=== PATIENT | female | born 1945 | race Caucasian/White ===

== ENCOUNTER 2016-12-05 12:57 | Emergency (ER) | payer OTHER ==
[~2016-12-05] VITALS: Ht 152.4 cm; Wt 71.0 kg
[2016-12-05 13:01] VITALS: Ht 152.4 cm; Wt 71.0 kg
[2016-12-05] MEDS ORDERED: SOD CHLORIDE 0.9% 500 ML IV STA (15:11)
[2016-12-05 15:30] LABS: ADD SCAN DIFF NO
[2016-12-05 15:31] LABS: BASOPHILS % 0.5 % (0.0-2.0); EOSINOPHILS # 0.1 10^3/ul (0.0-0.5); EOSINOPHILS % 0.6 % (0.0-7.0); HEMATOCRIT 32.7 % (37.0-47.0); HEMOGLOBIN 10.4 g/dl (12.0-16.0); LYMPHOCYTES # 1.5 10^3/ul (0.8-2.9); MEAN CORPUSCULAR HEMOGLOBIN 26.9 pg (29.0-33.0); MEAN CORPUSCULAR HGB CONC 31.8 g/dl (32.0-37.0); MEAN CORPUSCULAR VOLUME 84.5 fl (82.0-101.0); MEAN PLATELET VOLUME 9.5 fl (7.4-10.4); MONOCYTE # 0.6 10^3/ul (0.3-0.9); MONOCYTES % 7.7 % (0.0-11.0); NEUTROPHILS % 72.8 % (39.0-77.0); PLATELET COUNT 462 10^3/UL (140-415); RED BLOOD COUNT 3.87 10^6/ul (4.20-5.40); WHITE BLOOD COUNT 8.3 10^3/ul (4.8-10.8)
[2016-12-05 15:38] LABS: ADD UMIC YES; URINE BILIRUBIN (Dip) NEGATIVE (NEGATIVE); URINE BLOOD (Dip) TRACE (NEGATIVE); URINE COLOR LT. YELLOW (YELLOW); URINE GLUCOSE (Dip) NEGATIVE (NEGATIVE); URINE KETONES (Dip) NEGATIVE (NEGATIVE); URINE LEUKOCYTE ESTERASE (Dip) 1+ (NEGATIVE); URINE NITRITE (Dip) NEGATIVE (NEGATIVE); URINE TOTAL PROTEIN (Dip) NEGATIVE (NEGATIVE); URINE UROBILINOGEN (Dip) 1.0 E.U./dL (0.1-1.0)
--- NOTE | 2016-12-05 15:38 | ERD ---
ER Documentation Chief Complaint Date/Time DATE: 12/05/16 TIME: 15:36 Chief Complaint Complains of weakness x 1 month HPI This is a very pleasant 71-year-old female here with her daughter. The patient describes approximate 1 month of generalized weakness that seems to be getting slightly worse. She describes bilateral ear pain and mild lightheadedness which is her only symptom. She denies any vertigo. No chest pain or shortness of breath, no dyspnea on exertion. No fevers or chills, no chest pain abdominal pain nausea vomiting diarrhea. No weight loss. No other complaints. The patient has not seen her primary care doctor during this timeframe. ROS All systems reviewed and are negative except as per history of present illness. Medications Home Meds Active Scripts Cephalexin* (Keflex*) 500 Mg Capsule, 500 MG PO BID for 7 Days, CAP Prov:SIRI WOODWARD MD 12/05/16 Allergies Allergies: Coded Allergies: No Known Allergy (Unverified , 12/05/16) PMhx/Soc Hx Cardiac Disorders: Yes (HTN) Hx Miscellaneous Medical Probl: Yes (DM) FmHx Family History: No diabetes Physical Exam Vitals Vital Signs Date Time Temp Pulse Resp B/P Pulse Ox O2 Delivery O2 Flow Rate FiO2 12/05/16 15:31 Nasal Cannula 2 12/05/16 13:01 98.7 77 20 131/59 99 Physical Exam General: Well developed, well nourished, no acute distress Head: Normocephalic, atraumatic. Eyes: Pupils equally reactive, EOM intact ENT: Moist mucous membranes, posterior pharynx without swelling or exudates, tympanic membranes are nonbulging bilaterally Neck: Supple, no lymphadenopathy Respiratory: Lungs clear bilaterally, no distress Cardiovascular: RRR, no murmurs, rubs, or gallops Abdominal: Soft, non-tender, non-distended, no peritoneal signs : Deferred MSK: No edema, no unilateral swelling, 5/5 strength Neurologic: Alert and oriented, moving all extremities, normal speech, no focal weakness, no cerebellar signs, no pronator drift, steady gait Skin: No rash Psych: Normal mood Result Diagram: 12/05/16 1520 12/05/16 1520 Results 24 hrs Laboratory Tests Test 12/05/16 15:20 12/05/16 15:33 White Blood Count 8.310^3/ul Red Blood Count 3.8710^6/ul Hemoglobin 10.4g/dl Hematocrit 32.7% Mean Corpuscular Volume 84.5fl Mean Corpuscular Hemoglobin 26.9pg Mean Corpuscular Hemoglobin Concent 31.8g/dl Red Cell Distribution Width 14.0% Platelet Count 28830^3/UL Mean Platelet Volume 9.5fl Neutrophils % 72.8% Lymphocytes % 18.0% Monocytes % 7.7% Eosinophils % 0.6% Basophils % 0.5% Nucleated Red Blood Cells % 0.0/100WBC Neutrophils # 6.010^3/ul Lymphocytes # 1.510^3/ul Monocytes # 0.610^3/ul Eosinophils # 0.110^3/ul Basophils # 0.010^3/ul Nucleated Red Blood Cells # 0.010^3/ul Prothrombin Time 14.4Sec Prothrombin Time Ratio 1.1 INR International Normalized Ratio 1.12 Activated Partial Thromboplast Time 33.0Sec Urine Color LT. YELLOW Urine Clarity SLIGHTLY CLOUDY Urine pH 5.5 Urine Specific [place] 1.010 Urine Ketones NEGATIVE Urine Nitrite NEGATIVE Urine Bilirubin NEGATIVE Urine Urobilinogen 1.0 E.U./dL Urine Leukocyte Esterase 1+ Urine Microscopic RBC 0-2/HPF Urine Microscopic WBC 25-50/HPF Urine Squamous Epithelial Cells MODERATE Urine Bacteria FEW Urine Hemoglobin TRACE Urine Glucose NEGATIVE% Urine Total Protein NEGATIVE Sodium Level 135mmol/L Potassium Level 4.9mmol/L Chloride Level 99mmol/L Carbon Dioxide Level 29mmol/L Anion Gap 12 Blood Urea Nitrogen 12mg/dl Creatinine 0.77mg/dl Glucose Level 113mg/dl Calcium Level 9.2mg/dl Total Bilirubin 0.2mg/dl Direct Bilirubin 0.00mg/dl Indirect Bilirubin 0.2mg/dl Aspartate Amino Transf (AST/SGOT) 44IU/L Alanine Aminotransferase (ALT/SGPT) 27IU/L Alkaline Phosphatase 90IU/L Troponin I < 0.012ng/ml Total Protein 7.3g/dl Albumin 3.6g/dl Globulin 3.70g/dl Albumin/Globulin Ratio 0.97 Free Thyroxine Index 3.72ug/ml Thyroxine (T4) 10.0ug/dl Triiodothyronine (T3) Uptake 37.2% Bedside Glucose 102mg/dL Current Medications Medications (Trade) Dose Ordered Sig/Ventura Route PRN Reason Start Time Stop Time Status Last Admin Dose Admin Sodium Chloride 500 ml @ 500 mls/hr Q1H STAT IV 12/05/16 15:11 12/05/16 16:10 DC 12/05/16 15:23 Ceftriaxone Sodium (Rocephin) 50 ml @ 100 mls/hr ONCE ONCE IVPB 12/05/16 17:30 12/05/16 17:59 DC Procedures/MDM EKG, MONITORS, & DIAGNOSTIC IMAGING: EKG: I reviewed and interpreted a 12-lead EKG. Rhythm: Normal sinus rhythm Ectopy: None Intervals: No abnormalities ST segments: No elevations or depressions T waves: No contiguous inversions Chest x-ray: I reviewed and interpreted a 1 view of the chest Mediastinum: No enlargement Cardiac silhouette: No cardiomegaly Airspace: Clear lung light bilaterally without evidence of pneumothorax Bones: No evidence of fracture CT brain: IMPRESSION: 1. No evidence of acute intracranial pathology. 2. The brain is normal in appearance. LAB INTERPRETATION: Urinary tract infection MEDICAL DECISION MAKING: The patient presents with generalized weakness for approximately 1 month. Extremely broad differential given this patient's age including urinary tract infection, subacute cardiac ischemia, subacute stroke, electrolyte disturbance, dehydration, hypothyroidism among others. However, the patient is extremely well-appearing and seems to have a subacute process over the past month. Therefore I have a low clinical concern for acute process at this time that would necessitate hospitalization. Regardless, I believe the patient would benefit from a broad workup including laboratory testing, CT imaging of the head , chest x-ray, EKG. Thyroid testing. If the patient has a negative workup outpatient referral with primary care physician would be reasonable. The patient is well kept, well-hydrated and has good social support. ER COURSE: The patient has UTI. She was provided with ceftriaxone and will be discharged on Keflex. No evidence of sepsis. She continues to be well-appearing and afebrile. Outpatient therapy would be reasonable. Close primary care follow- up recommended. I kept the patient and/or family informed of laboratory and diagnostic imaging results throughout the emergency room course. DISPOSITION PLAN: We discussed follow up with the patient's primary care doctor within 24 to 48 hours as needed. We also discussed return to the emergency room for worsening symptoms or worsening condition. Outpatient referral: None required Discharge Medications: Keflex Departure Diagnosis: Primary Impression: UTI (urinary tract infection) Urinary tract infection type: acute cystitis Hematuria presence: without hematuria Qualified Code: N30.00 - Acute cystitis without hematuria Additional Impression: Generalized weakness Condition: Good SIRI WOODWARD MD Dec 05, 2016 15:38
[2016-12-05 15:41] LABS: INR 1.12; PROTIME 14.4 Sec (12.2-14.2); PT RATIO 1.1
[2016-12-05 15:46] LABS: CHLORIDE 99 mmol/L (97-110)
[2016-12-05 15:47] LABS: ALBUMIN 3.6 g/dl (3.3-4.9); POTASSIUM 4.9 mmol/L (3.5-5.1); SODIUM 135 mmol/L (135-144)
[2016-12-05 15:49] LABS: CREATININE 0.77 mg/dl (0.44-1.00)
[2016-12-05 15:50] LABS: ALANINE AMINOTRANSFERASE 27 IU/L (13-69); ALBUMIN/GLOBULIN RATIO 0.97; ALKALINE PHOSPHATASE 90 IU/L (42-121); ANION GAP 12 (8-16); ASPARTATE AMINO TRANSFERASE 44 IU/L (15-46); BILIRUBIN,INDIRECT 0.2 mg/dl (0-1.1); BILIRUBIN,TOTAL 0.2 mg/dl (0.2-1.3); BLOOD UREA NITROGEN 12 mg/dl (7-20); CALCIUM 9.2 mg/dl (8.4-10.2); CARBON DIOXIDE 29 mmol/L (21-31); GLUCOSE 113 mg/dl (70-220); TOTAL PROTEIN 7.3 g/dl (6.1-8.1)
[2016-12-05 15:53] LABS: BACTERIA,URINE FEW; SQUAMOUS EPITHELIAL CELL,UR MODERATE; URINE RBCS 0-2 /HPF ([, 0])
[2016-12-05 16:06] LABS: TROPONIN-I < 0.012 ng/ml (0.00-0.12)
[2016-12-05 16:07] LABS: T3 UPTAKE 37.2 % (23.5-40.5)
--- NOTE | 2016-12-05 17:08 | RADRPT ---
PROCEDURE: XR Chest. CLINICAL INDICATION: Altered mental status. TECHNIQUE: Portable AP upright view of the chest was obtained. COMPARISON: None. FINDINGS: The cardiomediastinal silhouette is mildly enlarged. The lungs are clear. There is no evidence for pleural effusion, pneumothorax or pulmonary vascular congestion. The osseous structures are intact with no evidence for acute abnormality. RPTAT:HJJR IMPRESSION: Mild cardiac silhouette enlargement without evidence for acute intrathoracic pathology. Physician Stiven Date Time Electronically viewed and signed by Physician Stiven on 12/05/2016 17:08 JR/
[2016-12-05] MEDS ORDERED: CEFTRIAXONE 1 GM/50 ML (PMX) 50 ML IVPB ONE (17:30)
[2016-12-05] MEDS ORDERED: CEPH-443 PO (17:35)
--- NOTE | 2016-12-05 18:09 | RADRPT ---
PROCEDURE: CT Brain without contrast. CLINICAL INDICATION: Altered Mental Status TECHNIQUE: A CT of the brain was performed on a [employer] 64-slice CT scanner utilizing axial imaging from the skull base through the vertex without IV contrast. Multiplanar reformatted images were made. Images were reviewed on a PACS workstation. The CTDIvol is 44 mGy and the DLP is 720 mG ycm. COMPARISON: None FINDINGS: There is no intracranial hemorrhage, mass effect, or midline shift. No extra-axial fluid collection is seen. The ventricles and sulci are normal in size and configuration. The density of the brain is normal, and the mathis white matter differentiation appears well-preserved. The visualized paranasal sinuses and osseous structures are grossly unremarkable. IMPRESSION: 1. No evidence of acute intracranial pathology. 2. The brain is normal in appearance. Physician Daphne Date Time Electronically viewed and signed by Physician Daphne on 12/05/2016 18:09 ML/
[2016-12-05 19:31] VITALS: BP 137/64; PULSE 69; RESP 17; TEMP 98.4
== END 2016-12-05 19:33 | disposition home or self-care (01) ==
LOC: FTE 12:57
DX: N30.00 Acute cystitis without hematuria (principal); I10 Essential (primary) hypertension; E11.9 Type 2 diabetes mellitus without complications; R41.82 Altered mental status, unspecified; R07.9 Chest pain, unspecified
CPT/HCPCS: 70450; 71010; 80053; 81001; 82962; 84436; 84479; 84484; 85025; 85610; 85730; 93005; J0696; J7040; 36415; 81003; 96374

== ENCOUNTER 2016-12-18 10:59 | Emergency (ER) | payer MEDICARE, OTHER ==
[~2016-12-18] VITALS: Ht 162.6 cm; Wt 79.5 kg
[~2016-12-18 10:59] MED LIST: CEPH-443 PO
[2016-12-18 11:25] VITALS: Ht 162.6 cm; Wt 79.5 kg
[2016-12-18] MEDS ORDERED: SOD CHLORIDE 0.9% 1,000 ML IV STA (11:44)
[2016-12-18] MEDS ORDERED: ATEN-51 PO (11:50)
[2016-12-18] MEDS ORDERED: METF-382 PO (11:50)
[2016-12-18] MEDS ORDERED: METF1000 PO (11:52)
--- NOTE | 2016-12-18 12:20 | RADRPT ---
PROCEDURE: XR Chest. CLINICAL INDICATION: Shortness of breath. TECHNIQUE: Single frontal view. COMPARISON: 12/05/2016. FINDINGS: The lungs are clear. The heart is mildly enlarged. There is calcification in the aorta consistent with atherosclerosis. There is no pleural effusion. There is no pneumothorax. IMPRESSION: 1. Cardiomegaly. 2. Atherosclerosis. 3. Clear lungs. RPTAT: QQ .Jerardo Gregory MD, MD Date Time Electronically viewed and signed by .Jerardo Gregory MD, on 12/18/2016 12:19 .R/
[2016-12-18 12:41] LABS: ADD SCAN DIFF NO
[2016-12-18 12:46] LABS: BASOPHILS % 0.4 % (0.0-2.0); EOSINOPHILS # 0.1 10^3/ul (0.0-0.5); EOSINOPHILS % 0.6 % (0.0-7.0); HEMATOCRIT 31.4 % (37.0-47.0); HEMOGLOBIN 9.6 g/dl (12.0-16.0); LYMPHOCYTES # 1.6 10^3/ul (0.8-2.9); LYMPHOCYTES % 14.9 % (15.0-51.0); MEAN CORPUSCULAR HEMOGLOBIN 25.9 pg (29.0-33.0); MEAN CORPUSCULAR HGB CONC 30.6 g/dl (32.0-37.0); MEAN CORPUSCULAR VOLUME 84.9 fl (82.0-101.0); MEAN PLATELET VOLUME 9.8 fl (7.4-10.4); MONOCYTE # 0.8 10^3/ul (0.3-0.9); MONOCYTES % 7.6 % (0.0-11.0); NEUTROPHILS % 75.9 % (39.0-77.0); PLATELET COUNT 495 10^3/UL (140-415); RED CELL DISTRIBUTION WIDTH 14.5 % (11.5-14.5); WHITE BLOOD COUNT 10.5 10^3/ul (4.8-10.8)
[2016-12-18 13:00] LABS: ALBUMIN 3.3 g/dl (3.3-4.9); CHLORIDE 98 mmol/L (97-110)
[2016-12-18 13:01] LABS: POTASSIUM 4.2 mmol/L (3.5-5.1); SODIUM 136 mmol/L (135-144)
[2016-12-18 13:03] LABS: ALBUMIN/GLOBULIN RATIO 0.78; ALKALINE PHOSPHATASE 88 IU/L (42-121); ANION GAP 18 (8-16); ASPARTATE AMINO TRANSFERASE 36 IU/L (15-46); BILIRUBIN,INDIRECT 0.5 mg/dl (0-1.1); BILIRUBIN,TOTAL 0.5 mg/dl (0.2-1.3); BLOOD UREA NITROGEN 12 mg/dl (7-20); CARBON DIOXIDE 24 mmol/L (21-31); TOTAL PROTEIN 7.5 g/dl (6.1-8.1)
[2016-12-18 13:04] LABS: ALANINE AMINOTRANSFERASE 24 IU/L (13-69); GLUCOSE 114 mg/dl (70-220)
[2016-12-18 13:15] LABS: TROPONIN-I < 0.012 ng/ml (0.00-0.12)
--- NOTE | 2016-12-18 13:15 | RADRPT ---
PROCEDURE: CT Abdomen and Pelvis without contrast. CLINICAL INDICATION: Abdominal and pelvic pain. Abdominal distension. Shortness of breath. TECHNIQUE: CT scan of the abdomen and pelvis without contrast was performed. Coronal and sagittal reformatted images were obtained from the axial source images. Images were reviewed on a high-resolu [employer] PACS workstation. Total exam DLP is 1072.14 mGy-cm. CTDIvol is 17.94 mGy. One or more of the following dose reduction techniques were used: Automated exposure control, adjustment of the mA and/ or kV according to patient size, use of iterative reconstruction technique. COMPARISON: None. FINDINGS: The lung bases are normal. There is no pleural effusion or pericardial effusion. The heart size is normal. There is coronary artery calcification. The liver is normal in size and attenuation. There is no focal hepatic lesion. Gallstones are present in the gallbladder. There is no evidence of cholecystitis. The spleen is mildly enlarged. There is no focal splenic lesion. Both adrenals are normal with no enlargement or mass. The pancreas is unremarkable with no mass or evidence of pancreatitis. There is no renal mass or hydronephrosis. There is no renal calculus or ureteral calculus. The abdominal aorta is not dilated. There is calcification in the aorta consistent with atherosclero sis. There is no retroperitoneal lymphadenopathy or mass. The uterus is normal in size. There are small calcifications in the left side of the uterus which m ay be due to fibroids. There is a large heterogeneous mass in the midline to left side of pelvis me asuring 13.8 x 14.5 x 17.2 cm in AP, transverse, and cranial caudal dimensions. The bladder and distal ureters are normal. The periappendiceal region is unremarkable with no evidence of appendicitis. The bowel and mesentery are normal. There is a large amount of ascites. There is no free air. There are degenerative changes of the spine. There is no fracture or lytic lesion. IMPRESSION: 1. Coronary artery calcification. 2. Gallstones in the gallbladder. No evidence of cholecystitis. 3. Mild splenomegaly. 4. Atherosclerosis. 5. Possible small fibroid in the left side of uterus. 6. Large heterogeneous mass in the midline the left side of pelvis measuring 13.8 x 14.5 x 17.2 cm. This may be arising from the uterus or may be due to an ovarian neoplasm. Gynecologic consultatio n is advised. 7. Large amount of ascites. 8. Degenerative changes of the spine. RPTAT: QQ .Jerardo Gregory MD, Date Time Electronically viewed and signed by .Jerardo Gregory MD, on 12/18/2016 13:15 .R/
[2016-12-18 14:38] LABS: ADD UMIC YES; URINE BILIRUBIN (Dip) NEGATIVE (NEGATIVE); URINE BLOOD (Dip) TRACE (NEGATIVE); URINE COLOR LT. YELLOW (YELLOW); URINE GLUCOSE (Dip) NEGATIVE (NEGATIVE); URINE KETONES (Dip) NEGATIVE (NEGATIVE); URINE LEUKOCYTE ESTERASE (Dip) NEGATIVE (NEGATIVE); URINE NITRITE (Dip) NEGATIVE (NEGATIVE); URINE TOTAL PROTEIN (Dip) NEGATIVE (NEGATIVE); URINE UROBILINOGEN (Dip) 1.0 E.U./dL (0.1-1.0)
[2016-12-18 14:47] LABS: BACTERIA,URINE FEW; URINE RBCS 0-2 /HPF (0)
--- NOTE | 2016-12-18 15:06 | ERD ---
ER Documentation Chief Complaint Date/Time DATE: 12/18/16 TIME: 15:02 Chief Complaint sob on exertion, abd distention x 2 weeks HPI 71-year-old woman presents with recent mild dyspnea on exertion the main complaint is abdominal distention 2 weeks and complains of constipation. She also states she's lost about 10 pounds in the last couple of months. She denies blood per rectum or melena, no fevers or chills, no vomiting or diarrhea, no chest pain or recent travel. Patient denies calf or leg swelling. ROS All systems reviewed and are negative except as per history of present illness. Medications Home Meds Active Scripts Docusate Sodium* (Colace*) 100 Mg Capsule, 100 MG PO TID for CONSTIPATION, #30 CAP Prov:MIN NEWTON MD 12/18/16 Ibuprofen* (Motrin*) 600 Mg Tab, 600 MG PO Q8 for PAIN AND/OR INFLAMMATION, #30 TAB Prov:MIN NEWTON MD 12/18/16 Furosemide* (Lasix*) 20 Mg Tablet, 20 MG PO DAILY, #10 TAB Prov:MIN NEWTON MD 12/18/16 Reported Medications Metformin Hcl* (Metformin Hcl*) 1,000 Mg Tablet, 1000 MG PO WITH BREAKFAST, #30 TAB 12/18/16 Atenolol* (Atenolol*) 25 Mg Tablet, 25 MG PO DAILY, #30 TAB 12/18/16 Discontinued Reported Medications Metformin Hcl* (Metformin Hcl*) 500 Mg Tablet, 500 MG PO WITH BREAKFAST, #30 TAB 12/18/16 Discontinued Scripts Cephalexin* (Keflex*) 500 Mg Capsule, 500 MG PO BID for 7 Days, CAP Prov:SIRI WOODWARD MD 12/05/16 Allergies Allergies: Coded Allergies: No Known Allergy (Unverified , 12/18/16) PMhx/Soc Diabetes, hypertension, obesity Medical and Surgical Hx: pt denies Surgical Hx Hx Cardiac Disorders: Yes (HTN) Hx Miscellaneous Medical Probl: Yes (DM) Hx Alcohol Use: No Hx Substance Use: No Smoking Status: Never smoker FmHx Family History: No diabetes Physical Exam Vitals Vital Signs Date Time Temp Pulse Resp B/P Pulse Ox O2 Delivery O2 Flow Rate FiO2 12/18/16 17:03 98.3 87 18 140/73 99 Room Air 12/18/16 11:25 98.3 86 22 143/76 99 Physical Exam GENERAL: Well-developed, well-nourished, well-hydrated, in no apparent distress , looks nontoxic in appearance HEENT: Moist mucous membranes, pink conjunctiva, no cervical spine tenderness or step-off deformities, no goiter, no jaundice or icterus, extraocular movements intact without pain. No submandibular induration, and no pharyngeal erythema NEURO: Alert and oriented 3, cranial nerves II through XII intact bilaterally, pupils equal round reactive to light, no focal deficits or facial asymmetry, sensation intact distally Strength 5/5 in upper and lower extremities bilaterally CARDIAC: Regular rate and rhythm, no murmurs rubs or gallops LUNGS: Clear bilaterally no wheezing crackles or stridor ABDOMEN: Distended, protuberant abdomen without tenderness or rigidity, bowel sounds normoactive. SKIN: Warm and dry to touch, no abrasions, contusions, or hematomas, no lacerations, no ecchymosis, no target lesions, and without ulcers EXTREMITIES: No clubbing cyanosis, 1+ pitting edema in the lower extremities bilaterally, calves are bilaterally symmetrical, no Homans sign, no popliteal cord sign. Distal pulses equal and bilateral PSYCH: Normal affect without agitation or irritability Result Diagram: 12/18/16 1220 12/18/16 1220 Results 24 hrs Laboratory Tests Test 12/18/16 12:20 12/18/16 14:10 White Blood Count 10.510^3/ul Red Blood Count 3.7010^6/ul Hemoglobin 9.6g/dl Hematocrit 31.4% Mean Corpuscular Volume 84.9fl Mean Corpuscular Hemoglobin 25.9pg Mean Corpuscular Hemoglobin Concent 30.6g/dl Red Cell Distribution Width 14.5% Platelet Count 03911^3/UL Mean Platelet Volume 9.8fl Neutrophils % 75.9% Lymphocytes % 14.9% Monocytes % 7.6% Eosinophils % 0.6% Basophils % 0.4% Nucleated Red Blood Cells % 0.0/100WBC Neutrophils # 8.010^3/ul Lymphocytes # 1.610^3/ul Monocytes # 0.810^3/ul Eosinophils # 0.110^3/ul Basophils # 0.010^3/ul Nucleated Red Blood Cells # 0.010^3/ul Sodium Level 136mmol/L Potassium Level 4.2mmol/L Chloride Level 98mmol/L Carbon Dioxide Level 24mmol/L Anion Gap 18 Blood Urea Nitrogen 12mg/dl Creatinine 0.80mg/dl Glucose Level 114mg/dl Calcium Level 9.0mg/dl Total Bilirubin 0.5mg/dl Direct Bilirubin 0.00mg/dl Indirect Bilirubin 0.5mg/dl Aspartate Amino Transf (AST/SGOT) 36IU/L Alanine Aminotransferase (ALT/SGPT) 24IU/L Alkaline Phosphatase 88IU/L Troponin I < 0.012ng/ml B-Type Natriuretic Peptide 710PG/ML Total Protein 7.5g/dl Albumin 3.3g/dl Globulin 4.20g/dl Albumin/Globulin Ratio 0.78 Lipase 50U/L Carcinoembryonic Antigen 1.4ng/ml CA 125 Antigen 719.0U/ml Urine Color LT. YELLOW Urine Clarity CLEAR Urine pH 5.5 Urine Specific [place] 1.010 Urine Ketones NEGATIVE Urine Nitrite NEGATIVE Urine Bilirubin NEGATIVE Urine Urobilinogen 1.0 E.U./dL Urine Leukocyte Esterase NEGATIVE Urine Microscopic RBC 0-2/HPF Urine Microscopic WBC 0-2/HPF Urine Bacteria FEW Urine Hemoglobin TRACE Urine Glucose NEGATIVE% Urine Total Protein NEGATIVE Current Medications Medications (Trade) Dose Ordered Sig/Ventura Route PRN Reason Start Time Stop Time Status Last Admin Dose Admin Sodium Chloride (NS) 1,000 ml @ 1,000 mls/hr Q1H STAT IV 12/18/16 11:44 12/18/16 12:43 DC 12/18/16 12:12 Furosemide (Lasix) 40 mg ONCE ONCE IV 12/18/16 16:00 12/18/16 16:01 DC 12/18/16 16:08 Procedures/[facility] IV line was established patient was placed on cardiac rehab nurse rhythm strip revealed a sinus rhythm at about 80 bpm with upright P and T waves. Patient was afebrile. EKG performed, read by me: 85 bpm, normal sinus rhythm, normal axis, no acute ST segment changes, narrow QRS complex, with good R-wave progression in precordial leads. Chest X-ray 1V Interpreted by me: Soft Tissue: No acute abnormalities Bones: No acute abnormalities Mediastinum/Cardiac Silhouette/Lungs: No acute abnormalities CT scan of abdomen pelvis was performed revealing a large right pelvic mass most likely emanating from the ovary. Please refer to radiologist dictation for full report. CBC and electrolytes were normal, liver function tests normal, troponin was negative, urinalysis was negative for infection. I administered furosemide 40 mg IV for diuresis with improvement in patient's symptoms. BNP was borderline at about 700 the patient has clear lungs, is without complaints of shortness of breath at this time, and was able to breathe without difficulty while laying in a supine position. Furthermore she got up to use the restroom multiple times and showed no evidence of dyspnea on exertion. Pulmonary exam was repeated by me and lung sounds remained clear and respiratory rate was 18 breaths per minute and normal. Emergent gynecology consultation was ordered by me and Dr. Candelaria did see and evaluate the patient at the bedside and had a long discussion with her and her family members who were also at the bedside. She provided them with verbal recommendations for outpatient management and spoke to them about the possibility of pelvic neoplasm. She also requested I order HE4, CEA, and CA-125 tests which I did. CA-125 elevated concerning for pelvic neoplasm. See antigen was low. I provided the patient's son who is at the bedside with a copy of the lab values and CAT scan results, the patient does have follow-up with her medical clinic and a pension examiner at that facility. I also gave her the address and phone numbers to multiple [facility] associated gynecologists that she can see. Differential diagnoses considered, included but not limited to acute coronary syndrome, pulmonary embolism, aortic dissection, abdominal aortic aneurysm, sepsis, stroke, meningitis, encephalitis, pneumonia, appendicitis, cholecystitis , bowel obstruction, pyelonephritis, nephrolithiasis, cystitis, as well as metabolic, hematologic, and electrolyte abnormalities. As well as abscess, cellulitis, fractures, and dislocations. Patient feels much better at this time, and vital signs are normal, symptoms have improved. I did give strict instructions to return to the ED if symptoms continue or worsen, patient will otherwise follow-up with primary care physician. Patient understood instructions and agreed to plan. Departure Diagnosis: Primary Impression: Constipation Constipation type: unspecified constipation type Qualified Code: K59.00 - Constipation, unspecified constipation type Additional Impressions: Abdominal distention Pelvic neoplasm Condition: Good MIN NEWTON MD Dec 18, 2016 15:06
[2016-12-18] MEDS ORDERED: FUROSEMIDE 40 MG INJ IV ONE (16:00)
[2016-12-18] MEDS ORDERED: DOCU-144 PO (16:43)
[2016-12-18] MEDS ORDERED: FURO-110 PO (16:43)
[2016-12-18] MEDS ORDERED: IBUP-1542 PO (16:43)
[2016-12-18 17:03] VITALS: BP 140/73; PULSE 87; RESP 18; TEMP 98.3
[2016-12-18 17:28] LABS: CARCINOEMBRYONIC ANTIGEN 1.4 ng/ml (0.0-5.0)
--- NOTE | 2016-12-18 19:44 | QN ---
Documentation Comment Laborist Called to ER to consult on this 71 y.o. female who came in with SOB and abdominal distention and found to have a [id number] mass on CT scan with some abdominal ascites. The pt reports the abdominal distention as being present for only a few days. No associated pain. Pt's appetite has been diminished as she fills quickly. Pt has an appt at a clinic on 12/23 with an unspecified doctor. She reports she had her last physical exam and Pap there a few months ago. PMHx: Diabetes, on oral meds. HTN but not currently on meds. Hypercholesterolemia. PSHx: none. NKDA. On CT scan it is not readily apparent as to whether or not the mass is a fibroid or an ovarian tumor but is more likely to be ovarian in origin. O2 sat 99% EKG normal and pt w/o a h/o CHF. All cardiac labs normal except b natriuretic peptide which was 710, posssibly c/ w a mild cardiac congestion. Per the ER doctor the cutoff for immediate concern is 1000. 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 P: discussed with both the pt and her family that she does need surgery but it is not an emergent condition but should be handled sooner rather than later. We will give her a copy of the CT scan to take to her doctor and will draw a CA-125 , HE4, and CEA and those values can be checked at her visit on 12/23. Explained to the pt as she has Medicare and [employer] as a secondary that she does not need a referral to see an appropriate doctor and that the lab values will determine whether a Faculty Research Assistant or a AIR LIFT OPERATOR-Oncologist will do the surgery. Will give pt a referral list in case she is not referred quickly to another doctor by the doctor she is seeing on . Also the ER doctor explained to the pt about the cardiac labs and the importance of following up on those values and that we feel comfortable sending her home now as she is very stable. The patient and her family asked appropriate questions and they seemed to have a good understanding of the findings and were comfortable with her going home. LEE SMALL MD Dec 18, 2016 19:44
== END 2016-12-18 17:04 | disposition home or self-care (01) ==
LOC: E/R 10:59
DX: K59.00 Constipation, unspecified (principal); C76.3 Malignant neoplasm of pelvis; I10 Essential (primary) hypertension; E11.9 Type 2 diabetes mellitus without complications; E66.9 Obesity, unspecified; R10.9 Unspecified abdominal pain; Z79.84 Long term (current) use of oral hypoglycemic drugs; Z68.30 Body mass index [BMI] 30.0-30.9, adult
CPT/HCPCS: 36415; 71010; 74176; 80053; 81001; 81003; 82378; 83690; 83880; 84484; 85025; 86304; 86305; 87086; 93005; 96374; 99285; J1940; J7030

== ENCOUNTER 2019-01-19 17:47 | Inpatient (IN) | payer MEDICARE, OTHER ==
[~2019-01-19] VITALS: Ht 152.4 cm; Wt 75.8 kg
[~2019-01-19 17:47] MED LIST changes: +ATEN-51 PO; -CEPH-443 PO; +DOCU-144 PO; +FURO-110 PO; +IBUP-1542 PO; +METF100010 PO
[2019-01-19 17:48] VITALS: Ht 152.4 cm; Wt 75.8 kg
[2019-01-19] MEDS ORDERED: ASPIRIN 81 MG TAB PO STA (19:03)
[2019-01-19] MEDS ORDERED: ONDANSETRON 4 MG INJ IV STA (19:03)
[2019-01-19] MEDS ORDERED: morphine 2 MG INJ IV STA (19:03)
--- NOTE | 2019-01-19 19:54 | ERD ---
ER Documentation Chief Complaint Chief Complaint epigastric pain since 11 am HPI 73-year-old female who presents to the emergency room with chest pain and back pain. The patient states that she has a pain for 2 to 3 days. Her family is interpreting. The pain noted in the central portion of her chest and upper back, left-sided. She denies any middle of the back pain, ripping or tearing sensation or sudden onset of pain. No shortness of breath or pleuritic pain. Mild episode of nausea with one episode of nonbloody nonbilious emesis. No epigastric abdominal pain despite what was noted in triage. No fevers chills cough or hemoptysis. ROS All systems reviewed and are negative except as per history of present illness. Medications Home Meds Active Scripts Docusate Sodium* (Colace*) 100 Mg Capsule, 100 MG PO TID for CONSTIPATION, #30 CAP Prov:MIN NEWTON MD 12/18/16 Ibuprofen* (Motrin*) 600 Mg Tab, 600 MG PO Q8 for PAIN AND/OR INFLAMMATION, #30 TAB Prov:MIN NEWTON MD 12/18/16 Furosemide* (Lasix*) 20 Mg Tablet, 20 MG PO DAILY, #10 TAB Prov:MIN NEWTON MD 12/18/16 Reported Medications Metformin Hcl* (Metformin Hcl*) 1,000 Mg Tablet, 1000 MG PO WITH BREAKFAST, #30 TAB 12/18/16 Atenolol* (Atenolol*) 25 Mg Tablet, 25 MG PO DAILY, #30 TAB 12/18/16 Allergies Allergies: Coded Allergies: No Known Allergy (Unverified , 12/18/16) PMhx/Soc History of Surgery: Yes (ovarian CA removed, cardiac valve replacement) Anesthesia Reaction: No Hx Cardiac Disorders: Yes (HTN, valve replacement, hyperlipidemia) Hx Miscellaneous Medical Probl: Yes (DM, previous ovarian CA) Hx Alcohol Use: No Hx Substance Use: No Hx Tobacco Use: No Smoking Status: Unknown if ever smoked FmHx Family History: No diabetes Physical Exam Vitals Vital Signs Date Temp Pulse Resp B/P (MAP) Pulse Ox O2 O2 Flow FiO2 Time Delivery Rate 01/19/19 67 14 132/48 97 Room Air 20:52 (76) 01/19/19 98.2 83 19 141/65 97 17:48 (90) Physical Exam General: Well developed, well nourished, no acute distress Head: Normocephalic, atraumatic. Eyes: Pupils equally reactive, EOM intact ENT: Moist mucous membranes Neck: Supple, no lymphadenopathy Respiratory: Lungs clear bilaterally, no distress Cardiovascular: RRR, no murmurs, rubs, or gallops Abdominal: Soft, non-tender, non-distended, no peritoneal signs : Deferred MSK: No edema, no unilateral swelling, 5/5 strength Neurologic: Alert and oriented, moving all extremities, normal speech, no focal weakness, no cerebellar signs Skin: No rash Psych: Normal mood Result Diagram: 01/19/19192401/19/191924 Results 24 hrs Laboratory Tests Test 01/19/19 19:25 White Blood Count 6.0 10^3/ul Red Blood Count 4.89 10^6/ul Hemoglobin 14.5 g/dl Hematocrit 42.5 % Mean Corpuscular Volume 86.9 fl Mean Corpuscular Hemoglobin 29.7 pg Mean Corpuscular Hemoglobin Concent 34.1 g/dl Red Cell Distribution Width 12.6 % Platelet Count 178 10^3/UL Mean Platelet Volume 11.0 fl Immature Granulocytes % 0.500 % Neutrophils % 85.1 % Lymphocytes % 7.3 % Monocytes % 6.5 % Eosinophils % 0.3 % Basophils % 0.3 % Nucleated Red Blood Cells % 0.0 /100WBC Immature Granulocytes # 0.030 10^3/ul Neutrophils # 5.1 10^3/ul Lymphocytes # 0.4 10^3/ul Monocytes # 0.4 10^3/ul Eosinophils # 0.0 10^3/ul Basophils # 0.0 10^3/ul Nucleated Red Blood Cells # 0.0 10^3/ul Prothrombin Time 13.0 Sec Prothrombin Time Ratio 1.0 INR International Normalized Ratio 0.97 Activated Partial Thromboplast Time 27.5 Sec Sodium Level 139 mmol/L Potassium Level 3.2 mmol/L Chloride Level 93 mmol/L Carbon Dioxide Level 34 mmol/L Anion Gap 12 Blood Urea Nitrogen 26 mg/dl Creatinine 0.85 mg/dl Est Glomerular Filtrat Rate mL/min mL/min Glucose Level 217 mg/dl Calcium Level 10.3 mg/dl Troponin I < 0.012 ng/ml Current Medications Medications Dose Sig/[place] Start Time Status Last (Trade) Ordered Route PRN Stop Time Admin Dose Reason Admin Aspirin 162 mg ONCE STAT 01/19/19 DC 01/19/19 (Aspirin) PO 19:03 19:38 01/19/19 19:04 Morphine 2 mg ONCE STAT 01/19/19 DC 01/19/19 Sulfate IV 19:03 19:38 (morphine) 01/19/19 19:04 Ondansetron 4 mg ONCE STAT 01/19/19 DC 01/19/19 HCl (Zofran IV 19:03 19:38 Inj) 01/19/19 19:04 Ondansetron 4 mg ER BRIDGE 01/19/19 HCl (Zofran PRN IV 21:00 Inj) NAUSEA/VOMITI 01/20/19 20:59 NG 650 mg ER BRIDGE 01/19/19 Acetaminophen PRN PO 21:00 (Tylenol .MILD PAIN 01/20/19 20:59 Tab) 1-3 OR TEMP Procedures/MDM EKG, MONITORS, & DIAGNOSTIC IMAGING: EKG: I reviewed and interpreted a 12-lead EKG. Rhythm: Normal sinus rhythm ST Changes: No contiguous ST segment elevations T waves: No contiguous T wave inversions Impression: [No evidence of acute cardiac ischemia] Repeat EKG: EKG: I reviewed and interpreted a 12-lead EKG. Rhythm: Normal sinus rhythm ST Changes: No contiguous ST segment elevations T waves: No contiguous T wave inversions Impression: [No evidence of acute cardiac ischemia] Chest x-ray: I reviewed and interpreted a 1 view of the chest Mediastinum: No enlargement Cardiac silhouette: No cardiomegaly Airspace: Clear lung light bilaterally without evidence of pneumothorax Bones: No evidence of fracture PROCEDURES: [None] LAB INTERPRETATION: * Negative troponin MEDICAL DECISION MAKING: The patient's history, physical exam and clinical presentation is concerning for possible cardiogenic etiology and acute coronary syndrome. Based on the patient's clinical exam and history and risk factors, I have a much lower clinical concern for pulmonary embolism, acute aortic dissection, pneumothorax, pneumonia, cardiac tamponade HEART Score: >3 MACE Rate: up to 16.6% Shared Decision Making: We had a conversation regarding risk stratification, MACE rate, and the risks, benefits, alternatives of disposition planning options. Disposition planning: admit for r/o ER COURSE: * ASA and pain meds given * Pain-free. Negative troponin. CONSULTATION: [None] DISPOSITION PLAN: Telemetry admission for management of chest pain to rule out acute coronary s yndrome, serial enzymes, risk stratification and consideration of provocative testing CONSULTATION: Accepting care team and consultations: I discussed the current laboratory data, diagnostic imaging and emergency care provided. Admitting team: Dr. Adams Admitting team indication: Insurance directed Departure Diagnosis: Primary Impression: Chest pain Chest pain type: unspecified Qualified Codes: R07.9 - Chest pain, unspecified Condition: Stable SIRI WOODWARD MD January 19, 2019 19:54
[2019-01-19] MEDS ORDERED: ONDANSETRON 4 MG INJ IV PRN (21:00)
[2019-01-19] MEDS ORDERED: ACETAMINOPHEN 325 MG TAB PO PRN ×2 (21:00→23:30)
--- NOTE | 2019-01-19 23:17 | HP ---
Date/Time of Note Date/Time of Note DATE: 01/19/19 TIME: 23:17 Assessment/Plan VTE Prophylaxis Pharmacological prophylaxis: heparin Lines/Catheters IV Catheter Type (from Nrsg): Saline Lock Assessment/Plan Assessment/Plan 1. Chest pain: Rule out ACS -Telemetry monitoring -Aspirin, nitro. As needed supplemental oxygen -Serial troponin -2D echo -EKG without ST elevation or depression -Cardiology consult 2. Diffuse abdominal pain with nausea/vomiting -Obtain CT abdomen/pelvis -PPI 3. Hypertension: Adjust antihypertensive as needed 4. Type 2 diabetes: Check A1c. Continue metformin with ISS 5. History of ovarian cancer: Status post surgery 6. Probable history of CHF: Continue Lasix. Follow-up 2D echo result Result Diagram: 01/19/19192401/19/191924 Results 24hrs Laboratory Tests Test 01/19/19 19:25 White Blood Count 6.0 # Red Blood Count 4.89 # Hemoglobin 14.5 # Hematocrit 42.5 # Mean Corpuscular Volume 86.9 Mean Corpuscular Hemoglobin 29.7 Mean Corpuscular Hemoglobin Concent 34.1 Red Cell Distribution Width 12.6 Platelet Count 178 # Mean Platelet Volume 11.0 H Immature Granulocytes % 0.500 H Neutrophils % 85.1 H Lymphocytes % 7.3 L Monocytes % 6.5 Eosinophils % 0.3 Basophils % 0.3 Nucleated Red Blood Cells % 0.0 Immature Granulocytes # 0.030 Neutrophils # 5.1 Lymphocytes # 0.4 L Monocytes # 0.4 Eosinophils # 0.0 Basophils # 0.0 Nucleated Red Blood Cells # 0.0 Prothrombin Time 13.0 Prothrombin Time Ratio 1.0 INR International Normalized Ratio 0.97 Activated Partial Thromboplast Time 27.5 Sodium Level 139 Potassium Level 3.2 L Chloride Level 93 L Carbon Dioxide Level 34 H Anion Gap 12 Blood Urea Nitrogen 26 H Creatinine 0.85 Est Glomerular Filtrat Rate mL/min Glucose Level 217 Calcium Level 10.3 H Troponin I < 0.012 HPI/ROS Admit Date/Time Admit Date/Time Hx of Present Illness This is a 73-year-old female with a history of hypertension, type 2 diabetes, dyslipidemia, valve replacement, ovarian cancer status post surgery who presents the ER complaining of chest pain, diffuse abdominal pain, shortness of breath, nausea/vomiting. Reported chest pain started in the lower abdominal area which moved up to her chest. Patient is accompanied by her son at the bedside who helped with the history taking. Abdominal pain is diffuse, but mainly in the right upper/lower quadrant and left upper/lower quadrant area. Reported nonbilious nonbloody vomiting which started about an hour prior to arrival to the ER. Denies diarrhea. Also reported upper back pain. Denied trauma PMH/Family/Social Past Medical History Medical History: other (See HPI) Medications Current Medications Ondansetron HCl (Zofran Inj) 4 mg ER BRIDGE PRN IV NAUSEA/VOMITING; Start 01/19/19 at 21:00; Stop 01/20/19 at 20:59 Acetaminophen (Tylenol Tab) 650 mg ER BRIDGE PRN PO .MILD PAIN 1-3 OR TEMP; Start 01/19/19 at 21:00; Stop 01/20/19 at 20:59 Coded Allergies: No Known Allergy (Unverified , 12/18/16) Past Surgical History Past Surgical Hx: other (See HPI) Family History Significant Family History: no pertinent family hx Social History Alcohol Use: none Smoking Status: Unknown if ever smoked Drug Use: none Exam/Review of Systems Vital Signs Vitals Vital Signs Date Temp Pulse Resp B/P (MAP) Pulse Ox O2 O2 Flow FiO2 Time Delivery Rate 01/19/19 67 14 132/48 97 Room Air 20:52 (76) 01/19/19 98.2 17:48 Exam Constitutional: other (No acute distress) Head: normocephalic, atraumatic Eyes: PERRL Respiratory: clear to auscultation, normal air movement Cardiovascular: regular rate and rhythm, nl pulses Gastrointestinal: soft Extremities: normal pulses CHRIS SOTO MD January 19, 2019 23:17
[2019-01-19] MEDS: INSULIN GLARGINE [LANTus] (100 UNITS/ML) SYG SC SCH (23:30)
[2019-01-19] MEDS ORDERED: NACL 0.9% 3 ML SYG IV SCH (23:30)
[2019-01-19] MEDS ORDERED: ALBUTEROL/IPRATROPIUM (NEB) 3 ML AMP HHN PRN (23:30)
[2019-01-19] MEDS ORDERED: NITROGLYCERIN (SL) 0.4 MG TAB SL PRN (23:30)
[2019-01-20] VITALS (22 sets, daily range): BP systolic 76–142; BP diastolic 44–108; PULSE 64–100; RESP 17–34
[2019-01-20] MEDS ORDERED: IBUP-1544 PO (01:30)
[2019-01-20] MEDS ORDERED: CHLO25TA2 PO (01:30)
[2019-01-20] MEDS: ACCU-CHEK XX SCH (02:00)
[2019-01-20] MEDS ORDERED: POTASSIUM CHLORIDE (SR) 20 MEQ TAB PO ONE (02:13)
[2019-01-20] MEDS ORDERED: GLUCAGON 1 MG INJ IM PRN (02:30)
[2019-01-20] MEDS ORDERED: GLUCOSE GEL 15 GRAM TUBE PO PRN ×2 (02:30)
[2019-01-20] MEDS ORDERED: GLUCOSE GEL 15 GRAM TUBE BUCCAL PRN (02:30)
[2019-01-20] MEDS ORDERED: DEXTROSE 50% 50 ML SYRINGE IV PRN ×2 (02:30)
[2019-01-20] MEDS: INSULIN ASPART [NOVOLOG] 3 ML PEN SC SCH ×5 (07:55→20:52)
[2019-01-20] MEDS: metFORMIN 500 MG TAB PO SCH (08:13)
[2019-01-20] MEDS: DOCUSATE SODIUM 100 MG CAP PO SCH ×4 (08:14→21:00)
[2019-01-20] MEDS: ASPIRIN 81 MG TAB PO SCH (08:14)
[2019-01-20] MEDS: ATENOLOL 25 MG TAB PO SCH (08:15)
[2019-01-20] MEDS: FUROSEMIDE 20 MG TAB PO SCH (08:15)
[2019-01-20] MEDS: HEPARIN 5,000 UNIT/1 ML VIAL SC SCH ×2 (08:15→20:59)
[2019-01-20] MEDS: ONDANSETRON 4 MG INJ IV PRN (10:35)
--- NOTE | 2019-01-20 17:46 | PN ---
Date/Time of Note Date/Time of Note DATE: 01/20/19 TIME: 17:39 Assessment/Plan VTE Prophylaxis Risk score (from Ns)>0 risk: 2 SCD applied (from Ns): Yes Pharmacological prophylaxis: heparin Lines/Catheters IV Catheter Type (from Nrs): Peripheral IV Assessment/Plan Hospital Course 1. Acute encephalopathy Patient went into A. fib and was subsequently noted to be altered, code stroke has been called, CT head is currently negative and patient is now more arousable Telemetry neurology consultation appreciated, no indication for TPA, recommendation is for MRI of the head No reported history of A. fib and the patient presented in sinus rhythm, consider anticoagulation for stroke prevention Patient with a fever of [address] abdomen that shows possible cholecystitis Zosyn IV Echo and carotid ultrasound 2. Abdominal pain like secondary to acute cholecystitis CT abdomen shows likely acute cholecystitis Follow-up on ultrasound of the abdomen and HIDA Zosyn IV Surgery consultation obtained 3. Chest pain No evidence of ACS Follow-up echo 4. Hypertension Adjust antihypertensive as needed 5. Type 2 diabetes A1c at 6.6 Sliding scale 6. History of ovarian cancer: Status post surgery Prophylaxis: Heparin Result Diagram: 01/20/19 0337 01/20/19 0336 Results 24hrs Laboratory Tests Test 01/19/19 19:25 01/20/19 03:36 01/20/19 03:37 01/20/19 04:19 White Blood Count 6.0 # 5.2 Red Blood Count 4.89 # 4.58 Hemoglobin 14.5 # 13.8 Hematocrit 42.5 # 39.9 Mean Corpuscular 86.9 87.1 Volume Mean Corpuscular 29.7 30.1 Hemoglobin Mean Corpuscular 34.1 34.6 Hemoglobin Concent Red Cell 12.6 12.8 Distribution Width Platelet Count 178 # 141 # Mean Platelet Volume 11.0 H 11.3 H Immature 0.500 H 0.400 Granulocytes % Neutrophils % 85.1 H 77.6 H Lymphocytes % 7.3 L 13.0 L Monocytes % 6.5 8.0 Eosinophils % 0.3 0.4 Basophils % 0.3 0.6 Nucleated Red Blood 0.0 0.0 Cells % Immature 0.030 0.020 Granulocytes # Neutrophils # 5.1 4.1 Lymphocytes # 0.4 L 0.7 L Monocytes # 0.4 0.4 Eosinophils # 0.0 0.0 Basophils # 0.0 0.0 Nucleated Red Blood 0.0 0.0 Cells # Prothrombin Time 13.0 Prothrombin Time 1.0 Ratio INR International 0.97 Normalized Ratio Activated 27.5 Partial Thromboplast Time Sodium Level 139 139 Potassium Level 3.2 L 3.1 L Chloride Level 93 L 96 L Carbon Dioxide Level 34 H 32 H Anion Gap 12 11 Blood Urea Nitrogen 26 H 22 H Creatinine 0.85 0.82 Est Glomerular Filtrat Rate mL/min Glucose Level 217 159 Calcium Level 10.3 H 9.5 Troponin I < 0.012 < 0.012 Hemoglobin A1c 6.6 H Magnesium Level 1.8 Total Bilirubin 2.9 H Direct Bilirubin 1.60 H Indirect Bilirubin 1.3 H Aspartate Amino 1176 H Transf (AST/SGOT) Alanine 878 H Aminotransferase (AL T/SGPT) Alkaline Phosphatase 304 H Total Protein 7.5 Albumin 4.2 Globulin 3.30 H Albumin/Globulin 1.27 Ratio Triglycerides Level 118 Cholesterol Level 124 LDL Cholesterol, 66 Calculated HDL Cholesterol 34 Cholesterol/HDL 3.6 Ratio Thyroid Stimulating 4.250 Hormone (TSH) Creatine Kinase 54 Creatine Kinase 1.2 Index Creatinine Kinase MB 0.65 (Mass) Bedside Glucose 173 Test 01/20/19 06:00 01/20/19 07:46 01/20/19 11:49 01/20/19 16:16 Creatine Kinase 54 Creatine Kinase 1.0 Index Creatinine Kinase MB 0.55 (Mass) Troponin I < 0.012 Bedside Glucose 171 170 200 Subjective 24 Hr Interval Summary Constitutional: disoriented Exam/Review of Systems Exam Vitals Vital Signs Date Temp Pulse Resp B/P (MAP) Pulse Ox O2 O2 Flow FiO2 Time Delivery Rate 01/20/19 15.0 100 17:15 01/20/19 94 16:50 01/20/19 98.0 18 116/55 95 Room Air 15:06 (75) Constitutional: No alert Respiratory: clear to auscultation Gastrointestinal: soft; No distended Musculoskeletal: nl extremities to inspection Results Results 24hrs Laboratory Tests Test 01/19/19 19:25 01/20/19 03:36 01/20/19 03:37 01/20/19 04:19 White Blood Count 6.0 # 5.2 Red Blood Count 4.89 # 4.58 Hemoglobin 14.5 # 13.8 Hematocrit 42.5 # 39.9 Mean Corpuscular 86.9 87.1 Volume Mean Corpuscular 29.7 30.1 Hemoglobin Mean Corpuscular 34.1 34.6 Hemoglobin Concent Red Cell 12.6 12.8 Distribution Width Platelet Count 178 # 141 # Mean Platelet Volume 11.0 H 11.3 H Immature 0.500 H 0.400 Granulocytes % Neutrophils % 85.1 H 77.6 H Lymphocytes % 7.3 L 13.0 L Monocytes % 6.5 8.0 Eosinophils % 0.3 0.4 Basophils % 0.3 0.6 Nucleated Red Blood 0.0 0.0 Cells % Immature 0.030 0.020 Granulocytes # Neutrophils # 5.1 4.1 Lymphocytes # 0.4 L 0.7 L Monocytes # 0.4 0.4 Eosinophils # 0.0 0.0 Basophils # 0.0 0.0 Nucleated Red Blood 0.0 0.0 Cells # Prothrombin Time 13.0 Prothrombin Time 1.0 Ratio INR International 0.97 Normalized Ratio Activated 27.5 Partial Thromboplast Time Sodium Level 139 139 Potassium Level 3.2 L 3.1 L Chloride Level 93 L 96 L Carbon Dioxide Level 34 H 32 H Anion Gap 12 11 Blood Urea Nitrogen 26 H 22 H Creatinine 0.85 0.82 Est Glomerular Filtrat Rate mL/min Glucose Level 217 159 Calcium Level 10.3 H 9.5 Troponin I < 0.012 < 0.012 Hemoglobin A1c 6.6 H Magnesium Level 1.8 Total Bilirubin 2.9 H Direct Bilirubin 1.60 H Indirect Bilirubin 1.3 H Aspartate Amino 1176 H Transf (AST/SGOT) Alanine 878 H Aminotransferase (AL T/SGPT) Alkaline Phosphatase 304 H Total Protein 7.5 Albumin 4.2 Globulin 3.30 H Albumin/Globulin 1.27 Ratio Triglycerides Level 118 Cholesterol Level 124 LDL Cholesterol, 66 Calculated HDL Cholesterol 34 Cholesterol/HDL 3.6 Ratio Thyroid Stimulating 4.250 Hormone (TSH) Creatine Kinase 54 Creatine Kinase 1.2 Index Creatinine Kinase MB 0.65 (Mass) Bedside Glucose 173 Test 01/20/19 06:00 01/20/19 07:46 01/20/19 11:49 01/20/19 16:16 Creatine Kinase 54 Creatine Kinase 1.0 Index Creatinine Kinase MB 0.55 (Mass) Troponin I < 0.012 Bedside Glucose 171 170 200 Medications Medication Current Medications Ondansetron HCl (Zofran Inj) 4 mg ER BRIDGE PRN IV NAUSEA/VOMITING; Start 01/19/19 at 21:00; Stop 01/20/19 at 20:59 Acetaminophen (Tylenol Tab) 650 mg ER BRIDGE PRN PO .MILD PAIN 1-3 OR TEMP; Start 01/19/19 at 21:00; Stop 01/20/19 at 20:59 IV Flush (NS 3 ml) 3 ml PER PROTOCOL IV ; Start 01/19/19 at 23:30 Ondansetron HCl (Zofran Inj) 4 mg Q6H PRN IV NAUSEA/VOMITING Last administered on 01/20/19at 10:35; Admin Dose 4 MG; Start 01/19/19 at 23:30 Aspirin (Aspirin) 81 mg DAILY PO Last administered on 01/20/19at 08:14; Admin Dose 81 MG; Start 01/20/19 at 09:00 Nitroglycerin (Nitroglycerin (Sl Tab) 0.4 Mg) 1 tab Q5M PRN SL .CHEST PAIN; Start 01/19/19 at 23:30 Acetaminophen (Tylenol Tab) 650 mg Q6H PRN PO .PAIN 1-3 OR TEMP; Start 01/19/19 at 23:30 Heparin Sodium (Porcine) (Heparin (5000 Units/1ml)) 5,000 unit Q12 SC Last administered on 01/20/19at 08:15; Admin Dose 5,000 UNIT; Start 01/20/19 at 09:00 Albuterol/ Ipratropium (Duoneb) 3 ml Q2H RESP THERAPY PRN HHN SHORTNESS OF BREATH; Start 01/19/19 at 23:30 Diagnostic Test (Pha) (Accu-Chek) 1 ea 02 XX ; Start 01/20/19 at 02:00 Insulin Glargine (Lantus) 11 units DAILY@2000 SC ; Start 01/19/19 at 23:30 Insulin Aspart (Novolog Insulin Pen) NOVOLOG *MILD* ALGORITHM WITH MEALS BEDTIME SC ; Start 01/20/19 at 07:55 Atenolol (Tenormin) 25 mg DAILY PO Last administered on 01/20/19at 08:15; Admin Dose 25 MG; Start 01/20/19 at 09:00 Docusate Sodium (Colace) 100 mg TID PO Last administered on 01/20/19at 08:14; Admin Dose 100 MG; Start 01/20/19 at 09:00 Furosemide (Lasix) 20 mg DAILY PO Last administered on 01/20/19at 08:15; Admin Dose 20 MG; Start 01/20/19 at 09:00 Metformin HCl (Glucophage) 1,000 mg WITH BREAKFAST PO Last administered on 01/20/19at 08:13; Admin Dose 1,000 MG; Start 01/20/19 at 07:55 Miscellaneous Information 1 ea NOTE XX ; Start 01/20/19 at 02:30 Glucose (Glutose) 15 gm Q15M PRN PO DECREASED GLUCOSE; Start 01/20/19 at 02:30 Glucose (Glutose) 22.5 gm Q15M PRN PO DECREASED GLUCOSE; Start 01/20/19 at 02:30 Dextrose (D50w Syringe) 25 ml Q15M PRN IV DECREASED GLUCOSE; Start 01/20/19 at 02:30 Dextrose (D50w Syringe) 50 ml Q15M PRN IV DECREASED GLUCOSE; Start 01/20/19 at 02:30 Glucagon (Glucagen) 1 mg Q15M PRN IM DECREASED GLUCOSE; Start 01/20/19 at 02:30 Glucose (Glutose) 15 gm Q15M PRN BUCCAL DECREASED GLUCOSE; Start 01/20/19 at 02:30 ELIAS MONTGOMERY January 20, 2019 17:46
--- NOTE | 2019-01-20 17:47 | STROKE ---
Date/Time of Note Date/Time of Note DATE: 01/20/19 TIME: 17:46 Patient Information General Patient location: inpatient Arrival Date Age 73 Gender female Weight 75.8 kg POC Glucose Glucose Result Bedside Glucose - 72 Hours Test 01/20/19 04:19 01/20/19 07:46 01/20/19 11:49 01/20/19 16:16 Bedside 173 171 170 200 Glucose mg/dL (70-220) mg/dL (70-220) mg/dL (70-220) mg/dL (70-220) Vital Signs Vital Signs Vital Signs Date Temp Pulse Resp B/P (MAP) Pulse Ox O2 O2 Flow FiO2 Time Delivery Rate 01/20/19 15.0 100 17:15 01/20/19 94 16:50 01/20/19 98.0 18 116/55 95 Room Air 15:06 (75) Patient History Current Medications Allergies: Coded Allergies: No Known Allergy (Unverified , 12/18/16) Labs Coagulation Labs: Coagulation Test 01/19/19 19:25 Activated Partial Thromboplast Time 27.5 Sec (23.0-35.0) History & Physical History of Present Illness 73 F with admission for chest and abdominal pain LKW uncertain with acute confusion and lethargy in the setting of new fever, atrial fibrillation and hypoxia. NCHCT negative for acute pathology per formal read. Improved on supplemental O2 in ICU. NIH Stroke Scale NIH Stroke Scale [id number] Total Score: [id number] Date/Time Recorded DATE: 01/20/19 TIME: 17:46 Submitted By Kal Crawford t-PA Imaging Review Date/Time Imaging Reviewed DATE: 01/20/19 TIME: 17:46 t-PA Administration Recommendation: No Weight 75.8 kg Recommedation submitted by Kal Crawford Reason t-PA not Recommended Non-disabling deficit, not stroke Recommendations Impression Diagnosis 73 F with event of decreased level of arousal in the setting of new A Fib, fever, and hypoxia. Now better on supplemental O2 in ICU. No reported focal deficits. No focal deficits now other than mild hemianesthesia that may be subjective. Not tPA candidate as mild, non-disabling deficit. Event most concerning for metabolic derangement causing encephalopathy, with fever and hypoxia most evident causes. Recommendation - Low suspicion for stroke but can be further ruled-out as cause of mild sensory abnormality with MRI Brain - Best stroke prevention prison in setting of A Fib would be NOAC, but should be discussed with local PCP and Neurology prior to initiation - Consult local Neurology to guide further recs KAL CRAWFORD MD January 20, 2019 17:47
[2019-01-20] MEDS ORDERED: PIPER-TAZO 3.375 GM IV (PMX) 100 ML IVPB SCH (18:00)
[2019-01-20] MEDS: PIPER-TAZO 2.25 GM/NS 50 ML IVPB SCH ×2 (18:30→23:22)
[2019-01-20] MEDS ORDERED: ACETAMINOPHEN 650 MG SUPP PR PRN (19:00)
[2019-01-20] MEDS ORDERED: MAGNESIUM SULFATE 2 GM/50 ML 50 ML IVPB ONE (19:00)
[2019-01-20] MEDS ORDERED: SOD CHLORIDE 0.9% 1,000 ML IV ONE ×2 (19:30→23:00)
[2019-01-20] MEDS: NS + KCL 20 MEQ 1,000 ML IV SCH (21:10)
[2019-01-20] MEDS: INSULIN GLARGINE [LANTus] (100 UNITS/ML) SYG SC SCH (21:36)
[2019-01-20] MEDS: POTASSIUM CHLORIDE 100 ML IVPB SCH ×2 (22:25→23:22)
[2019-01-21] VITALS (77 sets, daily range): BP systolic 74–129; BP diastolic 35–86; PULSE 51–65; RESP 14–21
[2019-01-21] MEDS ORDERED: SOD CHLORIDE 0.9% 500 ML IV ONE (00:30)
[2019-01-21] MEDS ORDERED: NORepinephrine 8MG/250 ML (PMX 250 ML IV SCH (00:30)
[2019-01-21] MEDS: ACCU-CHEK XX SCH (02:00)
[2019-01-21] MEDS: PIPER-TAZO 2.25 GM/NS 50 ML IVPB SCH ×4 (05:36→23:39)
[2019-01-21] MEDS: INSULIN ASPART [NOVOLOG] 3 ML PEN SC SCH ×4 (07:35→20:19)
[2019-01-21] MEDS: ATENOLOL 25 MG TAB PO SCH (09:00)
--- NOTE | 2019-01-21 09:18 | CONS ---
Assessment/Plan Assessment/Plan Hospital Course (Demo Recall) 1. Possible cholecystitis -iv abx -judicious ivf -npo -HIDA Thank you, Late entry 01/20 Consultation Date/Type/Reason Admit Date/Time Date of Consultation: January 20, 2019 Date/Time of Note DATE: 01/20/19 TIME: 20:17 Past Medical History Medical History: other (See HPI) Home Meds Active Scripts Docusate Sodium* (Colace*) 100 Mg Capsule, 100 MG PO TID for CONSTIPATION, #30 CAP Prov:MIN NEWTON MD 12/18/16 Furosemide* (Lasix*) 20 Mg Tablet, 20 MG PO DAILY, #10 TAB Prov:MIN NEWTON MD 12/18/16 Reported Medications Chlorthalidone* (Chlorthalidone*) 25 Mg Tablet, 25 MG PO DAILY for 90 Days 01/20/19 Ibuprofen* (Ibuprofen*) 800 Mg Tablet, 800 MG PO Q6H PRN for PAIN LEVEL 7-10 for 30 Days, #90 01/20/19 Metformin Hcl* (Metformin Hcl*) 1,000 Mg Tablet, 1000 MG PO WITH BREAKFAST, #30 TAB 12/18/16 Atenolol* (Atenolol*) 25 Mg Tablet, 25 MG PO DAILY, #30 TAB 12/18/16 Discontinued Scripts Ibuprofen* (Motrin*) 600 Mg Tab, 600 MG PO Q8 for PAIN AND/OR INFLAMMATION, #30 TAB Prov:MIN NEWTON MD 12/18/16 Medications Current Medications IV Flush (NS 3 ml) 3 ml PER PROTOCOL IV ; Start 01/19/19 at 23:30 Ondansetron HCl (Zofran Inj) 4 mg Q6H PRN IV NAUSEA/VOMITING Last administered on 01/20/19at 10:35; Admin Dose 4 MG; Start 01/19/19 at 23:30 Aspirin (Aspirin) 81 mg DAILY PO Last administered on 01/20/19at 08:14; Admin Dose 81 MG; Start 01/20/19 at 09:00 Nitroglycerin (Nitroglycerin (Sl Tab) 0.4 Mg) 1 tab Q5M PRN SL .CHEST PAIN; Start 01/19/19 at 23:30 Acetaminophen (Tylenol Tab) 650 mg Q6H PRN PO .PAIN 1-3 OR TEMP; Start 01/19/19 at 23:30 Heparin Sodium (Porcine) (Heparin (5000 Units/1ml)) 5,000 unit Q12 SC Last administered on 01/20/19at 20:59; Admin Dose 5,000 UNIT; Start 01/20/19 at 09:00 Albuterol/ Ipratropium (Duoneb) 3 ml Q2H RESP THERAPY PRN HHN SHORTNESS OF CINDY ATH; Start 01/19/19 at 23:30 Diagnostic Test (Pha) (Accu-Chek) 1 ea 02 XX ; Start 01/20/19 at 02:00 Insulin Glargine (Lantus) 11 units DAILY@2000 SC Last administered on 01/20/19at 21:36; Admin Dose 11 UNITS; Start 01/19/19 at 23:30 Insulin Aspart (Novolog Insulin Pen) NOVOLOG *MILD* ALGORITHM WITH MEALS BEDTIME SC ; Start 01/20/19 at 07:55 Atenolol (Tenormin) 25 mg DAILY PO Last administered on 01/20/19at 08:15; Admin Dose 25 MG; Start 01/20/19 at 09:00 Docusate Sodium (Colace) 100 mg TID PO Last administered on 01/20/19at 08:14; Admin Dose 100 MG; Start 01/20/19 at 09:00 Furosemide (Lasix) 20 mg DAILY PO Last administered on 01/20/19at 08:15; Admin Dose 20 MG; Start 01/20/19 at 09:00 Metformin HCl (Glucophage) 1,000 mg WITH BREAKFAST PO Last administered on 01/20/19at 08:13; Admin Dose 1,000 MG; Start 01/20/19 at 07:55 Miscellaneous Information 1 ea NOTE XX ; Start 01/20/19 at 02:30 Glucose (Glutose) 15 gm Q15M PRN PO DECREASED GLUCOSE; Start 01/20/19 at 02:30 Glucose (Glutose) 22.5 gm Q15M PRN PO DECREASED GLUCOSE; Start 01/20/19 at 02:30 Dextrose (D50w Syringe) 25 ml Q15M PRN IV DECREASED GLUCOSE; Start 01/20/19 at 02:30 Dextrose (D50w Syringe) 50 ml Q15M PRN IV DECREASED GLUCOSE; Start 01/20/19 at 02:30 Glucagon (Glucagen) 1 mg Q15M PRN IM DECREASED GLUCOSE; Start 01/20/19 at 02:30 Glucose (Glutose) 15 gm Q15M PRN BUCCAL DECREASED GLUCOSE; Start 01/20/19 at 02:30 Piperacillin Sod/ Tazobactam Sod 50 ml @ 100 mls/hr Q6 IVPB Last administered on 01/21/19at 05:36; Admin Dose 100 MLS/HR; Start 01/20/19 at 18:00 Acetaminophen (Tylenol Supp) 650 mg Q6H PRN [place] ELEVATED TEMPERATURE Last administered on 01/20/19at 19:08; Admin Dose 650 MG; Start 01/20/19 at 19:00 Potassium Chloride/Sodium Chloride 1,000 ml @ 100 mls/hr Q10H IV Last administered on 01/20/19at 21:10; Admin Dose 100 MLS/HR; Start 01/20/19 at 20:00 Norepinephrine 250 ml @ 1.875 mls/ hr TITRATE IV Last administered on 01/21/19at 01:45; Admin Dose 1.875 MLS/HR; Start 01/21/19 at 00:30 Allergies: Coded Allergies: No Known Allergy (Unverified , 12/18/16) Past Surgical History Past Surgical Hx: other (See HPI) Social History Alcohol Use: none Smoking Status: Never smoker Drug Use: none Exam/Review of Systems Exam Vitals Vital Signs Date Temp Pulse Resp B/P (MAP) Pulse Ox O2 O2 Flow FiO2 Time Delivery Rate 01/21/19 59 16 88/35 (52) 95 Room Air 06:00 01/21/19 98.0 04:00 01/21/19 2.0 02:00 01/21/19 33 01:48 Intake and Output 01/20/19 01/20/19 01/21/19 1515:00 23:00 07:00 IntakeIntake Total 710 ml 926.75 ml OutputOutput Total 120 ml 95 ml BalanceBalance 590 ml 831.75 ml Results Result Diagram: 01/21/19 0452 01/21/19 0452 Results 24hrs Laboratory Tests Test 01/20/19 11:49 01/20/19 16:16 01/20/19 18:17 01/20/19 19:00 Bedside Glucose 170 200 196 Urine Color RONNIE Urine Clarity CLEAR Urine pH 7.0 Urine Specific 1.016 [place] Urine Ketones NEGATIVE Urine Nitrite NEGATIVE Urine Bilirubin 1+ H Urine Urobilinogen 2+ H Urine Leukocyte NEGATIVE Esterase Urine Microscopic 4 RBC Urine Microscopic 5 WBC Urine Hemoglobin 1+ H Urine Glucose NEGATIVE Urine Total Protein 2+ H Test 01/20/19 20:07 01/20/19 20:48 01/21/19 04:52 01/21/19 08:22 White Blood Count 15.7 #H 19.0 #H Red Blood Count 4.29 4.13 L Hemoglobin 12.9 12.4 Hematocrit 37.8 36.8 L Mean Corpuscular 88.1 89.1 Volume Mean Corpuscular 30.1 30.0 Hemoglobin Mean Corpuscular 34.1 33.7 Hemoglobin Concent Red Cell 13.0 13.4 Distribution Width Platelet Count 126 L 107 L Mean Platelet Volume 11.4 H 11.7 H Immature 0.900 H 3.700 H Granulocytes % Neutrophils % Segmented 76 Neutrophils % (Manual) Band Neutrophils % 17 H (Manual) Lymphocytes % Lymphocytes % 4 L (Manual) Monocytes % Monocytes % (Manual) 2 Eosinophils % Basophils % Metamyelocytes % 1 H (manual) Nucleated Red Blood 0.0 0.0 Cells % Immature 0.140 H 0.710 H Granulocytes # Neutrophils # Neutrophils # 12.3 H (Manual) Band Neutrophils # 2.6 H Lymphocytes (Manual) 0.6 L Lymphocytes # Monocytes # Monocytes # (Manual) 0.3 Eosinophils # Basophils # Metamyelocytes # 0.1 H Nucleated Red Blood Cells # Platelet Estimate NORMAL Giant Platelets 5 H Anisocytosis 1+ Microcytosis 1+ Sodium Level 137 141 Potassium Level 2.9 *L 3.8 Chloride Level 98 106 Carbon Dioxide Level 26 22 Anion Gap 13 13 Blood Urea Nitrogen 24 H 28 H Creatinine 1.85 #H 2.49 H Est Glomerular Filtrat Rate mL/min Glucose Level 160 125 Calcium Level 8.9 8.2 L Total Bilirubin 4.9 #H Direct Bilirubin 3.80 #H Indirect Bilirubin 1.1 Aspartate Amino 463 H Transf (AST/SGOT) Alanine 536 H Aminotransferase (AL T/SGPT) Alkaline Phosphatase 277 H Total Protein 6.8 Albumin 3.6 Globulin 3.20 Albumin/Globulin 1.12 Ratio Bedside Glucose 138 121 Medications Medication Current Medications IV Flush (NS 3 ml) 3 ml PER PROTOCOL IV ; Start 01/19/19 at 23:30 Ondansetron HCl (Zofran Inj) 4 mg Q6H PRN IV NAUSEA/VOMITING Last administered on 01/20/19 10:35; Admin Dose 4 MG; Start 01/19/19 at 23:30 Aspirin (Aspirin) 81 mg DAILY PO Last administered on 01/20/19 08:14; Admin Dose 81 MG; Start 01/20/19 at 09:00 Nitroglycerin (Nitroglycerin (Sl Tab) 0.4 Mg) 1 tab Q5M PRN SL .CHEST PAIN; Start 01/19/19 at 23:30 Acetaminophen (Tylenol Tab) 650 mg Q6H PRN PO .PAIN 1-3 OR TEMP; Start 01/19/19 at 23:30 Heparin Sodium (Porcine) (Heparin (5000 Units/1ml)) 5,000 unit Q12 SC Last adm inistered on 01/20/19at 20:59; Admin Dose 5,000 UNIT; Start 01/20/19 at 09:00 Albuterol/ Ipratropium (Duoneb) 3 ml Q2H RESP THERAPY PRN HHN SHORTNESS OF BREATH; Start 01/19/19 at 23:30 Diagnostic Test (Pha) (Accu-Chek) 1 ea 02 XX ; Start 01/20/19 at 02:00 Insulin Glargine (Lantus) 11 units DAILY@2000 SC Last administered on 01/20/19 21:36; Admin Dose 11 UNITS; Start 01/19/19 at 23:30 Insulin Aspart (Novolog Insulin Pen) NOVOLOG *MILD* ALGORITHM WITH MEALS BEDTIME SC ; Start 01/20/19 at 07:55 Atenolol (Tenormin) 25 mg DAILY PO Last administered on 01/20/19 08:15; Admin Dose 25 MG; Start 01/20/19 at 09:00 Docusate Sodium (Colace) 100 mg TID PO Last administered on 01/20/19 08:14; Admin Dose 100 MG; Start 01/20/19 at 09:00 Furosemide (Lasix) 20 mg DAILY PO Last administered on 01/20/19 08:15; Admin Dose 20 MG; Start 01/20/19 at 09:00 Metformin HCl (Glucophage) 1,000 mg WITH BREAKFAST PO Last administered on 01/20/19 08:13; Admin Dose 1,000 MG; Start 01/20/19 at 07:55 Miscellaneous Information 1 ea NOTE XX ; Start 01/20/19 at 02:30 Glucose (Glutose) 15 gm Q15M PRN PO DECREASED GLUCOSE; Start 01/20/19 at 02:30 Glucose (Glutose) 22.5 gm Q15M PRN PO DECREASED GLUCOSE; Start 01/20/19 at 02:30 Dextrose (D50w Syringe) 25 ml Q15M PRN IV DECREASED GLUCOSE; Start 01/20/19 at 02:30 Dextrose (D50w Syringe) 50 ml Q15M PRN IV DECREASED GLUCOSE; Start 01/20/19 at 02:30 Glucagon (Glucagen) 1 mg Q15M PRN IM DECREASED GLUCOSE; Start 01/20/19 at 02:30 Glucose (Glutose) 15 gm Q15M PRN BUCCAL DECREASED GLUCOSE; Start 01/20/19 at 02:30 Piperacillin Sod/ Tazobactam Sod 50 ml @ 100 mls/hr Q6 IVPB Last administered on 01/21/19at 05:36; Admin Dose 100 MLS/HR; Start 01/20/19 at 18:00 Acetaminophen (Tylenol Supp) 650 mg Q6H PRN [place] ELEVATED TEMPERATURE Last administered on 01/20/19at 19:08; Admin Dose 650 MG; Start 01/20/19 at 19:00 Potassium Chloride/Sodium Chloride 1,000 ml @ 100 mls/hr Q10H IV Last administered on 01/20/19at 21:10; Admin Dose 100 MLS/HR; Start 01/20/19 at 20:00 Norepinephrine 250 ml @ 1.875 mls/ hr TITRATE IV Last administered on 01/21/19at 01:45; Admin Dose 1.875 MLS/HR; Start 01/21/19 at 00:30 LALITHA HERMAN MD January 21, 2019 09:18
[2019-01-21] MEDS: HEPARIN 5,000 UNIT/1 ML VIAL SC SCH ×2 (09:47→21:22)
[2019-01-21] MEDS: FUROSEMIDE 20 MG TAB PO SCH (09:50)
[2019-01-21] MEDS: ASPIRIN 81 MG TAB PO SCH (09:50)
[2019-01-21] MEDS: DOCUSATE SODIUM 100 MG CAP PO SCH ×3 (09:50→20:39)
[2019-01-21] MEDS: metFORMIN 500 MG TAB PO SCH (09:57)
[2019-01-21] MEDS: NS + KCL 20 MEQ 1,000 ML IV SCH ×3 (11:04→21:20)
--- NOTE | 2019-01-21 11:21 | PN ---
Date/Time of Note Date/Time of Note DATE: 01/21/19 TIME: 11:14 Assessment/Plan VTE Prophylaxis Risk score (from Ns)>0 risk: 7 SCD applied (from Ns): Yes Pharmacological prophylaxis: heparin Lines/Catheters IV Catheter Type (from Nrsg): Peripheral IV Assessment/Plan Hospital Course 1. Acute encephalopathy-resolved Patient went into A. fib and was subsequently noted to be altered, code stroke has been called, CT head is currently negative and patient is now back to baseline Telemetry neurology consultation appreciated, no indication for TPA, recommendation is for MRI of the head Patient likely had a TIA during the A. fib event No reported history of A. fib and the patient presented in sinus rhythm, patient now back in sinus rhythm as of last night, consider anticoagulation for stroke prevention Patient with evidence of sepsis with fever and leukocytosis, follow-up on blood and urine cultures Zosyn IV Carotid ultrasound shows no significant stenosis Follow-up on echo 2. Abdominal pain possibly secondary to acute cholecystitis CT abdomen shows likely acute cholecystitis Ultrasound of the abdomen shows cholelithiasis but no cholecystitis Follow-up on HIDA Zosyn IV Surgery consultation appreciated 3. Chest pain No evidence of ACS Follow-up echo Cardiology consultation obtained 4. Sepsis possibly secondary to cholecystitis Patient with fevers and leukocytosis, follow-up on cultures UA and chest x-ray showed no evidence of infection Continue Zosyn 5. Hypertension Adjust antihypertensive as needed 6. Type 2 diabetes A1c at 6.6 Sliding scale 7. Paroxysmal A. fib Patient presented in sinus and was only in A. fib for several hours before spontaneously converting back to sinus Patient has no known history of A. fib Cardiology consultation obtained, defer need for anticoagulation to cardiology 8. History of ovarian cancer: Status post surgery Prophylaxis: Heparin DC planning: Continue antibiotics, follow-up on cultures, follow-up on HIDA and surgery recommendations, follow-up with cardiology recommendations Result Diagram: 01/21/19 0452 01/21/19 0452 Results 24hrs Laboratory Tests Test 01/20/19 11:49 01/20/19 16:16 01/20/19 18:17 01/20/19 19:00 Bedside Glucose 170 200 196 Urine Color RONNIE Urine Clarity CLEAR Urine pH 7.0 Urine Specific 1.016 [place] Urine Ketones NEGATIVE Urine Nitrite NEGATIVE Urine Bilirubin 1+ H Urine Urobilinogen 2+ H Urine Leukocyte NEGATIVE Esterase Urine Microscopic 4 RBC Urine Microscopic 5 WBC Urine Hemoglobin 1+ H Urine Glucose NEGATIVE Urine Total Protein 2+ H Test 01/20/19 20:07 01/20/19 20:48 01/21/19 04:52 01/21/19 08:22 White Blood Count 15.7 #H 19.0 #H Red Blood Count 4.29 4.13 L Hemoglobin 12.9 12.4 Hematocrit 37.8 36.8 L Mean Corpuscular 88.1 89.1 Volume Mean Corpuscular 30.1 30.0 Hemoglobin Mean Corpuscular 34.1 33.7 Hemoglobin Concent Red Cell 13.0 13.4 Distribution Width Platelet Count 126 L 107 L Mean Platelet Volume 11.4 H 11.7 H Immature 0.900 H 3.700 H Granulocytes % Neutrophils % Segmented 76 49 Neutrophils % (Manual) Band Neutrophils % 17 H 40 H (Manual) Lymphocytes % Lymphocytes % 4 L 4 L (Manual) Monocytes % Monocytes % (Manual) 2 4 Eosinophils % Basophils % Metamyelocytes % 1 H 2 H (manual) Nucleated Red Blood 0.0 0.0 Cells % Immature 0.140 H 0.710 H Granulocytes # Neutrophils # Neutrophils # 12.3 H 10.8 H (Manual) Band Neutrophils # 2.6 H 7.6 H Lymphocytes (Manual) 0.6 L 0.7 L Lymphocytes # Monocytes # Monocytes # (Manual) 0.3 0.7 Eosinophils # Basophils # Metamyelocytes # 0.1 H 0.3 H Nucleated Red Blood Cells # Platelet Estimate NORMAL DECREASED Giant Platelets 5 H Anisocytosis 1+ 1+ Microcytosis 1+ Sodium Level 137 141 Potassium Level 2.9 *L 3.8 Chloride Level 98 106 Carbon Dioxide Level 26 22 Anion Gap 13 13 Blood Urea Nitrogen 24 H 28 H Creatinine 1.85 #H 2.49 H Est Glomerular Filtrat Rate mL/min Glucose Level 160 125 Calcium Level 8.9 8.2 L Total Bilirubin 4.9 #H Direct Bilirubin 3.80 #H Indirect Bilirubin 1.1 Aspartate Amino 463 H Transf (AST/SGOT) Alanine 536 H Aminotransferase (AL T/SGPT) Alkaline Phosphatase 277 H Total Protein 6.8 Albumin 3.6 Globulin 3.20 Albumin/Globulin 1.12 Ratio Bedside Glucose 138 121 Myelocytes % 1 H (Manual) Myelocytes # 0.1 H Test 01/21/19 09:56 Bedside Glucose 192 Subjective 24 Hr Interval Summary Constitutional: no complaints Exam/Review of Systems Exam Vitals Vital Signs Date Temp Pulse Resp B/P (MAP) Pulse Ox O2 O2 Flow FiO2 Time Delivery Rate 01/21/19 52 16 108/52 96 08:45 (70) 01/21/19 Room Air 08:00 01/21/19 98.0 04:00 01/21/19 2.0 02:00 01/21/19 33 01:48 Intake and Output 01/20/19 01/20/19 01/21/19 1515:00 23:00 07:00 IntakeIntake Total 710 ml 1026.75 ml OutputOutput Total 120 ml 95 ml BalanceBalance 590 ml 931.75 ml Constitutional: alert, oriented Respiratory: clear to auscultation Cardiovascular: regular rate and rhythm Gastrointestinal: soft; No distended Musculoskeletal: nl extremities to inspection Results Results 24hrs Laboratory Tests Test 01/20/19 11:49 01/20/19 16:16 01/20/19 18:17 01/20/19 19:00 Bedside Glucose 170 200 196 Urine Color RONNIE Urine Clarity CLEAR Urine pH 7.0 Urine Specific 1.016 [place] Urine Ketones NEGATIVE Urine Nitrite NEGATIVE Urine Bilirubin 1+ H Urine Urobilinogen 2+ H Urine Leukocyte NEGATIVE Esterase Urine Microscopic 4 RBC Urine Microscopic 5 WBC Urine Hemoglobin 1+ H Urine Glucose NEGATIVE Urine Total Protein 2+ H Test 01/20/19 20:07 01/20/19 20:48 01/21/19 04:52 01/21/19 08:22 White Blood Count 15.7 #H 19.0 #H Red Blood Count 4.29 4.13 L Hemoglobin 12.9 12.4 Hematocrit 37.8 36.8 L Mean Corpuscular 88.1 89.1 Volume Mean Corpuscular 30.1 30.0 Hemoglobin Mean Corpuscular 34.1 33.7 Hemoglobin Concent Red Cell 13.0 13.4 Distribution Width Platelet Count 126 L 107 L Mean Platelet Volume 11.4 H 11.7 H Immature 0.900 H 3.700 H Granulocytes % Neutrophils % Segmented 76 49 Neutrophils % (Manual) Band Neutrophils % 17 H 40 H (Manual) Lymphocytes % Lymphocytes % 4 L 4 L (Manual) Monocytes % Monocytes % (Manual) 2 4 Eosinophils % Basophils % Metamyelocytes % 1 H 2 H (manual) Nucleated Red Blood 0.0 0.0 Cells % Immature 0.140 H 0.710 H Granulocytes # Neutrophils # Neutrophils # 12.3 H 10.8 H (Manual) Band Neutrophils # 2.6 H 7.6 H Lymphocytes (Manual) 0.6 L 0.7 L Lymphocytes # Monocytes # Monocytes # (Manual) 0.3 0.7 Eosinophils # Basophils # Metamyelocytes # 0.1 H 0.3 H Nucleated Red Blood Cells # Platelet Estimate NORMAL DECREASED Giant Platelets 5 H Anisocytosis 1+ 1+ Microcytosis 1+ Sodium Level 137 141 Potassium Level 2.9 *L 3.8 Chloride Level 98 106 Carbon Dioxide Level 26 22 Anion Gap 13 13 Blood Urea Nitrogen 24 H 28 H Creatinine 1.85 #H 2.49 H Est Glomerular Filtrat Rate mL/min Glucose Level 160 125 Calcium Level 8.9 8.2 L Total Bilirubin 4.9 #H Direct Bilirubin 3.80 #H Indirect Bilirubin 1.1 Aspartate Amino 463 H Transf (AST/SGOT) Alanine 536 H Aminotransferase (AL T/SGPT) Alkaline Phosphatase 277 H Total Protein 6.8 Albumin 3.6 Globulin 3.20 Albumin/Globulin 1.12 Ratio Bedside Glucose 138 121 Myelocytes % 1 H (Manual) Myelocytes # 0.1 H Test 01/21/19 09:56 Bedside Glucose 192 Medications Medication Current Medications IV Flush (NS 3 ml) 3 ml PER PROTOCOL IV ; Start 01/19/19 at 23:30 Ondansetron HCl (Zofran Inj) 4 mg Q6H PRN IV NAUSEA/VOMITING Last administered on 01/20/19at 10:35; Admin Dose 4 MG; Start 01/19/19 at 23:30 Aspirin (Aspirin) 81 mg DAILY PO Last administered on 01/21/19at 09:50; Admin Dose 81 MG; Start 01/20/19 at 09:00 Nitroglycerin (Nitroglycerin (Sl Tab) 0.4 Mg) 1 tab Q5M PRN SL .CHEST PAIN; Start 01/19/19 at 23:30 Acetaminophen (Tylenol Tab) 650 mg Q6H PRN PO .PAIN 1-3 OR TEMP; Start 01/19/19 at 23:30 Heparin Sodium (Porcine) (Heparin (5000 Units/1ml)) 5,000 unit Q12 SC Last administered on 01/21/19at 09:47; Admin Dose 5,000 UNIT; Start 01/20/19 at 09:00 Albuterol/ Ipratropium (Duoneb) 3 ml Q2H RESP THERAPY PRN HHN SHORTNESS OF BREATH; Start 01/19/19 at 23:30 Diagnostic Test (Pha) (Accu-Chek) 1 ea 02 XX ; Start 01/20/19 at 02:00 Insulin Glargine (Lantus) 11 units DAILY@2000 SC Last administered on 01/20/19at 21:36; Admin Dose 11 UNITS; Start 01/19/19 at 23:30 Insulin Aspart (Novolog Insulin Pen) NOVOLOG *MILD* ALGORITHM WITH MEALS BEDTIME SC ; Start 01/20/19 at 07:55 Atenolol (Tenormin) 25 mg DAILY PO Last administered on 01/20/19at 08:15; Admin Dose 25 MG; Start 01/20/19 at 09:00 Docusate Sodium (Colace) 100 mg TID PO Last administered on 01/21/19at 09:50; Ad min Dose 100 MG; Start 01/20/19 at 09:00 Furosemide (Lasix) 20 mg DAILY PO Last administered on 01/21/19at 09:50; Admin Dose 20 MG; Start 01/20/19 at 09:00 Metformin HCl (Glucophage) 1,000 mg WITH BREAKFAST PO Last administered on 01/21/19at 09:57; Admin Dose 1,000 MG; Start 01/20/19 at 07:55 Miscellaneous Information 1 ea NOTE XX ; Start 01/20/19 at 02:30 Glucose (Glutose) 15 gm Q15M PRN PO DECREASED GLUCOSE; Start 01/20/19 at 02:30 Glucose (Glutose) 22.5 gm Q15M PRN PO DECREASED GLUCOSE; Start 01/20/19 at 02:30 Dextrose (D50w Syringe) 25 ml Q15M PRN IV DECREASED GLUCOSE; Start 01/20/19 at 02:30 Dextrose (D50w Syringe) 50 ml Q15M PRN IV DECREASED GLUCOSE; Start 01/20/19 at 02:30 Glucagon (Glucagen) 1 mg Q15M PRN IM DECREASED GLUCOSE; Start 01/20/19 at 02:30 Glucose (Glutose) 15 gm Q15M PRN BUCCAL DECREASED GLUCOSE; Start 01/20/19 at 02:30 Piperacillin Sod/ Tazobactam Sod 50 ml @ 100 mls/hr Q6 IVPB Last administered on 01/21/19 05:36; Admin Dose 100 MLS/HR; Start 01/20/19 at 18:00 Acetaminophen (Tylenol Supp) 650 mg Q6H PRN [place] ELEVATED TEMPERATURE Last administered on 01/20/19at 19:08; Admin Dose 650 MG; Start 01/20/19 at 19:00 Potassium Chloride/Sodium Chloride 1,000 ml @ 100 mls/hr Q10H IV Last administered on 01/21/19at 11:04; Admin Dose 100 MLS/HR; Start 01/20/19 at 20:00 Norepinephrine 250 ml @ 1.875 mls/ hr TITRATE IV Last administered on 01/21/19at 01:45; Admin Dose 1.875 MLS/HR; Start 01/21/19 at 00:30 ELIAS MONTGOMERY January 21, 2019 11:20
[2019-01-21] MEDS ORDERED: INSULIN GLARGINE [LANTus] (100 UNITS/ML) SYG SC ONE (14:30)
[2019-01-21] MEDS ORDERED: LIDOCAINE 1% (MPF) 5 ML VIAL SC ONE (15:00)
--- NOTE | 2019-01-21 15:29 | CONS ---
Assessment/Plan Assessment/Plan Hospital Course (Demo Recall) 1. Chest pain appears to be on angina most likely GI related has improved now 2. Arrhythmias with episode of wide-complex tachycardia. Currently sinus bradycardia and stable 3. Shock most likely septic 4. HX DM 5. S/P TAVR 6. HX HTN: now hypotensive 7. ? CHOLECYSTITIS. 8. GASTON: REC; wean off levophed as tolerated. cont DM control f/u with surgical rec. consider renal consultations echo is pending will follow up correct lytes prn Thanks you ELE RODRIGUEZ MD Consultation Date/Type/Reason Admit Date/Time Date of Consultation: January 21, 2019 Type of Consult Cardiology Reason for Consultation Arrhythmia Requesting Provider: ELIAS MONTGOMERY Date/Time of Note DATE: 01/21/19 TIME: 15:21 Hx of Present Illness Interventional cardiology consultation note Chief complaint: Chest abdominal discomfort pain Reason for consult:Arrhythmias History of present illness: Thank you for this referral. history was informed the patient from discussion with daughter who was better historian. Patient himself is extremely poor historian. This is a pleasant 71-year-old man with diabetes hypertension dyslipidemia history of what appears to be TAVR at [facility] per daughter's report who came to emergency room with complaint. Patient complains of chest pain and abdominal pain. She shows mostly her upper abdomen diffusely was pain and tenderness. Work-up was showed possible cholecystitis. Her chest pain is completely resolved.troponin have been negative now. Patient has had hypotension and being transferred to ICU currently on Levophed drip. Patient has not had episode of arrhythmias possible atrial for ablation review of rhythm was revealed episode of wide-complex tachycardia. Has resolved now currently remains in sinus bradycardia. Allergies: No known drug allergies Medications were reviewed as per medical reconciliation sheet Family history: No history of early coronary artery disease Social history: No active smoking Past medical history: History of valvular heart disease severe aortic stenosis status post transcutaneous aortic valve replacement at [facility] most likely 2018 Diabetes hypertension dyslipidemia Review of system: Patient denies all others except for above-mentioned Past Medical History Home Meds Active Scripts Docusate Sodium* (Colace*) 100 Mg Capsule, 100 MG PO TID for CONSTIPATION, #30 CAP Prov:MIN NEWTON MD 12/18/16 Furosemide* (Lasix*) 20 Mg Tablet, 20 MG PO DAILY, #10 TAB Prov:MIN NEWTON MD 12/18/16 Reported Medications Chlorthalidone* (Chlorthalidone*) 25 Mg Tablet, 25 MG PO DAILY for 90 Days 01/20/19 Ibuprofen* (Ibuprofen*) 800 Mg Tablet, 800 MG PO Q6H PRN for PAIN LEVEL 7-10 for 30 Days, #90 01/20/19 Metformin Hcl* (Metformin Hcl*) 1,000 Mg Tablet, 1000 MG PO WITH BREAKFAST, #30 TAB 12/18/16 Atenolol* (Atenolol*) 25 Mg Tablet, 25 MG PO DAILY, #30 TAB 12/18/16 Discontinued Scripts Ibuprofen* (Motrin*) 600 Mg Tab, 600 MG PO Q8 for PAIN AND/OR INFLAMMATION, #30 TAB Prov:MIN NEWTON MD 12/18/16 Medications Current Medications IV Flush (NS 3 ml) 3 ml PER PROTOCOL IV ; Start 01/19/19 at 23:30 Ondansetron HCl (Zofran Inj) 4 mg Q6H PRN IV NAUSEA/VOMITING Last administered on 01/20/19at 10:35; Admin Dose 4 MG; Start 01/19/19 at 23:30 Aspirin (Aspirin) 81 mg DAILY PO Last administered on 01/21/19at 09:50; Admin Dose 81 MG; Start 01/20/19 at 09:00 Nitroglycerin (Nitroglycerin (Sl Tab) 0.4 Mg) 1 tab Q5M PRN SL .CHEST PAIN; Start 01/19/19 at 23:30 Acetaminophen (Tylenol Tab) 650 mg Q6H PRN PO .PAIN 1-3 OR TEMP; Start 01/19/19 at 23:30 Heparin Sodium (Porcine) (Heparin (5000 Units/1ml)) 5,000 unit Q12 SC Last administered on 01/21/19at 09:47; Admin Dose 5,000 UNIT; Start 01/20/19 at 09:00 Albuterol/ Ipratropium (Duoneb) 3 ml Q2H RESP THERAPY PRN HHN SHORTNESS OF BREATH; Start 01/19/19 at 23:30 Diagnostic Test (Pha) (Accu-Chek) 1 ea 02 XX ; Start 01/20/19 at 02:00 Insulin Aspart (Novolog Insulin Pen) NOVOLOG *MILD* ALGORITHM WITH MEALS BEDTIME SC Last administered on 01/21/19 12:54; Admin Dose 2 UNIT; Start 01/20/19 at 07:55 Atenolol (Tenormin) 25 mg DAILY PO Last administered on 01/20/19at 08:15; Admin Dose 25 MG; Start 01/20/19 at 09:00 Docusate Sodium (Colace) 100 mg TID PO Last administered on 01/21/19 09:50; Admin Dose 100 MG; Start 01/20/19 at 09:00 Furosemide (Lasix) 20 mg DAILY PO Last administered on 01/21/19 09:50; Admin Dose 20 MG; Start 01/20/19 at 09:00 Metformin HCl (Glucophage) 1,000 mg WITH BREAKFAST PO Last administered on 01/21/19 09:57; Admin Dose 1,000 MG; Start 01/20/19 at 07:55 Miscellaneous Information 1 ea NOTE XX ; Start 01/20/19 at 02:30 Glucose (Glutose) 15 gm Q15M PRN PO DECREASED GLUCOSE; Start 01/20/19 at 02:30 Glucose (Glutose) 22.5 gm Q15M PRN PO DECREASED GLUCOSE; Start 01/20/19 at 02:30 Dextrose (D50w Syringe) 25 ml Q15M PRN IV DECREASED GLUCOSE; Start 01/20/19 at 02:30 Dextrose (D50w Syringe) 50 ml Q15M PRN IV DECREASED GLUCOSE; Start 01/20/19 at 02:30 Glucagon (Glucagen) 1 mg Q15M PRN IM DECREASED GLUCOSE; Start 01/20/19 at 02:30 Glucose (Glutose) 15 gm Q15M PRN BUCCAL DECREASED GLUCOSE; Start 01/20/19 at 02:30 Piperacillin Sod/ Tazobactam Sod 50 ml @ 100 mls/hr Q6 IVPB Last administered on 01/21/19at 12:47; Admin Dose 100 MLS/HR; Start 01/20/19 at 18:00 Acetaminophen (Tylenol Supp) 650 mg Q6H PRN ND ELEVATED TEMPERATURE Last administered on 01/20/19at 19:08; Admin Dose 650 MG; Start 01/20/19 at 19:00 Potassium Chloride/Sodium Chloride 1,000 ml @ 100 mls/hr Q10H IV Last administered on 01/21/19at 11:04; Admin Dose 100 MLS/HR; Start 01/20/19 at 20:00 Norepinephrine 250 ml @ 1.875 mls/ hr TITRATE IV Last administered on 01/21/19at 01:45; Admin Dose 1.875 MLS/HR; Start 01/21/19 at 00:30 Insulin Glargine (Lantus) 15 units DAILY@2000 SC ; Start 01/21/19 at 20:00 Allergies: Coded Allergies: No Known Allergy (Unverified , 12/18/16) Past Surgical History Past Surgical Hx: other (See HPI) Social History Alcohol Use: none Smoking Status: Never smoker Drug Use: none Exam/Review of Systems Vital Signs Vitals Vital Signs Date Temp Pulse Resp B/P (MAP) Pulse Ox O2 O2 Flow FiO2 Time Delivery Rate 01/21/19 54 12:00 01/21/19 16 108/52 96 08:45 (70) 01/21/19 Room Air 08:00 01/21/19 98.0 04:00 01/21/19 2.0 02:00 01/21/19 33 01:48 Intake and Output 01/20/19 01/20/19 01/21/19 1414:59 22:59 06:59 IntakeIntake Total 610 ml 1026.75 ml OutputOutput Total 115 ml 100 ml BalanceBalance 495 ml 926.75 ml Exam Exam General: no acute distress HEENT: NC/AT. pupils are equal. round. NECK: NO JVD. no stridor. CV: bradycardic systolic murmur; no gallop or rubs. PULM: no wheezing or rhonchi. GI: SOFT, NT, ND, no rebound or guarding Extremity: trace B/L LE edema. no clubbing. neuro: awake and alert, OX3. Psych: calm and pleasant rectal: deferred EKG done on January 19 showed normal sinus rhythm nonspecific ST abnormalities. CT of the abdomen shows 1. Moderately distended gallbladder containing multiple sub centimeter gallstones with gallbladder wall thickening and surrounding inflammatory changes in keeping with acute cholecystitis. No biliary ductal dilatation. 2. Fatty liver. 3. Aortoiliac atherosclerosis without aneurysmal dilatation. 4. Transcatheter aortic valve replacement. Coronary artery vascular calcifications Labs Result Diagram: 01/21/19 0452 01/21/19 0452 Results 24hrs Laboratory Tests Test 01/20/19 16:16 01/20/19 18:17 01/20/19 19:00 01/20/19 20:07 Bedside Glucose 200 196 Urine Color RONNIE Urine Clarity CLEAR Urine pH 7.0 Urine Specific 1.016 Bruce Urine Ketones NEGATIVE Urine Nitrite NEGATIVE Urine Bilirubin 1+ H Urine Urobilinogen 2+ H Urine Leukocyte NEGATIVE Esterase Urine Microscopic 4 RBC Urine Microscopic 5 WBC Urine Hemoglobin 1+ H Urine Glucose NEGATIVE Urine Total Protein 2+ H White Blood Count 15.7 #H Red Blood Count 4.29 Hemoglobin 12.9 Hematocrit 37.8 Mean Corpuscular 88.1 Volume Mean Corpuscular 30.1 Hemoglobin Mean Corpuscular 34.1 Hemoglobin Concent Red Cell 13.0 Distribution Width Platelet Count 126 L Mean Platelet Volume 11.4 H Immature 0.900 H Granulocytes % Neutrophils % Segmented 76 Neutrophils % (Manual) Band Neutrophils % 17 H (Manual) Lymphocytes % Lymphocytes % 4 L (Manual) Monocytes % Monocytes % (Manual) 2 Eosinophils % Basophils % Metamyelocytes % 1 H (manual) Nucleated Red Blood 0.0 Cells % Immature 0.140 H Granulocytes # Neutrophils # Neutrophils # 12.3 H (Manual) Band Neutrophils # 2.6 H Lymphocytes (Manual) 0.6 L Lymphocytes # Monocytes # Monocytes # (Manual) 0.3 Eosinophils # Basophils # Metamyelocytes # 0.1 H Nucleated Red Blood Cells # Platelet Estimate NORMAL Giant Platelets 5 H Anisocytosis 1+ Microcytosis 1+ Sodium Level 137 Potassium Level 2.9 *L Chloride Level 98 Carbon Dioxide Level 26 Anion Gap 13 Blood Urea Nitrogen 24 H Creatinine 1.85 #H Est Glomerular Filtrat Rate mL/min Glucose Level 160 Calcium Level 8.9 Total Bilirubin 4.9 #H Direct Bilirubin 3.80 #H Indirect Bilirubin 1.1 Aspartate Amino 463 H Transf (AST/SGOT) Alanine 536 H Aminotransferase (AL T/SGPT) Alkaline Phosphatase 277 H Total Protein 6.8 Albumin 3.6 Globulin 3.20 Albumin/Globulin 1.12 Ratio Test 01/20/19 20:48 01/21/19 04:52 01/21/19 08:22 01/21/19 09:56 Bedside Glucose 138 121 192 White Blood Count 19.0 #H Red Blood Count 4.13 L Hemoglobin 12.4 Hematocrit 36.8 L Mean Corpuscular 89.1 Volume Mean Corpuscular 30.0 Hemoglobin Mean Corpuscular 33.7 Hemoglobin Concent Red Cell 13.4 Distribution Width Platelet Count 107 L Mean Platelet Volume 11.7 H Immature 3.700 H Granulocytes % Neutrophils % Segmented 49 Neutrophils % (Manual) Band Neutrophils % 40 H (Manual) Lymphocytes % Lymphocytes % 4 L (Manual) Monocytes % Monocytes % (Manual) 4 Eosinophils % Basophils % Metamyelocytes % 2 H (manual) Myelocytes % 1 H (Manual) Nucleated Red Blood 0.0 Cells % Immature 0.710 H Granulocytes # Neutrophils # Neutrophils # 10.8 H (Manual) Band Neutrophils # 7.6 H Lymphocytes (Manual) 0.7 L Lymphocytes # Monocytes # Monocytes # (Manual) 0.7 Eosinophils # Basophils # Metamyelocytes # 0.3 H Myelocytes # 0.1 H Nucleated Red Blood Cells # Platelet Estimate DECREASED Anisocytosis 1+ Sodium Level 141 Potassium Level 3.8 Chloride Level 106 Carbon Dioxide Level 22 Anion Gap 13 Blood Urea Nitrogen 28 H Creatinine 2.49 H Est Glomerular Filtrat Rate mL/min Glucose Level 125 Calcium Level 8.2 L Test 01/21/19 12:49 01/21/19 14:37 Bedside Glucose 193 163 Medications Medications Current Medications IV Flush (NS 3 ml) 3 ml PER PROTOCOL IV ; Start 01/19/19 at 23:30 Ondansetron HCl (Zofran Inj) 4 mg Q6H PRN IV NAUSEA/VOMITING Last administered on 01/20/19at 10:35; Admin Dose 4 MG; Start 01/19/19 at 23:30 Aspirin (Aspirin) 81 mg DAILY PO Last administered on 01/21/19at 09:50; Admin Dose 81 MG; Start 01/20/19 at 09:00 Nitroglycerin (Nitroglycerin (Sl Tab) 0.4 Mg) 1 tab Q5M PRN SL .CHEST PAIN; Start 01/19/19 at 23:30 Acetaminophen (Tylenol Tab) 650 mg Q6H PRN PO .PAIN 1-3 OR TEMP; Start 01/19/19 at 23:30 Heparin Sodium (Porcine) (Heparin (5000 Units/1ml)) 5,000 unit Q12 SC Last administered on 01/21/19at 09:47; Admin Dose 5,000 UNIT; Start 01/20/19 at 09:00 Albuterol/ Ipratropium (Duoneb) 3 ml Q2H RESP THERAPY PRN HHN SHORTNESS OF BREATH; Start 01/19/19 at 23:30 Diagnostic Test (Pha) (Accu-Chek) 1 ea 02 XX ; Start 01/20/19 at 02:00 Insulin Aspart (Novolog Insulin Pen) NOVOLOG *MILD* ALGORITHM WITH MEALS BEDTIME SC Last administered on 01/21/19at 12:54; Admin Dose 2 UNIT; Start 01/20/19 at 07:55 Atenolol (Tenormin) 25 mg DAILY PO Last administered on 01/20/19at 08:15; Admin Dose 25 MG; Start 01/20/19 at 09:00 Docusate Sodium (Colace) 100 mg TID PO Last administered on 01/21/19 09:50; Admin Dose 100 MG; Start 01/20/19 at 09:00 Furosemide (Lasix) 20 mg DAILY PO Last administered on 01/21/19at 09:50; Admin Dose 20 MG; Start 01/20/19 at 09:00 Metformin HCl (Glucophage) 1,000 mg WITH BREAKFAST PO Last administered on 01/21/19at 09:57; Admin Dose 1,000 MG; Start 01/20/19 at 07:55 Miscellaneous Information 1 ea NOTE XX ; Start 01/20/19 at 02:30 Glucose (Glutose) 15 gm Q15M PRN PO DECREASED GLUCOSE; Start 01/20/19 at 02:30 Glucose (Glutose) 22.5 gm Q15M PRN PO DECREASED GLUCOSE; Start 01/20/19 at 02:30 Dextrose (D50w Syringe) 25 ml Q15M PRN IV DECREASED GLUCOSE; Start 01/20/19 at 02:30 Dextrose (D50w Syringe) 50 ml Q15M PRN IV DECREASED GLUCOSE; Start 01/20/19 at 02:30 Glucagon (Glucagen) 1 mg Q15M PRN IM DECREASED GLUCOSE; Start 01/20/19 at 02:30 Glucose (Glutose) 15 gm Q15M PRN BUCCAL DECREASED GLUCOSE; Start 01/20/19 at 02:30 Piperacillin Sod/ Tazobactam Sod 50 ml @ 100 mls/hr Q6 IVPB Last administered on 01/21/19at 12:47; Admin Dose 100 MLS/HR; Start 01/20/19 at 18:00 Acetaminophen (Tylenol Supp) 650 mg Q6H PRN ND ELEVATED TEMPERATURE Last administered on 01/20/19at 19:08; Admin Dose 650 MG; Start 01/20/19 at 19:00 Potassium Chloride/Sodium Chloride 1,000 ml @ 100 mls/hr Q10H IV Last administered on 01/21/19at 11:04; Admin Dose 100 MLS/HR; Start 01/20/19 at 20:00 Norepinephrine 250 ml @ 1.875 mls/ hr TITRATE IV Last administered on 01/21/19at 01:45; Admin Dose 1.875 MLS/HR; Start 01/21/19 at 00:30 Insulin Glargine (Lantus) 15 units DAILY@2000 SC ; Start 01/21/19 at 20:00 ELE CAMPOS MD January 21, 2019 15:29
--- NOTE | 2019-01-21 15:39 | CONS ---
Assessment/Plan Assessment/Plan Assessment/Plan (Daily) 1. acute kidney injury oliguric due to ATN From sepsis 2. Sepsis 2/2 acute cholecystitis 3. abdominal pain/Chest pain due to # 2 4. paroxysmal atrial fibrillation 5. H/O HTN 6. H/o HL 7. H/o DM II Plan: Urine out put 250 cc so far in last 12 hr IV abx Zosyn for acute cholecystitis, Renally dose all abx and monitor electrolytes IVF NS with KCL at 100 cc/hr Stop lasix PO due to acute kidney injury and Hypokalemia Keep pt event, will follow up, pt is ordered to have MRI- no plan to use any contrast due to G[place] Thanks for consultation< I will continue to follow up Consultation Date/Type/Reason Admit Date/Time 01/19/2019 Date of Consultation: January 21, 2019 Type of Consult NEPHROLOGY Reason for Consultation acute kidney injury, Hypokalemia, sepsis Requesting Provider: ELIAS MONTGOMERY Date/Time of Note DATE: 01/21/19 TIME: 15:38 Hx of Present Illness 73-year-old female with a history of hypertension, type 2 diabetes, dyslipidemia, valve replacement, ovarian cancer status post surgery who presents the ER complaining of chest pain, diffuse abdominal pain, shortness of breath, nausea/vomiting. pt gets admitted for sepsis and possible acute cholecystitis, S/p Surgey consult, HIDA scan has been ordered, On Admission BUN/Cr 26/0.85- which bumped to BUN/Cr 28/2.49- K was low 2.9- Renal has been consulted for acute Kidney injury, Hypokalemia., Constitutional: no complaints Eyes: no complaints ENT: no complaints Respiratory: no complaints Cardiovascular: chest pain Gastrointestinal: pain, nausea, vomiting Genitourinary: no complaints Musculoskeletal: no complaints Skin: no complaints Neurologic: no complaints Endocrine: no complaints Lymphatic: no complaints Psychological: no complaints Immunologic: no complaints Past Medical History Medical History: diabetes, hypertension, other (See HPI) Home Meds Active Scripts Docusate Sodium* (Colace*) 100 Mg Capsule, 100 MG PO TID for CONSTIPATION, #30 CAP Prov:MIN NEWTON MD 12/18/16 Furosemide* (Lasix*) 20 Mg Tablet, 20 MG PO DAILY, #10 TAB Prov:MIN NEWTON MD 12/18/16 Reported Medications Chlorthalidone* (Chlorthalidone*) 25 Mg Tablet, 25 MG PO DAILY for 90 Days 01/20/19 Ibuprofen* (Ibuprofen*) 800 Mg Tablet, 800 MG PO Q6H PRN for PAIN LEVEL 7-10 for 30 Days, #90 01/20/19 Metformin Hcl* (Metformin Hcl*) 1,000 Mg Tablet, 1000 MG PO WITH BREAKFAST, #30 TAB 12/18/16 Atenolol* (Atenolol*) 25 Mg Tablet, 25 MG PO DAILY, #30 TAB 12/18/16 Discontinued Scripts Ibuprofen* (Motrin*) 600 Mg Tab, 600 MG PO Q8 for PAIN AND/OR INFLAMMATION, #30 TAB Prov:MIN NEWTON MD 12/18/16 Medications Current Medications IV Flush (NS 3 ml) 3 ml PER PROTOCOL IV ; Start 01/19/19 at 23:30 Ondansetron HCl (Zofran Inj) 4 mg Q6H PRN IV NAUSEA/VOMITING Last administered on 01/20/19at 10:35; Admin Dose 4 MG; Start 01/19/19 at 23:30 Aspirin (Aspirin) 81 mg DAILY PO Last administered on 01/21/19at 09:50; Admin Dose 81 MG; Start 01/20/19 at 09:00 Nitroglycerin (Nitroglycerin (Sl Tab) 0.4 Mg) 1 tab Q5M PRN SL .CHEST PAIN; Start 01/19/19 at 23:30 Acetaminophen (Tylenol Tab) 650 mg Q6H PRN PO .PAIN 1-3 OR TEMP; Start 01/19/19 at 23:30 Heparin Sodium (Porcine) (Heparin (5000 Units/1ml)) 5,000 unit Q12 SC Last administered on 01/21/19at 09:47; Admin Dose 5,000 UNIT; Start 01/20/19 at 09:00 Albuterol/ Ipratropium (Duoneb) 3 ml Q2H RESP THERAPY PRN HHN SHORTNESS OF BREATH; Start 01/19/19 at 23:30 Diagnostic Test (Pha) (Accu-Chek) 1 ea 02 XX ; Start 01/20/19 at 02:00 Insulin Aspart (Novolog Insulin Pen) NOVOLOG *MILD* ALGORITHM WITH MEALS BEDTIME SC Last administered on 01/21/19at 12:54; Admin Dose 2 UNIT; Start 01/20/19 at 07:55 Atenolol (Tenormin) 25 mg DAILY PO Last administered on 01/20/19at 08:15; Admin Dose 25 MG; Start 01/20/19 at 09:00 Docusate Sodium (Colace) 100 mg TID PO Last administered on 01/21/19 09:50; Admin Dose 100 MG; Start 01/20/19 at 09:00 Furosemide (Lasix) 20 mg DAILY PO Last administered on 01/21/19 09:50; Admin Dose 20 MG; Start 01/20/19 at 09:00 Metformin HCl (Glucophage) 1,000 mg WITH BREAKFAST PO Last administered on 01/21/19 09:57; Admin Dose 1,000 MG; Start 01/20/19 at 07:55 Miscellaneous Information 1 ea NOTE XX ; Start 01/20/19 at 02:30 Glucose (Glutose) 15 gm Q15M PRN PO DECREASED GLUCOSE; Start 01/20/19 at 02:30 Glucose (Glutose) 22.5 gm Q15M PRN PO DECREASED GLUCOSE; Start 01/20/19 at 02:30 Dextrose (D50w Syringe) 25 ml Q15M PRN IV DECREASED GLUCOSE; Start 01/20/19 at 02:30 Dextrose (D50w Syringe) 50 ml Q15M PRN IV DECREASED GLUCOSE; Start 01/20/19 at 02:30 Glucagon (Glucagen) 1 mg Q15M PRN IM DECREASED GLUCOSE; Start 01/20/19 at 02:30 Glucose (Glutose) 15 gm Q15M PRN BUCCAL DECREASED GLUCOSE; Start 01/20/19 at 02:30 Piperacillin Sod/ Tazobactam Sod 50 ml @ 100 mls/hr Q6 IVPB Last administered on 01/21/19at 12:47; Admin Dose 100 MLS/HR; Start 01/20/19 at 18:00 Acetaminophen (Tylenol Supp) 650 mg Q6H PRN [place] ELEVATED TEMPERATURE Last admini stered on 01/20/19at 19:08; Admin Dose 650 MG; Start 01/20/19 at 19:00 Potassium Chloride/Sodium Chloride 1,000 ml @ 100 mls/hr Q10H IV Last administered on 01/21/19at 11:04; Admin Dose 100 MLS/HR; Start 01/20/19 at 20:00 Norepinephrine 250 ml @ 1.875 mls/ hr TITRATE IV Last administered on 9at 01:45; Admin Dose 1.875 MLS/HR; Start 01/21/19 at 00:30 Insulin Glargine (Lantus) 15 units DAILY@2000 SC ; Start 01/21/19 at 20:00 Allergies: Coded Allergies: No Known Allergy (Unverified , 12/18/16) Past Surgical History Past Surgical Hx: other (OVarian CA surgery< Cardiac valve replacement as per patient ) Family History Significant Family History: no pertinent family hx Social History Alcohol Use: none Smoking Status: Never smoker Drug Use: none Exam/Review of Systems Exam Vitals Vital Signs Date Temp Pulse Resp B/P (MAP) Pulse Ox O2 O2 Flow FiO2 Time Delivery Rate 01/21/19 54 12:00 01/21/19 16 108/52 96 08:45 (70) 01/21/19 Room Air 08:00 01/21/19 98.0 04:00 01/21/19 2.0 02:00 01/21/19 33 01:48 Intake and Output 01/20/19 01/20/19 01/21/19 1515:00 23:00 07:00 IntakeIntake Total 710 ml 1026.75 ml OutputOutput Total 120 ml 125 ml BalanceBalance 590 ml 901.75 ml Constitutional: alert, oriented Head: normocephalic ENMT: nl external ears & nose Neck: supple, non-tender Respiratory: clear to auscultation, normal air movement, diminished breath sounds Cardiovascular: regular rate and rhythm, nl pulses Gastrointestinal: soft, non-tender Musculoskeletal: nl extremities to inspection, swelling Extremities: normal pulses Neurological: GRANITE POLISHER II-XII intact, nl mental status, nl speech, nl strength Skin: nl turgor Lymph: nl lymph nodes Results Result Diagram: 01/21/19 0452 01/21/19 0452 Results 24hrs Laboratory Tests Test 01/20/19 16:16 01/20/19 18:17 01/20/19 19:00 01/20/19 20:07 Bedside Glucose 200 196 Urine Color RONNIE Urine Clarity CLEAR Urine pH 7.0 Urine Specific 1.016 Vickery Urine Ketones NEGATIVE Urine Nitrite NEGATIVE Urine Bilirubin 1+ H Urine Urobilinogen 2+ H Urine Leukocyte NEGATIVE Esterase Urine Microscopic 4 RBC Urine Microscopic 5 WBC Urine Hemoglobin 1+ H Urine Glucose NEGATIVE Urine Total Protein 2+ H White Blood Count 15.7 #H Red Blood Count 4.29 Hemoglobin 12.9 Hematocrit 37.8 Mean Corpuscular 88.1 Volume Mean Corpuscular 30.1 Hemoglobin Mean Corpuscular 34.1 Hemoglobin Concent Red Cell 13.0 Distribution Width Platelet Count 126 L Mean Platelet Volume 11.4 H Immature 0.900 H Granulocytes % Neutrophils % Segmented 76 Neutrophils % (Manual) Band Neutrophils % 17 H (Manual) Lymphocytes % Lymphocytes % 4 L (Manual) Monocytes % Monocytes % (Manual) 2 Eosinophils % Basophils % Metamyelocytes % 1 H (manual) Nucleated Red Blood 0.0 Cells % Immature 0.140 H Granulocytes # Neutrophils # Neutrophils # 12.3 H (Manual) Band Neutrophils # 2.6 H Lymphocytes (Manual) 0.6 L Lymphocytes # Monocytes # Monocytes # (Manual) 0.3 Eosinophils # Basophils # Metamyelocytes # 0.1 H Nucleated Red Blood Cells # Platelet Estimate NORMAL Giant Platelets 5 H Anisocytosis 1+ Microcytosis 1+ Sodium Level 137 Potassium Level 2.9 *L Chloride Level 98 Carbon Dioxide Level 26 Anion Gap 13 Blood Urea Nitrogen 24 H Creatinine 1.85 #H Est Glomerular Filtrat Rate mL/min Glucose Level 160 Calcium Level 8.9 Total Bilirubin 4.9 #H Direct Bilirubin 3.80 #H Indirect Bilirubin 1.1 Aspartate Amino 463 H Transf (AST/SGOT) Alanine 536 H Aminotransferase (AL T/SGPT) Alkaline Phosphatase 277 H Total Protein 6.8 Albumin 3.6 Globulin 3.20 Albumin/Globulin 1.12 Ratio Test 01/20/19 20:48 01/21/19 04:52 01/21/19 08:22 01/21/19 09:56 Bedside Glucose 138 121 192 White Blood Count 19.0 #H Red Blood Count 4.13 L Hemoglobin 12.4 Hematocrit 36.8 L Mean Corpuscular 89.1 Volume Mean Corpuscular 30.0 Hemoglobin Mean Corpuscular 33.7 Hemoglobin Concent Red Cell 13.4 Distribution Width Platelet Count 107 L Mean Platelet Volume 11.7 H Immature 3.700 H Granulocytes % Neutrophils % Segmented 49 Neutrophils % (Manual) Band Neutrophils % 40 H (Manual) Lymphocytes % Lymphocytes % 4 L (Manual) Monocytes % Monocytes % (Manual) 4 Eosinophils % Basophils % Metamyelocytes % 2 H (manual) Myelocytes % 1 H (Manual) Nucleated Red Blood 0.0 Cells % Immature 0.710 H Granulocytes # Neutrophils # Neutrophils # 10.8 H (Manual) Band Neutrophils # 7.6 H Lymphocytes (Manual) 0.7 L Lymphocytes # Monocytes # Monocytes # (Manual) 0.7 Eosinophils # Basophils # Metamyelocytes # 0.3 H Myelocytes # 0.1 H Nucleated Red Blood Cells # Platelet Estimate DECREASED Anisocytosis 1+ Sodium Level 141 Potassium Level 3.8 Chloride Level 106 Carbon Dioxide Level 22 Anion Gap 13 Blood Urea Nitrogen 28 H Creatinine 2.49 H Est Glomerular Filtrat Rate mL/min Glucose Level 125 Calcium Level 8.2 L Test 01/21/19 12:49 01/21/19 14:37 Bedside Glucose 193 163 Medications Medication Current Medications IV Flush (NS 3 ml) 3 ml PER PROTOCOL IV ; Start 01/19/19 at 23:30 Ondansetron HCl (Zofran Inj) 4 mg Q6H PRN IV NAUSEA/VOMITING Last administered on 01/20/19at 10:35; Admin Dose 4 MG; Start 01/19/19 at 23:30 Aspirin (Aspirin) 81 mg DAILY PO Last administered on 01/21/19at 09:50; Admin Dose 81 MG; Start 01/20/19 at 09:00 Nitroglycerin (Nitroglycerin (Sl Tab) 0.4 Mg) 1 tab Q5M PRN SL .CHEST PAIN; Start 01/19/19 at 23:30 Acetaminophen (Tylenol Tab) 650 mg Q6H PRN PO .PAIN 1-3 OR TEMP; Start 01/19/19 at 23:30 Heparin Sodium (Porcine) (Heparin (5000 Units/1ml)) 5,000 unit Q12 SC Last administered on 01/21/19at 09:47; Admin Dose 5,000 UNIT; Start 01/20/19 at 09:00 Albuterol/ Ipratropium (Duoneb) 3 ml Q2H RESP THERAPY PRN HHN SHORTNESS OF B REATH; Start 01/19/19 at 23:30 Diagnostic Test (Pha) (Accu-Chek) 1 ea 02 XX ; Start 01/20/19 at 02:00 Insulin Aspart (Novolog Insulin Pen) NOVOLOG *MILD* ALGORITHM WITH MEALS BEDTIME SC Last administered on 01/21/19at 12:54; Admin Dose 2 UNIT; Start 01/20/19 at 07:55 Atenolol (Tenormin) 25 mg DAILY PO Last administered on 01/20/19at 08:15; Admin Dose 25 MG; Start 01/20/19 at 09:00 Docusate Sodium (Colace) 100 mg TID PO Last administered on 01/21/19 09:50; Admin Dose 100 MG; Start 01/20/19 at 09:00 Furosemide (Lasix) 20 mg DAILY PO Last administered on 01/21/19 09:50; Admin Dose 20 MG; Start 01/20/19 at 09:00 Metformin HCl (Glucophage) 1,000 mg WITH BREAKFAST PO Last administered on 09:57; Admin Dose 1,000 MG; Start 01/20/19 at 07:55 Miscellaneous Information 1 ea NOTE XX ; Start 01/20/19 at 02:30 Glucose (Glutose) 15 gm Q15M PRN PO DECREASED GLUCOSE; Start 01/20/19 at 02:30 Glucose (Glutose) 22.5 gm Q15M PRN PO DECREASED GLUCOSE; Start 01/20/19 at 02:30 Dextrose (D50w Syringe) 25 ml Q15M PRN IV DECREASED GLUCOSE; Start 01/20/19 at 02:30 Dextrose (D50w Syringe) 50 ml Q15M PRN IV DECREASED GLUCOSE; Start 01/20/19 at 02:30 Glucagon (Glucagen) 1 mg Q15M PRN IM DECREASED GLUCOSE; Start 01/20/19 at 02:30 Glucose (Glutose) 15 gm Q15M PRN BUCCAL DECREASED GLUCOSE; Start 01/20/19 at 02:30 Piperacillin Sod/ Tazobactam Sod 50 ml @ 100 mls/hr Q6 IVPB Last administered on 01/21/19at 12:47; Admin Dose 100 MLS/HR; Start 01/20/19 at 18:00 Acetaminophen (Tylenol Supp) 650 mg Q6H PRN [place] ELEVATED TEMPERATURE Last administered on 01/20/19at 19:08; Admin Dose 650 MG; Start 01/20/19 at 19:00 Potassium Chloride/Sodium Chloride 1,000 ml @ 100 mls/hr Q10H IV Last adminis tered on 01/21/19at 11:04; Admin Dose 100 MLS/HR; Start 01/20/19 at 20:00 Norepinephrine 250 ml @ 1.875 mls/ hr TITRATE IV Last administered on 01/21/19at 01:45; Admin Dose 1.875 MLS/HR; Start 01/21/19 at 00:30 Insulin Glargine (Lantus) 15 units DAILY@2000 SC ; Start 01/21/19 at 20:00 ALYSSA MARLEY MD January 21, 2019 15:38
--- NOTE | 2019-01-21 17:45 | RADRPT ---
Echocardiogram Report Patient Name: HEMALATHA BRADLEYPatient ID: [id number] : [id number] (73y 7m)Study Date: 01/21/2019 9:18:39 AM Gender: FAccession #: [id number] [place] [facility] [place]Physician: CHRIS SOTO Height(Cm): 152 BSA: 1.79Weight(Kg): 75.8 Quality: AdequateAccount #: Procedures: Echocardiographic Report: Transthoracic echocardiogram with complete 2D, M-Mode, and Doppler examination. Indications: Chest Pain. Measurements: 2D/M Mode Doppler Measurement Value Normal Range Measurement Value Normal Range LA Volume 69.1 [ 22.0 - 52.0 ] ml TAIWO VTI 1.7 [ 2.0 - 4.0 ] cm2 LA Volume Index 40 [ 16 - 34 ] ml/m2 AV Mean Geovany 1.4 [ 70.0 - 90.0 ] cm/ sec LVIDd 2D 4.5 [ 3.8 - 5.2 ] cm AV Mean PG 9.0 [ 2.0 - 4.0 ] mmHg LVIDs 2D 2.7 [ 2.2 - 3.5 ] cm AV VTI 47.7 cm LVPWd 2D 1.2 [ 0.6 - 0.9 ] cm LVOT Mean Geovany 0.7 [ 60.0 - 80.0 ] cm/ sec IVSd 2D 1.2 [ 0.6 - 0.9 ] cm LVOT Mean PG 2.0 [ 1.0 - 3.0 ] mmHg EDV 2D 92.4 [ 46.0 - 106.0 ] ml LVOT Peak Geovany 1.1 [ 70.0 - 110.0 ] cm /sec ESV 2D 27.3 [ 14.0 - 42.0 ] ml LVOT Peak PG 5.0 [ 2.0 - 6.0 ] mmHg EF 2D 70.5 [ 54.0 - 74.0 ] percent LVOT VTI 25.7 [ 20.0 - 30.0 ] cm LA Dimen 2D 4.0 [ 2.7 - 3.8 ] cm MV E Peak Geovany 1.1 [ 60.0 - 130.0 ] cm /sec LVOT Diam 2.0 [ 2.1 - 2.5 ] cm MV A Peak Geovany 1.0 [ 100.0 - 120.0 ] c m/sec MV E/A 1.1 [ 0.8 - 1.5 ] ratio MV PHT 77.0 [ 20.0 - 100.0 ] ms ec MV Decel Time 264 [ 104 - 258 ] msec MV Decel [place] 4 Lat E` Geovany 0.1 [ 10.0 - 15.0 ] cm/ sec Lateral E/E` 16.7 [ 1.0 - 2.0 ] ratio MV E/A 1.1 [ 0.8 - 1.5 ] ratio MVA PHT 2.9 [ 2.0 - 4.0 ] cm2 TR Peak Geovany 2.4 [ 100.0 - 280.0 ] c m/sec TR Peak PG 22.0 mmHg PV Peak Geovany 1.0 [ 40.0 - 80.0 ] cm/ sec PV Peak PG 4.0 mmHg RVSP 32.0 [ 10.0 - 36.0 ] mmH g RA Pressure 10.0 mmHg Findings: Left Ventricle: Normal left ventricular systolic function. Normal left ventricular cavity size. Mild concentric left ventricular hypertrophy. Ejection fraction is visually estimated at 65 %. Abnormal Diastolic Function. E/E'= 17. Right Ventricle: Normal right ventricular size. Normal right ventricular systolic function. Left Atrium: There is moderate enlargement of left atrium appreciated best by REGINA 38 ml/m2. Right Atrium: The right atrium is normal in size. Atrial Septum: Normal atrial septum. Mitral Valve: Normal appearance and function of the mitral valve with trace physiologic regurgitation. Mild mitral annular calcification. Aortic Valve: Aortic Valve Bio Prosthesis. Gradients normal for valve type and size. Aortic valve Max velocity 2.07 m/sec. Max PG 17.00 mmHg. Mean PG 9.00 mmHg. Aortic valve area 1.70 cm2. No aortic regurgitation. Tricuspid Valve: Normal appearance of the tricuspid valve. Estimated peak PA systolic pressure 32 mmHg. There is trace to mild tricuspid regurgitation. Pulmonic Valve: Normal pulmonic valve appearance. Pericardium: Normal pericardium with no significant pericardial effusion. Aorta: Normal aortic root. IVC: Normal size and normal respiratory collapse consistent with normal right atrial pressure. Pulmonary Artery: Normal pulmonary artery size. Conclusions: Normal left ventricular systolic function. Normal left ventricular cavity size. Mild concentric left ventricular hypertrophy. Ejection fraction is visually estimated at 65 %. Abnormal Diastolic Function. E/E'= 17. Aortic Valve IS S/P TAVR. Gradients normal for valve type and size. Aortic valve Max velocity 2.07 m/sec. Max PG 17.00 mmHg. Mean PG 9.00 mmHg. Aortic valve area 1.70 cm2. No aortic regurgitation. Normal appearance and function of the mitral valve with trace physiologic regurgitation. Mild mitral annular calcification. Normal appearance of the tricuspid valve. Estimated peak PA systolic pressure 32 mmHg. There is trace to mild tricuspid regurgitation. Electronically Signed By: Cecil Sanchez 2019-01-21 17:45:20 PDT
[2019-01-21] MEDS: INSULIN GLARGINE [LANTus] (100 UNITS/ML) SYG SC SCH (20:21)
--- NOTE | 2019-01-21 23:22 | PN ---
Date/Time of Note Date/Time of Note DATE: 01/21/19 TIME: 23:22 Assessment/Plan Lines/Catheters IV C[facility] Type (from [facility] Peripheral IV [place] in Place (from Nrs): Yes Exam/Review of Systems Vital Signs Vitals Vital Signs Date Temp Pulse Resp B/P (MAP) Pulse Ox O2 O2 Flow FiO2 Time Delivery Rate 01/21/19 57 19 104/54 97 Room Air 23:00 (71) 01/21/19 99.0 16:30 01/21/19 2.0 02:00 01/21/19 21 01:48 Intake and Output 01/20/19 01/20/19 01/21/19 1515:00 23:00 07:00 IntakeIntake Total 710 ml 1026.75 ml OutputOutput Total 120 ml 125 ml BalanceBalance 590 ml 901.75 ml Results Result Diagram: 01/21/19 0452 01/21/19 0452 LALITAH HERMAN MD January 21, 2019 23:22
[2019-01-22] VITALS (45 sets, daily range): BP systolic 101–162; BP diastolic 47–77; PULSE 55–68; RESP 15–20
[2019-01-22] MEDS: ACCU-CHEK XX SCH (01:55)
[2019-01-22] MEDS: PIPER-TAZO 2.25 GM/NS 50 ML IVPB SCH ×4 (05:14→23:35)
[2019-01-22] MEDS: NS + KCL 20 MEQ 1,000 ML IV SCH (07:21)
[2019-01-22] MEDS: INSULIN ASPART [NOVOLOG] 3 ML PEN SC SCH ×4 (07:35→20:56)
[2019-01-22] MEDS: metFORMIN 500 MG TAB PO SCH (07:35)
[2019-01-22] MEDS: ATENOLOL 25 MG TAB PO SCH (09:00)
[2019-01-22] MEDS: ASPIRIN 81 MG TAB PO SCH (09:00)
[2019-01-22] MEDS: HEPARIN 5,000 UNIT/1 ML VIAL SC SCH ×2 (09:00→20:52)
[2019-01-22] MEDS: DOCUSATE SODIUM 100 MG CAP PO SCH ×3 (09:00→20:50)
--- NOTE | 2019-01-22 10:02 | CONS ---
Assessment/Plan Assessment/Plan Assessment/Plan (Daily) 1. acute kidney injury oliguric due to ATN From sepsis 2. Sepsis 2/2 acute cholecystitis 3. abdominal pain/Chest pain due to # 2 4. paroxysmal atrial fibrillation 5. H/O HTN 6. H/o HL 7. H/o DM II Plan: BUN/Cr 39/2.99, electrolytes stable, urine output 995 ml, Expecting Cr to improve after urine output improvement , IV abx Zosyn for acute cholecystitis, Renally dose all abx and monitor electrolytes IVF NS with KCL at 100 cc/hr will follow up Consultation Date/Type/Reason Admit Date/Time January 20, 2019 at 18:00 Initial Consult Date 01/21/19 Type of Consult NEPHROLOGY Requesting Provider: ELIAS MONTGOMERY Date/Time of Note DATE: 01/22/19 TIME: 10:02 24 HR Interval Summary Free Text/Dictation BUn/Cr went upto 39/2.99, K normal, Exam/Review of Systems Exam Vitals Vital Signs Date Temp Pulse Resp B/P (MAP) Pulse Ox O2 O2 Flow FiO2 Time Delivery Rate 01/22/19 59 18 123/47 97 Room Air 09:30 (72) 01/22/19 98.9 08:00 01/21/19 2.0 02:00 01/21/19 21 01:48 Intake and Output 01/21/19 01/21/19 01/22/19 1515:00 23:00 07:00 IntakeIntake Total 811.251 ml 737.813 ml 900 ml OutputOutput Total 170 ml 365 ml 490 ml BalanceBalance 641.251 ml 372.813 ml 410 ml Exam Constitutional: alert, oriented Respiratory: clear to auscultation, normal air movement, diminished breath sounds Cardiovascular: regular rate and rhythm, nl pulses Gastrointestinal: soft, non-tender Musculoskeletal: nl extremities to inspection, swelling Extremities: normal pulses Neurological: CHIEF CLERK SHELTER II-XII intact, nl mental status, nl speech, nl strength Results Result Diagram: 01/22/1930 01/22/1930 Results 24hrs Laboratory Tests Test 01/21/19 12:49 01/21/19 14:37 01/21/19 20:19 01/22/19 01:54 Bedside Glucose 193 163 117 98 Test 01/22/19 05:30 01/22/19 08:07 White Blood Count 12.6 #H Red Blood Count 3.60 L Hemoglobin 10.7 L Hematocrit 32.7 L Mean Corpuscular 90.8 Volume Mean Corpuscular 29.7 Hemoglobin Mean Corpuscular 32.7 Hemoglobin Concent Red Cell 13.6 Distribution Width Platelet Count 73 #L Mean Platelet 12.3 H Volume Immature 1.300 H Granulocytes % Neutrophils % Segmented 74 Neutrophils % (Manual) Band Neutrophils % 11 H (Manual) Lymphocytes % Lymphocytes % 10 L (Manual) Monocytes % Monocytes % 3 (Manual) Eosinophils % Eosinophils % 1 (Manual) Basophils % Myelocytes % 1 H (Manual) Nucleated Red 0.0 Blood Cells % Immature 0.160 H Granulocytes # Neutrophils # Neutrophils # 9.5 H (Manual) Band Neutrophils # 1.3 H Lymphocytes 1.2 (Manual) Lymphocytes # Monocytes # Monocytes # 0.3 (Manual) Eosinophils # Basophils # Myelocytes # 0.1 H Nucleated Red Blood Cells # Platelet Estimate SIG DECREASED Polychromasia 1+ Poikilocytosis 2+ Anisocytosis 3+ Microcytosis 3+ Sodium Level 143 Potassium Level 3.5 Chloride Level 112 H Carbon Dioxide 22 Level Anion Gap 9 Blood Urea 39 #H Nitrogen Creatinine 2.99 H Est Glomerular Filtrat Rate mL/min Glucose Level 96 Calcium Level 8.2 L Magnesium Level 2.2 Bedside Glucose 86 Medications Medication Current Medications IV Flush (NS 3 ml) 3 ml PER PROTOCOL IV ; Start 01/19/19 at 23:30 Ondansetron HCl (Zofran Inj) 4 mg Q6H PRN IV NAUSEA/VOMITING Last administered on 01/20/19at 10:35; Admin Dose 4 MG; Start 01/19/19 at 23:30 Aspirin (Aspirin) 81 mg DAILY PO Last administered on 01/21/19at 09:50; Admin Dose 81 MG; Start 01/20/19 at 09:00 Nitroglycerin (Nitroglycerin (Sl Tab) 0.4 Mg) 1 tab Q5M PRN SL .CHEST PAIN; Start 01/19/19 at 23:30 Acetaminophen (Tylenol Tab) 650 mg Q6H PRN PO .PAIN 1-3 OR TEMP; Start 01/19/19 at 23:30 Heparin Sodium (Porcine) (Heparin (5000 Units/1ml)) 5,000 unit Q12 SC Last administered on 01/21/19at 21:22; Admin Dose 5,000 UNIT; Start 01/20/19 at 09:00 Albuterol/ Ipratropium (Duoneb) 3 ml Q2H RESP THERAPY PRN HHN SHORTNESS OF BREATH; Start 01/19/19 at 23:30 Diagnostic Test (Pha) (Accu-Chek) 1 ea 02 XX ; Start 01/20/19 at 02:00 Insulin Aspart (Novolog Insulin Pen) NOVOLOG *MILD* ALGORITHM WITH MEALS BEDTIME SC Last administered on 01/21/19at 12:54; Admin Dose 2 UNIT; Start 01/20 at 07:55 Atenolol (Tenormin) 25 mg DAILY PO Last administered on 01/20/19at 08:15; Admin Dose 25 MG; Start 01/20/19 at 09:00 Docusate Sodium (Colace) 100 mg TID PO Last administered on 01/21/19at 09:50; Admin Dose 100 MG; Start 01/20/19 at 09:00 Metformin HCl (Glucophage) 1,000 mg WITH BREAKFAST PO Last administered on 01/21/19at 09:57; Admin Dose 1,000 MG; Start 01/20/19 at 07:55 Miscellaneous Information 1 ea NOTE XX ; Start 01/20/19 at 02:30 Glucose (Glutose) 15 gm Q15M PRN PO DECREASED GLUCOSE; Start 01/20/19 at 02:30 Glucose (Glutose) 22.5 gm Q15M PRN PO DECREASED GLUCOSE; Start 01/20/19 at 02:30 Dextrose (D50w Syringe) 25 ml Q15M PRN IV DECREASED GLUCOSE; Start 01/20/19 at 02:30 Dextrose (D50w Syringe) 50 ml Q15M PRN IV DECREASED GLUCOSE; Start 01/20/19 at 02:30 Glucagon (Glucagen) 1 mg Q15M PRN IM DECREASED GLUCOSE; Start 01/20/19 at 02:30 Glucose (Glutose) 15 gm Q15M PRN BUCCAL DECREASED GLUCOSE; Start 01/20/19 at 02:30 Piperacillin Sod/ Tazobactam Sod 50 ml @ 100 mls/hr Q6 IVPB Last administered on 01/22/19at 05:14; Admin Dose 100 MLS/HR; Start 01/20/19 at 18:00 Acetaminophen (Tylenol Supp) 650 mg Q6H PRN [place] ELEVATED TEMPERATURE Last administered on 01/20/19at 19:08; Admin Dose 650 MG; Start 01/20/19 at 19:00 Potassium Chloride/Sodium Chloride 1,000 ml @ 100 mls/hr Q10H IV Last administered on 01/22/19at 07:21; Admin Dose 100 MLS/HR; Start 01/20/19 at 20:00 Norepinephrine 250 ml @ 1.875 mls/ hr TITRATE IV Last administered on 01/21/19at 01:45; Admin Dose 1.875 MLS/HR; Start 01/21/19 at 00:30 Insulin Glargine (Lantus) 15 units DAILY@2000 SC Last administered on 01/21/19at 20:21; Admin Dose 15 UNITS; Start 01/21/19 at 20:00 ALYSSA MARLEY MD January 22, 2019 10:02
--- NOTE | 2019-01-22 13:26 | PN ---
Date/Time of Note Date/Time of Note DATE: 01/22/19 TIME: 13:20 Assessment/Plan VTE Prophylaxis Risk score (from Ns)>0 risk: 10 SCD applied (from Nsg): Yes Pharmacological prophylaxis: heparin Lines/Catheters IV Catheter Type (from Nrsg): Peripheral IV Urinary Cath still in place: Yes Reason Cath still needed: urinary retention Assessment/Plan Hospital Course EXAM: Well appearing no disterss RRR CTAB Soft nt nd wwp no cce A/P: 73 yo female with DMII who presented with RUQ/chest pain found to have acute cholecystitis with elevated bilis and transaminitis who has been treated conservatively with antibiotics. Course complicated by GASTON and atrial fibrillation Cholecystitis with transaminitis: - LFTs and symptosm resolved. Continue medical management with IV abx GASTON: - Likley from sepsis, ATN - Trend creatinine A Fib:- - AC and rate control per cardiology Transfer to floor Result Diagram: 01/22/19 0530 01/22/19 0530 Results 24hrs Laboratory Tests Test 01/21/19 14:37 01/21/19 20:19 01/22/19 01:54 01/22/19 05:30 Bedside Glucose 163 117 98 White Blood Count 12.6 #H Red Blood Count 3.60 L Hemoglobin 10.7 L Hematocrit 32.7 L Mean Corpuscular 90.8 Volume Mean Corpuscular 29.7 Hemoglobin Mean Corpuscular 32.7 Hemoglobin Concent Red Cell 13.6 Distribution Width Platelet Count 73 #L Mean Platelet 12.3 H Volume Immature 1.300 H Granulocytes % Neutrophils % Segmented 74 Neutrophils % (Manual) Band Neutrophils % 11 H (Manual) Lymphocytes % Lymphocytes % 10 L (Manual) Monocytes % Monocytes % 3 (Manual) Eosinophils % Eosinophils % 1 (Manual) Basophils % Myelocytes % 1 H (Manual) Nucleated Red 0.0 Blood Cells % Immature 0.160 H Granulocytes # Neutrophils # Neutrophils # 9.5 H (Manual) Band Neutrophils # 1.3 H Lymphocytes 1.2 (Manual) Lymphocytes # Monocytes # Monocytes # 0.3 (Manual) Eosinophils # Basophils # Myelocytes # 0.1 H Nucleated Red Blood Cells # Platelet Estimate SIG DECREASED Polychromasia 1+ Poikilocytosis 2+ Anisocytosis 3+ Microcytosis 3+ Sodium Level 143 Potassium Level 3.5 Chloride Level 112 H Carbon Dioxide 22 Level Anion Gap 9 Blood Urea 39 #H Nitrogen Creatinine 2.99 H Est Glomerular Filtrat Rate mL/min Glucose Level 96 Calcium Level 8.2 L Magnesium Level 2.2 Total Bilirubin 0.8 # Direct Bilirubin 0.00 # Indirect Bilirubin 0.8 Aspartate Amino 90 H Transf (AST/SGOT) Alanine 260 H Aminotransferase ( ALT/SGPT) Alkaline 173 H Phosphatase Total Protein 5.1 #L Albumin 2.6 #L Test 01/22/19 08:07 01/22/19 12:28 Bedside Glucose 86 81 Subjective 24 Hr Interval Summary Free Text/Dictation RUQ pain is resolved, feels well LFTs much better Exam/Review of Systems Exam Vitals Vital Signs Date Temp Pulse Resp B/P (MAP) Pulse Ox O2 O2 Flow FiO2 Time Delivery Rate 01/22/19 59 18 123/47 97 Room Air 09:30 (72) 01/22/19 98.9 08:00 01/21/19 2.0 02:00 01/21/19 21 01:48 Intake and Output 01/21/19 01/21/19 01/22/19 1414:59 22:59 06:59 IntakeIntake Total 808.438 ml 740.626 ml 900 ml OutputOutput Total 200 ml 305 ml 490 ml BalanceBalance 608.438 ml 435.626 ml 410 ml Results Results 24hrs Laboratory Tests Test 01/21/19 14:37 01/21/19 20:19 01/22/19 01:54 01/22/19 05:30 Bedside Glucose 163 117 98 White Blood Count 12.6 #H Red Blood Count 3.60 L Hemoglobin 10.7 L Hematocrit 32.7 L Mean Corpuscular 90.8 Volume Mean Corpuscular 29.7 Hemoglobin Mean Corpuscular 32.7 Hemoglobin Concent Red Cell 13.6 Distribution Width Platelet Count 73 #L Mean Platelet 12.3 H Volume Immature 1.300 H Granulocytes % Neutrophils % Segmented 74 Neutrophils % (Manual) Band Neutrophils % 11 H (Manual) Lymphocytes % Lymphocytes % 10 L (Manual) Monocytes % Monocytes % 3 (Manual) Eosinophils % Eosinophils % 1 (Manual) Basophils % Myelocytes % 1 H (Manual) Nucleated Red 0.0 Blood Cells % Immature 0.160 H Granulocytes # Neutrophils # Neutrophils # 9.5 H (Manual) Band Neutrophils # 1.3 H Lymphocytes 1.2 (Manual) Lymphocytes # Monocytes # Monocytes # 0.3 (Manual) Eosinophils # Basophils # Myelocytes # 0.1 H Nucleated Red Blood Cells # Platelet Estimate SIG DECREASED Polychromasia 1+ Poikilocytosis 2+ Anisocytosis 3+ Microcytosis 3+ Sodium Level 143 Potassium Level 3.5 Chloride Level 112 H Carbon Dioxide 22 Level Anion Gap 9 Blood Urea 39 #H Nitrogen Creatinine 2.99 H Est Glomerular Filtrat Rate mL/min Glucose Level 96 Calcium Level 8.2 L Magnesium Level 2.2 Total Bilirubin 0.8 # Direct Bilirubin 0.00 # Indirect Bilirubin 0.8 Aspartate Amino 90 H Transf (AST/SGOT) Alanine 260 H Aminotransferase ( ALT/SGPT) Alkaline 173 H Phosphatase Total Protein 5.1 #L Albumin 2.6 #L Test 01/22/19 08:07 01/22/19 12:28 Bedside Glucose 86 81 Medications Medication Current Medications IV Flush (NS 3 ml) 3 ml PER PROTOCOL IV ; Start 01/19/19 at 23:30 Ondansetron HCl (Zofran Inj) 4 mg Q6H PRN IV NAUSEA/VOMITING Last administered on 01/20/19at 10:35; Admin Dose 4 MG; Start 01/19/19 at 23:30 Aspirin (Aspirin) 81 mg DAILY PO Last administered on 01/21/19at 09:50; Admin Dose 81 MG; Start 01/20/19 at 09:00 Nitroglycerin (Nitroglycerin (Sl Tab) 0.4 Mg) 1 tab Q5M PRN SL .CHEST PAIN; Start 01/19/19 at 23:30 Acetaminophen (Tylenol Tab) 650 mg Q6H PRN PO .PAIN 1-3 OR TEMP; Start 01/19/19 at 23:30 Heparin Sodium (Porcine) (Heparin (5000 Units/1ml)) 5,000 unit Q12 SC Last administered on 01/21/19at 21:22; Admin Dose 5,000 UNIT; Start 01/20/19 at 09:00 Albuterol/ Ipratropium (Duoneb) 3 ml Q2H RESP THERAPY PRN HHN SHORTNESS OF BREATH; Start 01/19/19 at 23:30 Diagnostic Test (Pha) (Accu-Chek) 1 ea 02 XX ; Start 01/20/19 at 02:00 Insulin Aspart (Novolog Insulin Pen) NOVOLOG *MILD* ALGORITHM WITH MEALS BEDTIME SC Last administered on 01/21/19 12:54; Admin Dose 2 UNIT; Start 01/20/19 at 07:55 Atenolol (Tenormin) 25 mg DAILY PO Last administered on 01/20/19at 08:15; Admin Dose 25 MG; Start 01/20/19 at 09:00 Docusate Sodium (Colace) 100 mg TID PO Last administered on 01/21/19at 09:50; Admin Dose 100 MG; Start 01/20/19 at 09:00 Metformin HCl (Glucophage) 1,000 mg WITH BREAKFAST PO Last administered on 01/21/19 09:57; Admin Dose 1,000 MG; Start 01/20/19 at 07:55 Miscellaneous Information 1 ea NOTE XX ; Start 01/20/19 at 02:30 Glucose (Glutose) 15 gm Q15M PRN PO DECREASED GLUCOSE; Start 01/20/19 at 02:30 Glucose (Glutose) 22.5 gm Q15M PRN PO DECREASED GLUCOSE; Start 01/20/19 at 02:30 Dextrose (D50w Syringe) 25 ml Q15M PRN IV DECREASED GLUCOSE; Start 01/20/19 at 02:30 Dextrose (D50w Syringe) 50 ml Q15M PRN IV DECREASED GLUCOSE; Start 01/20/19 at 02:30 Glucagon (Glucagen) 1 mg Q15M PRN IM DECREASED GLUCOSE; Start 01/20/19 at 02:30 Glucose (Glutose) 15 gm Q15M PRN BUCCAL DECREASED GLUCOSE; Start 01/20/19 at 02:30 Piperacillin Sod/ Tazobactam Sod 50 ml @ 100 mls/hr Q6 IVPB Last administered on 01/22/19at 12:24; Admin Dose 100 MLS/HR; Start 01/20/19 at 18:00 Acetaminophen (Tylenol Supp) 650 mg Q6H PRN [place] ELEVATED TEMPERATURE Last administered on 01/20/19at 19:08; Admin Dose 650 MG; Start 01/20/19 at 19:00 Potassium Chloride/Sodium Chloride 1,000 ml @ 100 mls/hr Q10H IV Last administered on 01/22/19at 07:21; Admin Dose 100 MLS/HR; Start 01/20/19 at 20:00 Norepinephrine 250 ml @ 1.875 mls/ hr TITRATE IV Last administered on 01/21/19at 01:45; Admin Dose 1.875 MLS/HR; Start 01/21/19 at 00:30 Insulin Glargine (Lantus) 15 units DAILY@2000 SC Last administered on 01/21/19at 20:21; Admin Dose 15 UNITS; Start 01/21/19 at 20:00 KAVITHA MILLAN MD January 22, 2019 13:26
--- NOTE | 2019-01-22 16:41 | CONS ---
Consult Date/Type/Reason Admit Date/Time January 20, 2019 at 18:00 Initial Consult Date 01/21/19 Type of Consultation: cv Requesting Provider: ELIAS MONTGOMERY Date/Time of Note DATE: 01/22/19 TIME: 16:38 Subjective Interventional cardiology follow-up progress note Subjective: Discussed with the staff. Telemetry was reviewed patient remains sinus rhythm. No chest pain or pressure no palpitation now. Abdominal pain appears to be improving now. pt is off levophed Objective: General: no acute distress HEENT: NC/AT. pupils are equal. round. NECK: NO JVD. no stridor. CV: bradycardic systolic murmur; no gallop or rubs. PULM: no wheezing or rhonchi. GI: SOFT, NT, ND, no rebound or guarding Extremity: trace B/L LE edema. no clubbing. neuro: awake and alert, OX3. Psych: calm and pleasant rectal: deferred EKG done on January 19 showed normal sinus rhythm nonspecific ST abnormalities. CT of the abdomen shows 1. Moderately distended gallbladder containing multiple sub centimeter gallstones with gallbladder wall thickening and surrounding inflammatory changes in keeping with acute cholecystitis. No biliary ductal dilatation. 2. Fatty liver. 3. Aortoiliac atherosclerosis without aneurysmal dilatation. 4. Transcatheter aortic valve replacement. Coronary artery vascular calcifications EchoCardiogram was personally reviewed which shows: Normal left ventricular systolic function. Normal left ventricular cavity size. Mild concentric left ventricular hypertrophy. Ejection fraction is visually estimated at 65 %. Abnormal Diastolic Function. E/E'= 17. Aortic Valve IS S/P TAVR. Gradients normal for valve type and size. Aortic valve Max velocity 2.07 m/sec. Max PG 17.00 mmHg. Mean PG 9.00 mmHg. Aortic valve area 1.70 cm2. No aortic regurgitation. Normal appearance and function of the mitral valve with trace physiologic regurgitation. Mild mitral annular calcification. Normal appearance of the tricuspid valve. Estimated peak PA systolic pressure 32 mmHg. There is trace to mild tricuspid regurgitation. Objective Vitals Vital Signs Date Temp Pulse Resp B/P (MAP) Pulse Ox O2 O2 Flow FiO2 Time Delivery Rate 01/22/19 55 12:00 01/22/19 18 123/47 97 Room Air 09:30 (72) 01/22/19 98.9 08:00 01/21/19 2.0 02:00 01/21/19 21 01:48 Intake and Output 01/21/19 01/21/19 01/22/19 1515:00 23:00 07:00 IntakeIntake Total 811.251 ml 737.813 ml 900 ml OutputOutput Total 170 ml 365 ml 490 ml BalanceBalance 641.251 ml 372.813 ml 410 ml Results/Medications Result Diagram: 01/22/19 0530 01/22/19 0530 Results 24 hrs Laboratory Tests Test 01/21/19 20:19 01/22/19 01:54 01/22/19 05:30 01/22/19 08:07 Bedside Glucose 117 98 86 White Blood Count 12.6 #H Red Blood Count 3.60 L Hemoglobin 10.7 L Hematocrit 32.7 L Mean Corpuscular 90.8 Volume Mean Corpuscular 29.7 Hemoglobin Mean Corpuscular 32.7 Hemoglobin Concent Red Cell 13.6 Distribution Width Platelet Count 73 #L Mean Platelet 12.3 H Volume Immature 1.300 H Granulocytes % Neutrophils % Segmented 74 Neutrophils % (Manual) Band Neutrophils % 11 H (Manual) Lymphocytes % Lymphocytes % 10 L (Manual) Monocytes % Monocytes % 3 (Manual) Eosinophils % Eosinophils % 1 (Manual) Basophils % Myelocytes % 1 H (Manual) Nucleated Red 0.0 Blood Cells % Immature 0.160 H Granulocytes # Neutrophils # Neutrophils # 9.5 H (Manual) Band Neutrophils # 1.3 H Lymphocytes 1.2 (Manual) Lymphocytes # Monocytes # Monocytes # 0.3 (Manual) Eosinophils # Basophils # Myelocytes # 0.1 H Nucleated Red Blood Cells # Platelet Estimate SIG DECREASED Polychromasia 1+ Poikilocytosis 2+ Anisocytosis 3+ Microcytosis 3+ Sodium Level 143 Potassium Level 3.5 Chloride Level 112 H Carbon Dioxide 22 Level Anion Gap 9 Blood Urea 39 #H Nitrogen Creatinine 2.99 H Est Glomerular Filtrat Rate mL/min Glucose Level 96 Calcium Level 8.2 L Magnesium Level 2.2 Total Bilirubin 0.8 # Direct Bilirubin 0.00 # Indirect Bilirubin 0.8 Aspartate Amino 90 H Transf (AST/SGOT) Alanine 260 H Aminotransferase ( ALT/SGPT) Alkaline 173 H Phosphatase Total Protein 5.1 #L Albumin 2.6 #L Test 01/22/19 12:28 Bedside Glucose 81 Home Meds Active Scripts Docusate Sodium* (Colace*) 100 Mg Capsule, 100 MG PO TID for CONSTIPATION, #30 CAP Prov:MIN NEWTON MD 12/18/16 Furosemide* (Lasix*) 20 Mg Tablet, 20 MG PO DAILY, #10 TAB Prov:MIN NEWTON MD 12/18/16 Reported Medications Chlorthalidone* (Chlorthalidone*) 25 Mg Tablet, 25 MG PO DAILY for 90 Days 01/20/19 Ibuprofen* (Ibuprofen*) 800 Mg Tablet, 800 MG PO Q6H PRN for PAIN LEVEL 7-10 for 30 Days, #90 01/20/19 Metformin Hcl* (Metformin Hcl*) 1,000 Mg Tablet, 1000 MG PO WITH BREAKFAST, #30 TAB 12/18/16 Atenolol* (Atenolol*) 25 Mg Tablet, 25 MG PO DAILY, #30 TAB 12/18/16 Discontinued Scripts Ibuprofen* (Motrin*) 600 Mg Tab, 600 MG PO Q8 for PAIN AND/OR INFLAMMATION, #30 TAB Prov:MIN NEWTON MD 12/18/16 Medications Current Medications IV Flush (NS 3 ml) 3 ml PER PROTOCOL IV ; Start 01/19/19 at 23:30 Ondansetron HCl (Zofran Inj) 4 mg Q6H PRN IV NAUSEA/VOMITING Last administered on 01/20/19at 10:35; Admin Dose 4 MG; Start 01/19/19 at 23:30 Aspirin (Aspirin) 81 mg DAILY PO Last administered on 01/21/19at 09:50; Admin Dose 81 MG; Start 01/20/19 at 09:00 Nitroglycerin (Nitroglycerin (Sl Tab) 0.4 Mg) 1 tab Q5M PRN SL .CHEST PAIN; Start 01/19/19 at 23:30 Acetaminophen (Tylenol Tab) 650 mg Q6H PRN PO .PAIN 1-3 OR TEMP; Start 01/19/19 at 23:30 Heparin Sodium (Porcine) (Heparin (5000 Units/1ml)) 5,000 unit Q12 SC Last administered on 01/21/19at 21:22; Admin Dose 5,000 UNIT; Start 01/20/19 at 09:00 Albuterol/ Ipratropium (Duoneb) 3 ml Q2H RESP THERAPY PRN HHN SHORTNESS OF BREATH; Start 01/19/19 at 23:30 Diagnostic Test (Pha) (Accu-Chek) 1 ea 02 XX ; Start 01/20/19 at 02:00 Insulin Aspart (Novolog Insulin Pen) NOVOLOG *MILD* ALGORITHM WITH MEALS BEDTIME SC Last administered on 01/21/19at 12:54; Admin Dose 2 UNIT; Start 01/20/19 at 07:55 Atenolol (Tenormin) 25 mg DAILY PO Last administered on 01/20/19at 08:15; Admin Dose 25 MG; Start 01/20/19 at 09:00 Docusate Sodium (Colace) 100 mg TID PO Last administered on 01/21/19at 09:50; Admin Dose 100 MG; Start 01/20/19 at 09:00 Metformin HCl (Glucophage) 1,000 mg WITH BREAKFAST PO Last administered on 01/21/19at 09:57; Admin Dose 1,000 MG; Start 01/20/19 at 07:55 Miscellaneous Information 1 ea NOTE XX ; Start 01/20/19 at 02:30 Glucose (Glutose) 15 gm Q15M PRN PO DECREASED GLUCOSE; Start 01/20/19 at 02:30 Glucose (Glutose) 22.5 gm Q15M PRN PO DECREASED GLUCOSE; Start 01/20/19 at 02:3 0 Dextrose (D50w Syringe) 25 ml Q15M PRN IV DECREASED GLUCOSE; Start 01/20/19 at 02:30 Dextrose (D50w Syringe) 50 ml Q15M PRN IV DECREASED GLUCOSE; Start 01/20/19 at 02:30 Glucagon (Glucagen) 1 mg Q15M PRN IM DECREASED GLUCOSE; Start 01/20/19 at 02:30 Glucose (Glutose) 15 gm Q15M PRN BUCCAL DECREASED GLUCOSE; Start 01/20/19 at 02:30 Piperacillin Sod/ Tazobactam Sod 50 ml @ 100 mls/hr Q6 IVPB Last administered on 01/22/19at 12:24; Admin Dose 100 MLS/HR; Start 01/20/19 at 18:00 Acetaminophen (Tylenol Supp) 650 mg Q6H PRN [place] ELEVATED TEMPERATURE Last administered on 01/20/19at 19:08; Admin Dose 650 MG; Start 01/20/19 at 19:00 Norepinephrine 250 ml @ 1.875 mls/ hr TITRATE IV Last administered on 01/21/19at 01:45; Admin Dose 1.875 MLS/HR; Start 01/21/19 at 00:30 Insulin Glargine (Lantus) 15 units DAILY@2000 SC Last administered on 01/21/19at 20:21; Admin Dose 15 UNITS; Start 01/21/19 at 20:00 Assessment/Plan Hospital Course (Demo Recall) 1. Chest pain appears to be on angina most likely GI related has improved now 2. Arrhythmias with episode of wide-complex tachycardia. Currently sinus bradycardia and stable 3. Shock most likely septic 4. HX DM 5. S/P TAVR 6. HX HTN: now hypotensive 7. ? CHOLECYSTITIS. 8. GASTON: REC; Neuro work-up as per neurology. MRI is pending. cont DM control f/u with surgical rec. correct lytes prn Thanks you ELE ANTHONY MD, MD January 22, 2019 16:41
[2019-01-22] MEDS: INSULIN GLARGINE [LANTus] (100 UNITS/ML) SYG SC SCH (19:47)
[2019-01-23] VITALS (27 sets, daily range): BP systolic 123–162; BP diastolic 41–69; PULSE 54–66; RESP 15–19
[2019-01-23] MEDS: ACCU-CHEK XX SCH (02:00)
[2019-01-23] MEDS: PIPER-TAZO 2.25 GM/NS 50 ML IVPB SCH ×3 (05:12→18:10)
[2019-01-23] MEDS: POTASSIUM CHLORIDE 100 ML IVPB SCH ×2 (07:29→10:37)
[2019-01-23] MEDS: INSULIN ASPART [NOVOLOG] 3 ML PEN SC SCH ×4 (07:35→20:55)
[2019-01-23] MEDS: metFORMIN 500 MG TAB PO SCH (07:35)
--- NOTE | 2019-01-23 08:32 | CONS ---
Consult Date/Type/Reason Admit Date/Time January 20, 2019 at 18:00 Initial Consult Date 01/21/19 Type of Consultation: cv Requesting Provider: ELIAS MONTGOMERY Date/Time of Note DATE: 01/23/19 TIME: 08:31 Subjective Interventional cardiology follow-up progress note Subjective: Discussed with the staff. Telemetry was reviewed patient remains sinus rhythm. No chest pain or pressure no palpitation now. She denies abdominal pain to me pt is off levophed Objective: General: no acute distress HEENT: NC/AT. pupils are equal. round. NECK: NO JVD. no stridor. CV: Rate and rhythm systolic murmur; no gallop or rubs. PULM: no wheezing or rhonchi. GI: SOFT, NT, ND, no rebound or guarding Extremity: trace B/L LE edema. no clubbing. neuro: awake and alert, OX3. Psych: calm and pleasant rectal: deferred EKG done on January 19 showed normal sinus rhythm nonspecific ST abnormalities. CT of the abdomen shows 1. Moderately distended gallbladder containing multiple sub centimeter gallstones with gallbladder wall thickening and surrounding inflammatory changes in keeping with acute cholecystitis. No biliary ductal dilatation. 2. Fatty liver. 3. Aortoiliac atherosclerosis without aneurysmal dilatation. 4. Transcatheter aortic valve replacement. Coronary artery vascular calcifications EchoCardiogram was personally reviewed which shows: Normal left ventricular systolic function. Normal left ventricular cavity size. Mild concentric left ventricular hypertrophy. Ejection fraction is visually estimated at 65 %. Abnormal Diastolic Function. E/E'= 17. Aortic Valve IS S/P TAVR. Gradients normal for valve type and size. Aortic valve Max velocity 2.07 m/sec. Max PG 17.00 mmHg. Mean PG 9.00 mmHg. Aortic valve area 1.70 cm2. No aortic regurgitation. Normal appearance and function of the mitral valve with trace physiologic regurgitation. Mild mitral annular calcification. Normal appearance of the tricuspid valve. Estimated peak PA systolic pressure 32 mmHg. There is trace to mild tricuspid regurgitation. Objective Vitals Vital Signs Date Temp Pulse Resp B/P (MAP) Pulse Ox O2 O2 Flow FiO2 Time Delivery Rate 01/23/19 59 17 125/41 95 06:30 (69) 01/23/19 Room Air 06:00 01/23/19 98.6 04:00 01/21/19 2.0 02:00 01/21/19 21 01:48 Intake and Output 01/22/19 01/22/19 01/23/19 1515:00 23:00 07:00 IntakeIntake Total 715 ml 485 ml 160 ml OutputOutput Total 660 ml 780 ml 525 ml BalanceBalance 55 ml -295 ml -365 ml Results/Medications Result Diagram: 01/23/19 0452 01/23/19 0452 Results 24 hrs Laboratory Tests Test 01/22/19 12:28 01/22/19 18:24 01/22/19 19:46 01/22/19 20:55 Bedside Glucose 81 107 115 96 Test 01/23/19 01:50 01/23/19 04:52 Bedside Glucose 82 White Blood Count 9.4 # Red Blood Count 3.64 L Hemoglobin 11.0 L Hematocrit 32.3 L Mean Corpuscular 88.7 Volume Mean Corpuscular 30.2 Hemoglobin Mean Corpuscular 34.1 Hemoglobin Concent Red Cell 13.0 Distribution Width Platelet Count 80 L Mean Platelet Volume 12.2 H Immature 0.900 H Granulocytes % Neutrophils % 85.2 H Lymphocytes % 8.0 L Monocytes % 5.0 Eosinophils % 0.5 Basophils % 0.4 Nucleated Red Blood 0.0 Cells % Immature 0.080 H Granulocytes # Neutrophils # 8.0 H Lymphocytes # 0.8 Monocytes # 0.5 Eosinophils # 0.1 Basophils # 0.0 Nucleated Red Blood 0.0 Cells # Sodium Level 141 Potassium Level 2.9 *L Chloride Level 108 Carbon Dioxide Level 25 Anion Gap 8 Blood Urea Nitrogen 36 H Creatinine 1.98 #H Est Glomerular Filtrat Rate mL/min Glucose Level 74 Calcium Level 8.8 Magnesium Level 2.1 Total Bilirubin 0.9 Direct Bilirubin 0.00 Indirect Bilirubin 0.9 Aspartate Amino 45 Transf (AST/SGOT) Alanine 164 H Aminotransferase (AL T/SGPT) Alkaline Phosphatase 152 H Total Protein 5.9 L Albumin 3.0 L Globulin 2.90 Albumin/Globulin 1.03 Ratio Home Meds Active Scripts Docusate Sodium* (Colace*) 100 Mg Capsule, 100 MG PO TID for CONSTIPATION, #30 CAP Prov:MIN NEWTON MD 12/18/16 Furosemide* (Lasix*) 20 Mg Tablet, 20 MG PO DAILY, #10 TAB Prov:MIN NEWTON MD 12/18/16 Reported Medications Chlorthalidone* (Chlorthalidone*) 25 Mg Tablet, 25 MG PO DAILY for 90 Days 01/20/19 Ibuprofen* (Ibuprofen*) 800 Mg Tablet, 800 MG PO Q6H PRN for PAIN LEVEL 7-10 for 30 Days, #90 01/20/19 Metformin Hcl* (Metformin Hcl*) 1,000 Mg Tablet, 1000 MG PO WITH BREAKFAST, #30 TAB 12/18/16 Atenolol* (Atenolol*) 25 Mg Tablet, 25 MG PO DAILY, #30 TAB 12/18/16 Discontinued Scripts Ibuprofen* (Motrin*) 600 Mg Tab, 600 MG PO Q8 for PAIN AND/OR INFLAMMATION, #30 TAB Prov:MIN NEWTON MD 12/18/16 Medications Current Medications IV Flush (NS 3 ml) 3 ml PER PROTOCOL IV ; Start 01/19/19 at 23:30 Ondansetron HCl (Zofran Inj) 4 mg Q6H PRN IV NAUSEA/VOMITING Last administered on 01/20/19at 10:35; Admin Dose 4 MG; Start 01/19/19 at 23:30 Aspirin (Aspirin) 81 mg DAILY PO Last administered on 01/21/19at 09:50; Admin Dose 81 MG; Start 01/20/19 at 09:00 Nitroglycerin (Nitroglycerin (Sl Tab) 0.4 Mg) 1 tab Q5M PRN SL .CHEST PAIN; Start 01/19/19 at 23:30 Acetaminophen (Tylenol Tab) 650 mg Q6H PRN PO .PAIN 1-3 OR TEMP; Start 01/19/19 at 23:30 Heparin Sodium (Porcine) (Heparin (5000 Units/1ml)) 5,000 unit Q12 SC Last administered on 01/22/19at 20:52; Admin Dose 5,000 UNIT; Start 01/20/19 at 09:00 Albuterol/ Ipratropium (Duoneb) 3 ml Q2H RESP THERAPY PRN HHN SHORTNESS OF BREATH; Start 01/19/19 at 23:30 Diagnostic Test (Pha) (Accu-Chek) 1 ea 02 XX ; Start 01/20/19 at 02:00 Insulin Aspart (Novolog Insulin Pen) NOVOLOG *MILD* ALGORITHM WITH MEALS BEDTIME SC Last administered on 01/21/19at 12:54; Admin Dose 2 UNIT; Start 01/20/19 at 07:55 Atenolol (Tenormin) 25 mg DAILY PO Last administered on 01/20/19at 08:15; Admin Dose 25 MG; Start 01/20/19 at 09:00 Docusate Sodium (Colace) 100 mg TID PO Last administered on 01/22/19at 20:50; Admin Dose 100 MG; Start 01/20/19 at 09:00 Metformin HCl (Glucophage) 1,000 mg WITH BREAKFAST PO Last administered on 01/21/19at 09:57; Admin Dose 1,000 MG; Start 01/20/19 at 07:55 Miscellaneous Information 1 ea NOTE XX ; Start 01/20/19 at 02:30 Glucose (Glutose) 15 gm Q15M PRN PO DECREASED GLUCOSE; Start 01/20/19 at 02:30 Glucose (Glutose) 22.5 gm Q15M PRN PO DECREASED GLUCOSE; Start 01/20/19 at 02:30 Dextrose (D50w Syringe) 25 ml Q15M PRN IV DECREASED GLUCOSE; Start 01/20/19 at 02:30 Dextrose (D50w Syringe) 50 ml Q15M PRN IV DECREASED GLUCOSE; Start 01/20/19 at 02:30 Glucagon (Glucagen) 1 mg Q15M PRN IM DECREASED GLUCOSE; Start 01/20/19 at 02:30 Glucose (Glutose) 15 gm Q15M PRN BUCCAL DECREASED GLUCOSE; Start 01/20/19 at 02:30 Piperacillin Sod/ Tazobactam Sod 50 ml @ 100 mls/hr Q6 IVPB Last administered on 01/23/19at 05:12; Admin Dose 100 MLS/HR; Start 01/20/19 at 18:00 Acetaminophen (Tylenol Supp) 650 mg Q6H PRN [place] ELEVATED TEMPERATURE Last administered on 01/20/19at 19:08; Admin Dose 650 MG; Start 01/20/19 at 19:00 Norepinephrine 250 ml @ 1.875 mls/ hr TITRATE IV Last administered on 01/21/19at 01:45; Admin Dose 1.875 MLS/HR; Start 01/21/19 at 00:30 Insulin Glargine (Lantus) 15 units DAILY@2000 SC Last administered on 01/22/19at 19:47; Admin Dose 15 UNITS; Start 01/21/19 at 20:00 Potassium Chloride 100 ml @ 50 mls/hr Q2H IVPB Last administered on 01/23/19at 07:29; Admin Dose 50 MLS/HR; Start 01/23/19 at 07:00; Stop 01/23/19 at 12:59 Assessment/Plan Hospital Course (Demo Recall) 1. Chest pain appears to be on angina most likely GI related has improved now 2. Arrhythmias with episode of wide-complex tachycardia. Currently sinus bradycardia and stable 3. Shock most likely septic 4. HX DM 5. S/P TAVR 6. HX HTN: now hypotensive 7. ? CHOLECYSTITIS. 8. GASTON: REC; Neuro work-up as per neurology. MRI is pending. cont DM control f/u with surgical rec. Replace electrolytes including potassium as needed correct lytes prn Thanks you ELE ANTHONY MD, MD January 23, 2019 08:32
[2019-01-23] MEDS: ASPIRIN 81 MG TAB PO SCH (08:46)
[2019-01-23] MEDS: DOCUSATE SODIUM 100 MG CAP PO SCH ×3 (08:46→20:54)
--- NOTE | 2019-01-23 08:49 | PN ---
Date/Time of Note Date/Time of Note DATE: 01/23/19 TIME: 08:36 Assessment/Plan Lines/Catheters IV Catheter Type (from [facility]): Peripheral IV [place] in Place (from [facility]): Yes Assessment/Plan Chief Complaint/Hosp Course 1. Abdominal pain with concern for cholecystitis: HIDA noted; abdominal pain currently resolved and tolerating diet without abdominal discomfort -Antibiotics -Pain management -Low-fat low-cholesterol diet okay -will schedule OR 2. Hyperbilirubinemia with transaminitis: Resolved hyperbilirubinemia;? Passed stone -As above 3. Hypotension status post pressor support: Off of pressor support; Arrhythmias with episode of wide-complex tachycardia: Currently sinus rhythm echo: EF 65% -Per cardiology 4. GASTON: -Limit nephrotoxic meds -Renally dose meds -Per renal 5. Normocytic normochromic anemia: -Monitor and transfuse as needed 6. Leukocytosis: Resolved 7. Thrombocytopenia: -Trend -Bleeding precautions 8. Status post code stroke: CT: No acute pathology; ultrasound carotid: Mild to moderate right carotid bulb plaque without stenosis -Neurology follow-up 9. Hypokalemia: -Replete and monitor Thank you. Patient seen and examined in collaboration with Dr. Brian Elliott. Subjective 24 Hr Interval Summary Feels well. No acute abdominal pain. Tolerating diet without abdominal discomfort. Off of pressor support. No chest pain or palpitations. No dysrhythmias. WBC normalized. + Bowel function. No fevers, chills, sob, congested cough, cp, palpitations, christine, dizziness, nausea, vomiting, diarrhea, dysuria. Exam/Review of Systems Vital Signs Vitals Vital Signs Date Temp Pulse Resp B/P (MAP) Pulse Ox O2 O2 Flow FiO2 Time Delivery Rate 01/23/19 55 17 149/54 98 09:00 (85) 01/23/19 99.4 Room Air 08:00 01/21/19 2.0 02:00 01/21/19 21 01:48 Intake and Output 01/22/19 01/22/19 01/23/19 1515:00 23:00 07:00 IntakeIntake Total 715 ml 485 ml 160 ml OutputOutput Total 660 ml 780 ml 525 ml BalanceBalance 55 ml -295 ml -365 ml Exam Constitutional: alert, oriented, well developed Psych: nl mood/affect; No anxiety Head: normocephalic, atraumatic Eyes: nl conjunctiva, EOMI, nl lids, nl sclera ENMT: nl external ears & nose, nl lips & teeth, mucosa pink and moist Neck: supple, non-tender; No jvd Respiratory: normal air movement; No congested cough Cardiovascular: regular rate and rhythm, nl pulses; No edema Gastrointestinal: soft, non-tender; No distended, No rebound or guarding Genitourinary - Female: nl external genitalia Musculoskeletal: nl extremities to inspection Extremities: normal pulses Neurological: nl mental status, nl speech, nl strength Skin: nl turgor; No rash or lesions Lymph: nl lymph nodes Results Result Diagram: 01/23/19 0452 01/23/19 0452 BETTY ROSS NP January 23, 2019 08:48
[2019-01-23] MEDS: HEPARIN 5,000 UNIT/1 ML VIAL SC SCH (08:50)
[2019-01-23] MEDS: ATENOLOL 25 MG TAB PO SCH (09:00)
[2019-01-23] MEDS ORDERED: POTASSIUM CHLORIDE (SR) 20 MEQ TAB PO STA (11:34)
[2019-01-23] MEDS: ONDANSETRON 4 MG INJ IV PRN (12:58)
--- NOTE | 2019-01-23 13:18 | CONS ---
Assessment/Plan Assessment/Plan Assessment/Plan (Daily) 1. acute kidney injury oliguric due to ATN From sepsis 2. Sepsis 2/2 acute cholecystitis 3. abdominal pain/Chest pain due to # 2 4. paroxysmal atrial fibrillation 5. H/O HTN 6. H/o HL 7. H/o DM II Plan: BUN/Cr 36/1.98, K 2.9- KCL replacement has been done, adequate urine output - pt is in post ATN diuresis, Monitor elctrolytes and replace as needed IV abx Zosyn for acute cholecystitis, Renally dose all abx and monitor electrolytes will follow up Consultation Date/Type/Reason Admit Date/Time January 20, 2019 at 18:00 Initial Consult Date 01/21/19 Type of Consult NEPHROLOGY Requesting Provider: ELIAS MONTGOMERY Date/Time of Note DATE: 01/23/19 TIME: 13:18 Exam/Review of Systems Exam Vitals Vital Signs Date Temp Pulse Resp B/P (MAP) Pulse Ox O2 O2 Flow FiO2 Time Delivery Rate 01/23/19 61 17 151/65 95 Room Air 13:00 (93) 01/23/19 99.4 12:00 01/21/19 2.0 02:00 01/21/19 21 01:48 Intake and Output 01/22/19 01/22/19 01/23/19 1515:00 23:00 07:00 IntakeIntake Total 715 ml 485 ml 280 ml OutputOutput Total 660 ml 780 ml 625 ml BalanceBalance 55 ml -295 ml -345 ml Exam Constitutional: alert, oriented Respiratory: clear to auscultation, normal air movement, diminished breath sounds Cardiovascular: regular rate and rhythm, nl pulses Gastrointestinal: soft, non-tender Musculoskeletal: nl extremities to inspection, swelling Extremities: normal pulses Neurological: SOLUTIONS SPECIALIST II-XII intact, nl mental status, nl speech, nl strength Results Result Diagram: 01/23/19 0452 01/23/19451 Results 24hrs Laboratory Tests Test 01/22/19 18:24 01/22/19 19:46 01/22/19 20:55 01/23/19 01:50 Bedside Glucose 107 115 96 82 Test 01/23/19 04:52 01/23/19 08:36 White Blood Count 9.4 # Red Blood Count 3.64 L Hemoglobin 11.0 L Hematocrit 32.3 L Mean Corpuscular 88.7 Volume Mean Corpuscular 30.2 Hemoglobin Mean Corpuscular 34.1 Hemoglobin Concent Red Cell 13.0 Distribution Width Platelet Count 80 L Mean Platelet Volume 12.2 H Immature 0.900 H Granulocytes % Neutrophils % 85.2 H Lymphocytes % 8.0 L Monocytes % 5.0 Eosinophils % 0.5 Basophils % 0.4 Nucleated Red Blood 0.0 Cells % Immature 0.080 H Granulocytes # Neutrophils # 8.0 H Lymphocytes # 0.8 Monocytes # 0.5 Eosinophils # 0.1 Basophils # 0.0 Nucleated Red Blood 0.0 Cells # Sodium Level 141 Potassium Level 2.9 *L Chloride Level 108 Carbon Dioxide Level 25 Anion Gap 8 Blood Urea Nitrogen 36 H Creatinine 1.98 #H Est Glomerular Filtrat Rate mL/min Glucose Level 74 Calcium Level 8.8 Magnesium Level 2.1 Total Bilirubin 0.9 Direct Bilirubin 0.00 Indirect Bilirubin 0.9 Aspartate Amino 45 Transf (AST/SGOT) Alanine 164 H Aminotransferase (AL T/SGPT) Alkaline Phosphatase 152 H Total Protein 5.9 L Albumin 3.0 L Globulin 2.90 Albumin/Globulin 1.03 Ratio Bedside Glucose 71 Medications Medication Current Medications IV Flush (NS 3 ml) 3 ml PER PROTOCOL IV ; Start 01/19/19 at 23:30 Ondansetron HCl (Zofran Inj) 4 mg Q6H PRN IV NAUSEA/VOMITING Last administered on 01/23/19at 12:58; Admin Dose 4 MG; Start 01/19/19 at 23:30 Aspirin (Aspirin) 81 mg DAILY PO Last administered on 01/23/19at 08:46; Admin Dose 81 MG; Start 01/20/19 at 09:00 Nitroglycerin (Nitroglycerin (Sl Tab) 0.4 Mg) 1 tab Q5M PRN SL .CHEST PAIN; Start 01/19/19 at 23:30 Acetaminophen (Tylenol Tab) 650 mg Q6H PRN PO .PAIN 1-3 OR TEMP; Start 01/19/19 at 23:30 Heparin Sodium (Porcine) (Heparin (5000 Units/1ml)) 5,000 unit Q12 SC Last administered on 01/23/19at 08:50; Admin Dose 5,000 UNIT; Start 01/20/19 at 09:00; Status Hold Albuterol/ Ipratropium (Duoneb) 3 ml Q2H RESP THERAPY PRN HHN SHORTNESS OF BREATH; Start 01/19/19 at 23:30 Diagnostic Test (Pha) (Accu-Chek) 1 ea 02 XX ; Start 01/20/19 at 02:00 Insulin Aspart (Novolog Insulin Pen) NOVOLOG *MILD* ALGORITHM WITH MEALS BEDTIME SC Last administered on 01/21/19at 12:54; Admin Dose 2 UNIT; Start 01/20/19 at 07:55 Atenolol (Tenormin) 25 mg DAILY PO Last administered on 01/20/19at 08:15; Admin Dose 25 MG; Start 01/20/19 at 09:00 Docusate Sodium (Colace) 100 mg TID PO Last administered on 01/23/19at 12:24; Admin Dose 100 MG; Start 01/20/19 at 09:00 Metformin HCl (Glucophage) 1,000 mg WITH BREAKFAST PO Last administered on 01/21/19at 09:57; Admin Dose 1,000 MG; Start 01/20/19 at 07:55 Miscellaneous Information 1 ea NOTE XX ; Start 01/20/19 at 02:30 Glucose (Glutose) 15 gm Q15M PRN PO DECREASED GLUCOSE; Start 01/20/19 at 02:30 Glucose (Glutose) 22.5 gm Q15M PRN PO DECREASED GLUCOSE; Start 01/20/19 at 02:30 Dextrose (D50w Syringe) 25 ml Q15M PRN IV DECREASED GLUCOSE; Start 01/20/19 at 02:30 Dextrose (D50w Syringe) 50 ml Q15M PRN IV DECREASED GLUCOSE; Start 01/20/19 at 02:30 Glucagon (Glucagen) 1 mg Q15M PRN IM DECREASED GLUCOSE; Start 01/20/19 at 02:30 Glucose (Glutose) 15 gm Q15M PRN BUCCAL DECREASED GLUCOSE; Start 01/20/19 at 02:30 Piperacillin Sod/ Tazobactam Sod 50 ml @ 100 mls/hr Q6 IVPB Last administered on 01/23/19at 12:24; Admin Dose 100 MLS/HR; Start 01/20/19 at 18:00 Acetaminophen (Tylenol Supp) 650 mg Q6H PRN [place] ELEVATED TEMPERATURE Last administered on 01/20/19at 19:08; Admin Dose 650 MG; Start 01/20/19 at 19:00 Norepinephrine 250 ml @ 1.875 mls/ hr TITRATE IV Last administered on 01/21/19at 01:45; Admin Dose 1.875 MLS/HR; Start 01/21/19 at 00:30 Insulin Glargine (Lantus) 15 units DAILY@2000 SC Last administered on 01/22/19at 19:47; Admin Dose 15 UNITS; Start 01/21/19 at 20:00 ALYSSA MARLEY MD January 23, 2019 13:18
--- NOTE | 2019-01-23 15:35 | PN ---
Date/Time of Note Date/Time of Note DATE: 01/23/19 TIME: 15:34 Assessment/Plan VTE Prophylaxis Risk score (from Ns)>0 risk: 6 SCD applied (from Ns): Yes Pharmacological prophylaxis: heparin Lines/Catheters IV Catheter Type (from Nrsg): Peripheral IV Urinary Cath still in place: Yes Reason Cath still needed: urinary retention Assessment/Plan Hospital Course EXAM: Well appearing no disterss RRR CTAB Soft nt nd wwp no cce A/P: 73 yo female with DMII who presented with RUQ/chest pain found to have acute cholecystitis with elevated bilis and transaminitis who has been treated conservatively with antibiotics. Course complicated by GASTON and atrial fibrillation Cholecystitis with transaminitis: - LFTs and symptosm resolved. Continue medical management with IV abx/ Surgery per Lexi Hypokalemia: - Replete as needed GASTON: - Likley from sepsis, ATN - Trend creatinine A Fib:- - AC and rate control per cardiology Transfer to floor Result Diagram: 01/23/19 0452 01/23/19 0452 Results 24hrs Laboratory Tests Test 01/22/19 18:24 01/22/19 19:46 01/22/19 20:55 01/23/19 01:50 Bedside Glucose 107 115 96 82 Test 01/23/19 04:52 01/23/19 08:36 01/23/19 14:00 White Blood Count 9.4 # Red Blood Count 3.64 L Hemoglobin 11.0 L Hematocrit 32.3 L Mean Corpuscular 88.7 Volume Mean Corpuscular 30.2 Hemoglobin Mean Corpuscular 34.1 Hemoglobin Concent Red Cell 13.0 Distribution Width Platelet Count 80 L Mean Platelet Volume 12.2 H Immature 0.900 H Granulocytes % Neutrophils % 85.2 H Lymphocytes % 8.0 L Monocytes % 5.0 Eosinophils % 0.5 Basophils % 0.4 Nucleated Red Blood 0.0 Cells % Immature 0.080 H Granulocytes # Neutrophils # 8.0 H Lymphocytes # 0.8 Monocytes # 0.5 Eosinophils # 0.1 Basophils # 0.0 Nucleated Red Blood 0.0 Cells # Sodium Level 141 Potassium Level 2.9 *L Chloride Level 108 Carbon Dioxide Level 25 Anion Gap 8 Blood Urea Nitrogen 36 H Creatinine 1.98 #H Est Glomerular Filtrat Rate mL/min Glucose Level 74 Calcium Level 8.8 Magnesium Level 2.1 Total Bilirubin 0.9 Direct Bilirubin 0.00 Indirect Bilirubin 0.9 Aspartate Amino 45 Transf (AST/SGOT) Alanine 164 H Aminotransferase (AL T/SGPT) Alkaline Phosphatase 152 H Total Protein 5.9 L Albumin 3.0 L Globulin 2.90 Albumin/Globulin 1.03 Ratio Bedside Glucose 71 112 Subjective 24 Hr Interval Summary Free Text/Dictation RUQ pain resolved Tolerating PO Exam/Review of Systems Exam Vitals Vital Signs Date Temp Pulse Resp B/P (MAP) Pulse Ox O2 O2 Flow FiO2 Time Delivery Rate 01/23/19 58 17 150/60 98 Room Air 15:00 (90) 01/23/19 99.4 12:00 01/21/19 2.0 02:00 01/21/19 21 01:48 Intake and Output 01/22/19 01/22/19 01/23/19 1515:00 23:00 07:00 IntakeIntake Total 715 ml 485 ml 280 ml OutputOutput Total 660 ml 780 ml 625 ml BalanceBalance 55 ml -295 ml -345 ml Results Results 24hrs Laboratory Tests Test 01/22/19 18:24 01/22/19 19:46 01/22/19 20:55 01/23/19 01:50 Bedside Glucose 107 115 96 82 Test 01/23/19 04:52 01/23/19 08:36 01/23/19 14:00 White Blood Count 9.4 # Red Blood Count 3.64 L Hemoglobin 11.0 L Hematocrit 32.3 L Mean Corpuscular 88.7 Volume Mean Corpuscular 30.2 Hemoglobin Mean Corpuscular 34.1 Hemoglobin Concent Red Cell 13.0 Distribution Width Platelet Count 80 L Mean Platelet Volume 12.2 H Immature 0.900 H Granulocytes % Neutrophils % 85.2 H Lymphocytes % 8.0 L Monocytes % 5.0 Eosinophils % 0.5 Basophils % 0.4 Nucleated Red Blood 0.0 Cells % Immature 0.080 H Granulocytes # Neutrophils # 8.0 H Lymphocytes # 0.8 Monocytes # 0.5 Eosinophils # 0.1 Basophils # 0.0 Nucleated Red Blood 0.0 Cells # Sodium Level 141 Potassium Level 2.9 *L Chloride Level 108 Carbon Dioxide Level 25 Anion Gap 8 Blood Urea Nitrogen 36 H Creatinine 1.98 #H Est Glomerular Filtrat Rate mL/min Glucose Level 74 Calcium Level 8.8 Magnesium Level 2.1 Total Bilirubin 0.9 Direct Bilirubin 0.00 Indirect Bilirubin 0.9 Aspartate Amino 45 Transf (AST/SGOT) Alanine 164 H Aminotransferase (AL T/SGPT) Alkaline Phosphatase 152 H Total Protein 5.9 L Albumin 3.0 L Globulin 2.90 Albumin/Globulin 1.03 Ratio Bedside Glucose 71 112 Medications Medication Current Medications IV Flush (NS 3 ml) 3 ml PER PROTOCOL IV ; Start 01/19/19 at 23:30 Ondansetron HCl (Zofran Inj) 4 mg Q6H PRN IV NAUSEA/VOMITING Last administered on 01/23/19 12:58; Admin Dose 4 MG; Start 01/19/19 at 23:30 Aspirin (Aspirin) 81 mg DAILY PO Last administered on 01/23/19 08:46; Admin Dose 81 MG; Start 01/20/19 at 09:00 Nitroglycerin (Nitroglycerin (Sl Tab) 0.4 Mg) 1 tab Q5M PRN SL .CHEST PAIN; Start 01/19/19 at 23:30 Acetaminophen (Tylenol Tab) 650 mg Q6H PRN PO .PAIN 1-3 OR TEMP; Start 01/19/19 at 23:30 Heparin Sodium (Porcine) (Heparin (5000 Units/1ml)) 5,000 unit Q12 SC Last administered on 01/23/19at 08:50; Admin Dose 5,000 UNIT; Start 01/20/19 at 09:00; Status Hold Albuterol/ Ipratropium (Duoneb) 3 ml Q2H RESP THERAPY PRN HHN SHORTNESS OF BREATH; Start 01/19/19 at 23:30 Diagnostic Test (Pha) (Accu-Chek) 1 ea 02 XX ; Start 01/20/19 at 02:00 Insulin Aspart (Novolog Insulin Pen) NOVOLOG *MILD* ALGORITHM WITH MEALS BEDTIM E SC Last administered on 01/21/19 12:54; Admin Dose 2 UNIT; Start 01/20/19 at 07:55 Atenolol (Tenormin) 25 mg DAILY PO Last administered on 01/20/19 08:15; Admin Dose 25 MG; Start 01/20/19 at 09:00 Docusate Sodium (Colace) 100 mg TID PO Last administered on 01/23/19 12:24; Admin Dose 100 MG; Start 01/20/19 at 09:00 Metformin HCl (Glucophage) 1,000 mg WITH BREAKFAST PO Last administered on 01/21/19at 09:57; Admin Dose 1,000 MG; Start 01/20/19 at 07:55 Miscellaneous Information 1 ea NOTE XX ; Start 01/20/19 at 02:30 Glucose (Glutose) 15 gm Q15M PRN PO DECREASED GLUCOSE; Start 01/20/19 at 02:30 Glucose (Glutose) 22.5 gm Q15M PRN PO DECREASED GLUCOSE; Start 01/20/19 at 02:30 Dextrose (D50w Syringe) 25 ml Q15M PRN IV DECREASED GLUCOSE; Start 01/20/19 at 02:30 Dextrose (D50w Syringe) 50 ml Q15M PRN IV DECREASED GLUCOSE; Start 01/20/19 at 02:30 Glucagon (Glucagen) 1 mg Q15M PRN IM DECREASED GLUCOSE; Start 01/20/19 at 02:30 Glucose (Glutose) 15 gm Q15M PRN BUCCAL DECREASED GLUCOSE; Start 01/20/19 at 02:30 Piperacillin Sod/ Tazobactam Sod 50 ml @ 100 mls/hr Q6 IVPB Last administered on 01/23/19at 12:24; Admin Dose 100 MLS/HR; Start 01/20/19 at 18:00 Acetaminophen (Tylenol Supp) 650 mg Q6H PRN [place] ELEVATED TEMPERATURE Last administered on 01/20/19at 19:08; Admin Dose 650 MG; Start 01/20/19 at 19:00 Norepinephrine 250 ml @ 1.875 mls/ hr TITRATE IV Last administered on 01/21at 01:45; Admin Dose 1.875 MLS/HR; Start 01/21/19 at 00:30 Insulin Glargine (Lantus) 15 units DAILY@2000 SC Last administered on 01/22/19at 19:47; Admin Dose 15 UNITS; Start 01/21/19 at 20:00 KAVITHA MILLAN MD January 23, 2019 15:35
[2019-01-23] MEDS: INSULIN GLARGINE [LANTus] (100 UNITS/ML) SYG SC SCH (20:54)
[2019-01-24] VITALS (11 sets, daily range): BP systolic 137–151; BP diastolic 45–70; PULSE 49–140; RESP 17–20
[2019-01-24] MEDS: PIPER-TAZO 2.25 GM/NS 50 ML IVPB SCH ×4 (00:47→17:40)
[2019-01-24] MEDS: ACCU-CHEK XX SCH (02:00)
[2019-01-24] MEDS: INSULIN ASPART [NOVOLOG] 3 ML PEN SC SCH ×4 (07:29→19:57)
[2019-01-24] MEDS: ASPIRIN 81 MG TAB PO SCH (08:17)
[2019-01-24] MEDS: ATENOLOL 25 MG TAB PO SCH (08:17)
[2019-01-24] MEDS: DOCUSATE SODIUM 100 MG CAP PO SCH ×3 (08:17→19:58)
--- NOTE | 2019-01-24 08:44 | CONS ---
Assessment/Plan Assessment/Plan Assessment/Plan (Daily) 1. acute kidney injury oliguric due to ATN From sepsis 2. Sepsis 2/2 acute cholecystitis 3. abdominal pain/Chest pain due to # 2 4. paroxysmal atrial fibrillation 5. H/O HTN 6. H/o HL 7. H/o DM II Plan: BUN/Cr 28/1.38, K 3.4- KCl 40mEQ PO x 1 dose now, , adequate urine output - pt is in post ATN diuresis, Monitor elctrolytes and replace as needed IV abx Zosyn for acute cholecystitis, Renally dose all abx and monitor electrolytes renal US 01/20/19 showed The right kidney measures 10.9 cm in length. There is normal echogenicity within the right kidney. There is no perinephric fluid collection. No hydronephrosis, mass, or calculus is seen. Follow up with me in clinic in 1 week after discharge will follow up Consultation Date/Type/Reason Admit Date/Time January 20, 2019 at 18:00 Initial Consult Date 01/21/19 Type of Consult NEPHROLOGY Requesting Provider: ELIAS MONTGOMERY Date/Time of Note DATE: 01/24/19 TIME: 08:44 Exam/Review of Systems Exam Vitals Vital Signs Date Temp Pulse Resp B/P (MAP) Pulse Ox O2 O2 Flow FiO2 Time Delivery Rate 01/24/19 59 08:09 01/24/19 99.0 18 151/70 93 Nasal 07:18 (97) Cannula 01/21/19 2.0 02:00 01/21/19 21 01:48 Intake and Output 01/23/19 01/23/19 01/24/19 1515:00 23:00 07:00 IntakeIntake Total 535 ml 200 ml 400 ml OutputOutput Total 600 ml BalanceBalance -65 ml 200 ml 400 ml Exam Constitutional: alert, oriented Respiratory: clear to auscultation, normal air movement, diminished breath sounds Cardiovascular: regular rate and rhythm, nl pulses Gastrointestinal: soft, non-tender Musculoskeletal: nl extremities to inspection, swelling Extremities: normal pulses Neurological: DIRECTOR APPOINTMENT II-XII intact, nl mental status, nl speech, nl strength Results Result Diagram: 01/23/19 3202 01/23/19 0878 Results 24hrs Laboratory Tests Test 01/23/19 14:00 01/23/19 17:19 01/23/19 17:48 01/23/19 20:52 Bedside Glucose 112 99 125 Potassium Level 3.6 Test 01/24/19 07:28 Bedside Glucose 70 Medications Medication Current Medications IV Flush (NS 3 ml) 3 ml PER PROTOCOL IV ; Start 01/19/19 at 23:30 Ondansetron HCl (Zofran Inj) 4 mg Q6H PRN IV NAUSEA/VOMITING Last administered on 01/23/19at 12:58; Admin Dose 4 MG; Start 01/19/19 at 23:30 Aspirin (Aspirin) 81 mg DAILY PO Last administered on 01/24/19 08:17; Admin Dose 81 MG; Start 01/20/19 at 09:00 Nitroglycerin (Nitroglycerin (Sl Tab) 0.4 Mg) 1 tab Q5M PRN SL .CHEST PAIN; Start 01/19/19 at 23:30 Acetaminophen (Tylenol Tab) 650 mg Q6H PRN PO .PAIN 1-3 OR TEMP; Start 01/19/19 at 23:30 Heparin Sodium (Porcine) (Heparin (5000 Units/1ml)) 5,000 unit Q12 SC Last administered on 01/23/19at 08:50; Admin Dose 5,000 UNIT; Start 01/20/19 at 09:00; Status Hold Albuterol/ Ipratropium (Duoneb) 3 ml Q2H RESP THERAPY PRN HHN SHORTNESS OF BREATH; Start 01/19/19 at 23:30 Diagnostic Test (Pha) (Accu-Chek) 1 ea 02 XX ; Start 01/20/19 at 02:00 Insulin Aspart (Novolog Insulin Pen) NOVOLOG *MILD* ALGORITHM WITH MEALS BEDTIME SC Last administered on 01/21/19at 12:54; Admin Dose 2 UNIT; Start 01/20/19 at 07:55 Atenolol (Tenormin) 25 mg DAILY PO Last administered on 01/24/19at 08:17; Admin Dose 25 MG; Start 01/20/19 at 09:00 Docusate Sodium (Colace) 100 mg TID PO Last administered on 01/24/19at 08:17; Admin Dose 100 MG; Start 01/20/19 at 09:00 Miscellaneous Information 1 ea NOTE XX ; Start 01/20/19 at 02:30 Glucose (Glutose) 15 gm Q15M PRN PO DECREASED GLUCOSE; Start 01/20/19 at 02:30 Glucose (Glutose) 22.5 gm Q15M PRN PO DECREASED GLUCOSE; Start 01/20/19 at 02:30 Dextrose (D50w Syringe) 25 ml Q15M PRN IV DECREASED GLUCOSE; Start 01/20/19 at 02:30 Dextrose (D50w Syringe) 50 ml Q15M PRN IV DECREASED GLUCOSE; Start 01/20/19 at 02:30 Glucagon (Glucagen) 1 mg Q15M PRN IM DECREASED GLUCOSE; Start 01/20/19 at 02:30 Glucose (Glutose) 15 gm Q15M PRN BUCCAL DECREASED GLUCOSE; Start 01/20/19 at 02:30 Piperacillin Sod/ Tazobactam Sod 50 ml @ 100 mls/hr Q6 IVPB Last administered on 01/24/19at 05:33; Admin Dose 100 MLS/HR; Start 01/20/19 at 18:00 Acetaminophen (Tylenol Supp) 650 mg Q6H PRN [place] ELEVATED TEMPERATURE Last administered on 01/20/19at 19:08; Admin Dose 650 MG; Start 01/20/19 at 19:00 Norepinephrine 250 ml @ 1.875 mls/ hr TITRATE IV Last administered on 01/21/19at 01:45; Admin Dose 1.875 MLS/HR; Start 01/21/19 at 00:30 Insulin Glargine (Lantus) 15 units DAILY@2000 SC Last administered on 01/23/19at 20:54; Admin Dose 15 UNITS; Start 01/21/19 at 20:00 ALYSSA MARLEY MD January 24, 2019 08:44
--- NOTE | 2019-01-24 09:51 | CONS ---
Consult Date/Type/Reason Admit Date/Time January 20, 2019 at 18:00 Initial Consult Date 01/21/19 Type of Consultation: cv Requesting Provider: ELIAS MONTGOMERY Date/Time of Note DATE: 01/24/19 TIME: 09:51 Subjective Interventional cardiology follow-up progress note Subjective: Discussed with the staff. Telemetry was reviewed patient remains sinus rhythm. No chest pain or pressure no palpitation now. She denies abdominal pain to me pt is on tele now Objective: General: no acute distress HEENT: NC/AT. pupils are equal. round. NECK: NO JVD. no stridor. CV: Rate and rhythm systolic murmur; no gallop or rubs. PULM: no wheezing or rhonchi. GI: SOFT, NT, ND, no rebound or guarding Extremity: trace B/L LE edema. no clubbing. neuro: awake and alert, OX3. Psych: calm and pleasant rectal: deferred EKG done on January 19 showed normal sinus rhythm nonspecific ST abnormalities. CT of the abdomen shows 1. Moderately distended gallbladder containing multiple sub centimeter gallstones with gallbladder wall thickening and surrounding inflammatory changes in keeping with acute cholecystitis. No biliary ductal dilatation. 2. Fatty liver. 3. Aortoiliac atherosclerosis without aneurysmal dilatation. 4. Transcatheter aortic valve replacement. Coronary artery vascular calcifications EchoCardiogram was personally reviewed which shows: Normal left ventricular systolic function. Normal left ventricular cavity size. Mild concentric left ventricular hypertrophy. Ejection fraction is visually estimated at 65 %. Abnormal Diastolic Function. E/E'= 17. Aortic Valve IS S/P TAVR. Gradients normal for valve type and size. Aortic valve Max velocity 2.07 m/sec. Max PG 17.00 mmHg. Mean PG 9.00 mmHg. Aortic valve area 1.70 cm2. No aortic regurgitation. Normal appearance and function of the mitral valve with trace physiologic regurgitation. Mild mitral annular calcification. Normal appearance of the tricuspid valve. Estimated peak PA systolic pressure 32 mmHg. There is trace to mild tricuspid regurgitation. Objective Vitals Vital Signs Date Temp Pulse Resp B/P (MAP) Pulse Ox O2 O2 Flow FiO2 Time Delivery Rate 01/24/19 59 08:09 01/24/19 99.0 18 151/70 93 Nasal 07:18 (97) Cannula 01/21/19 2.0 02:00 01/21/19 21 01:48 Intake and Output 01/23/19 01/23/19 01/24/19 1515:00 23:00 07:00 IntakeIntake Total 535 ml 200 ml 400 ml OutputOutput Total 600 ml BalanceBalance -65 ml 200 ml 400 ml Results/Medications Result Diagram: 01/23/19 0452 01/23/19 1748 Results 24 hrs Laboratory Tests Test 01/23/19 14:00 01/23/19 17:19 01/23/19 17:48 01/23/19 20:52 Bedside Glucose 112 99 125 Potassium Level 3.6 Test 01/24/19 07:28 Bedside Glucose 70 Home Meds Active Scripts Docusate Sodium* (Colace*) 100 Mg Capsule, 100 MG PO TID for CONSTIPATION, #30 CAP Prov:MIN NEWTON MD 12/18/16 Furosemide* (Lasix*) 20 Mg Tablet, 20 MG PO DAILY, #10 TAB Prov:MIN NEWTON MD 12/18/16 Reported Medications Chlorthalidone* (Chlorthalidone*) 25 Mg Tablet, 25 MG PO DAILY for 90 Days 01/20/19 Ibuprofen* (Ibuprofen*) 800 Mg Tablet, 800 MG PO Q6H PRN for PAIN LEVEL 7-10 for 30 Days, #90 01/20/19 Metformin Hcl* (Metformin Hcl*) 1,000 Mg Tablet, 1000 MG PO WITH BREAKFAST, #30 TAB 12/18/16 Atenolol* (Atenolol*) 25 Mg Tablet, 25 MG PO DAILY, #30 TAB 12/18/16 Discontinued Scripts Ibuprofen* (Motrin*) 600 Mg Tab, 600 MG PO Q8 for PAIN AND/OR INFLAMMATION, #30 TAB Prov:MIN NEWTON MD 12/18/16 Medications Current Medications IV Flush (NS 3 ml) 3 ml PER PROTOCOL IV ; Start 01/19/19 at 23:30 Ondansetron HCl (Zofran Inj) 4 mg Q6H PRN IV NAUSEA/VOMITING Last administered on 01/23/19at 12:58; Admin Dose 4 MG; Start 01/19/19 at 23:30 Aspirin (Aspirin) 81 mg DAILY PO Last administered on 01/24/19at 08:17; Admin Dose 81 MG; Start 01/20/19 at 09:00 Nitroglycerin (Nitroglycerin (Sl Tab) 0.4 Mg) 1 tab Q5M PRN SL .CHEST PAIN; Start 01/19/19 at 23:30 Acetaminophen (Tylenol Tab) 650 mg Q6H PRN PO .PAIN 1-3 OR TEMP; Start 01/19/19 at 23:30 Heparin Sodium (Porcine) (Heparin (5000 Units/1ml)) 5,000 unit Q12 SC Last administered on 01/23/19at 08:50; Admin Dose 5,000 UNIT; Start 01/20/19 at 09:00; Status Hold Albuterol/ Ipratropium (Duoneb) 3 ml Q2H RESP THERAPY PRN HHN SHORTNESS OF BREATH; Start 01/19/19 at 23:30 Diagnostic Test (Pha) (Accu-Chek) 1 ea 02 XX ; Start 01/20/19 at 02:00 Insulin Aspart (Novolog Insulin Pen) NOVOLOG *MILD* ALGORITHM WITH MEALS BEDTIME SC Last administered on 01/21/19at 12:54; Admin Dose 2 UNIT; Start 01/20/19 at 07:55 Atenolol (Tenormin) 25 mg DAILY PO Last administered on 01/24/19at 08:17; Admin Dose 25 MG; Start 01/20/19 at 09:00 Docusate Sodium (Colace) 100 mg TID PO Last administered on 01/24/19at 08:17; Ad min Dose 100 MG; Start 01/20/19 at 09:00 Miscellaneous Information 1 ea NOTE XX ; Start 01/20/19 at 02:30 Glucose (Glutose) 15 gm Q15M PRN PO DECREASED GLUCOSE; Start 01/20/19 at 02:30 Glucose (Glutose) 22.5 gm Q15M PRN PO DECREASED GLUCOSE; Start 01/20/19 at 02:30 Dextrose (D50w Syringe) 25 ml Q15M PRN IV DECREASED GLUCOSE; Start 01/20/19 at 02:30 Dextrose (D50w Syringe) 50 ml Q15M PRN IV DECREASED GLUCOSE; Start 01/20/19 at 02:30 Glucagon (Glucagen) 1 mg Q15M PRN IM DECREASED GLUCOSE; Start 01/20/19 at 02:30 Glucose (Glutose) 15 gm Q15M PRN BUCCAL DECREASED GLUCOSE; Start 01/20/19 at 0 2:30 Piperacillin Sod/ Tazobactam Sod 50 ml @ 100 mls/hr Q6 IVPB Last administered on 01/24/19at 05:33; Admin Dose 100 MLS/HR; Start 01/20/19 at 18:00 Acetaminophen (Tylenol Supp) 650 mg Q6H PRN [place] ELEVATED TEMPERATURE Last administered on 01/20/19at 19:08; Admin Dose 650 MG; Start 01/20/19 at 19:00 Norepinephrine 250 ml @ 1.875 mls/ hr TITRATE IV Last administered on 01/21/19at 01:45; Admin Dose 1.875 MLS/HR; Start 01/21/19 at 00:30 Insulin Glargine (Lantus) 15 units DAILY@2000 SC Last administered on 01/23/19at 20:54; Admin Dose 15 UNITS; Start 01/21/19 at 20:00 Assessment/Plan Hospital Course (Demo Recall) 1. Chest pain appears to be on angina most likely GI related has improved now 2. Arrhythmias with episode of wide-complex tachycardia. Currently sinus bradycardia and stable 3. Shock most likely septic 4. HX DM 5. S/P TAVR 6. HX HTN: now hypotensive 7. ? CHOLECYSTITIS. 8. GASTON: REC; Neuro work-up as per neurology. cont DM control f/u with surgical rec. Replace electrolytes including potassium as needed f/u GI and surgery rec correct lytes prn Thanks you ELE ANTHONY MD, MD January 24, 2019 09:51
[2019-01-24] MEDS ORDERED: POTASSIUM CHLORIDE (SR) 20 MEQ TAB PO STA (14:14)
--- NOTE | 2019-01-24 15:35 | PN ---
Date/Time of Note Date/Time of Note DATE: 01/24/19 TIME: 15:34 Assessment/Plan VTE Prophylaxis Risk score (from Ns)>0 risk: 3 SCD applied (from Ns): Yes Pharmacological prophylaxis: heparin Lines/Catheters IV Catheter Type (from Nrs): Peripheral IV Urinary Cath still in place: No Assessment/Plan Hospital Course EXAM: Well appearing no disterss RRR CTAB Soft nt nd wwp no cce A/P: 73 yo female with DMII who presented with RUQ/chest pain found to have acute cholecystitis with elevated bilis and transaminitis who has been treated conservatively with antibiotics. Course complicated by GASTON and atrial fibrillation Cholecystitis with transaminitis: - LFTs and symptosm resolved. Continue medical management with IV abx/ Surgery per Lexi Hypokalemia: - Replete as needed GASTON: - Likley from sepsis, ATN - Trend creatinine Wide complex tachycardia: - rate control per cardiology Transfer to floor Result Diagram: 01/23/19 0452 01/24/19 1037 Results 24hrs Laboratory Tests Test 01/23/19 17:19 01/23/19 17:48 01/23/19 20:52 01/24/19 07:28 Bedside Glucose 99 125 70 Potassium Level 3.6 Test 01/24/19 10:37 01/24/19 11:56 Sodium Level 138 Potassium Level 3.4 L Chloride Level 106 Carbon Dioxide Level 26 Anion Gap 6 Blood Urea Nitrogen 28 H Creatinine 1.38 H Est Glomerular Filtrat Rate mL/min Glucose Level 109 Calcium Level 8.7 Total Bilirubin 0.8 Direct Bilirubin 0.00 Indirect Bilirubin 0.8 Aspartate Amino 24 Transf (AST/SGOT) Alanine 94 H Aminotransferase (AL T/SGPT) Alkaline Phosphatase 156 H Total Protein 6.4 Albumin 3.1 L Globulin 3.30 H Albumin/Globulin 0.93 Ratio Bedside Glucose 90 Subjective 24 Hr Interval Summary Free Text/Dictation Doing well, no complaints Awaiting surgeyr Exam/Review of Systems Exam Vitals Vital Signs Date Temp Pulse Resp B/P (MAP) Pulse Ox O2 O2 Flow FiO2 Time Delivery Rate 01/24/19 98.2 55 20 149/67 92 Room Air 15:10 (94) 01/21/19 2.0 02:00 01/21/19 21 01:48 Intake and Output 01/23/19 01/23/19 01/24/19 1515:00 23:00 07:00 IntakeIntake Total 535 ml 200 ml 400 ml OutputOutput Total 600 ml BalanceBalance -65 ml 200 ml 400 ml Results Results 24hrs Laboratory Tests Test 01/23/19 17:19 01/23/19 17:48 01/23/19 20:52 01/24/19 07:28 Bedside Glucose 99 125 70 Potassium Level 3.6 Test 01/24/19 10:37 01/24/19 11:56 Sodium Level 138 Potassium Level 3.4 L Chloride Level 106 Carbon Dioxide Level 26 Anion Gap 6 Blood Urea Nitrogen 28 H Creatinine 1.38 H Est Glomerular Filtrat Rate mL/min Glucose Level 109 Calcium Level 8.7 Total Bilirubin 0.8 Direct Bilirubin 0.00 Indirect Bilirubin 0.8 Aspartate Amino 24 Transf (AST/SGOT) Alanine 94 H Aminotransferase (AL T/SGPT) Alkaline Phosphatase 156 H Total Protein 6.4 Albumin 3.1 L Globulin 3.30 H Albumin/Globulin 0.93 Ratio Bedside Glucose 90 Medications Medication Current Medications IV Flush (NS 3 ml) 3 ml PER PROTOCOL IV ; Start 01/19/19 at 23:30 Ondansetron HCl (Zofran Inj) 4 mg Q6H PRN IV NAUSEA/VOMITING Last administered on 01/23/19at 12:58; Admin Dose 4 MG; Start 01/19/19 at 23:30 Aspirin (Aspirin) 81 mg DAILY PO Last administered on 01/24/19at 08:17; Admin Dose 81 MG; Start 01/20/19 at 09:00 Nitroglycerin (Nitroglycerin (Sl Tab) 0.4 Mg) 1 tab Q5M PRN SL .CHEST PAIN; Start 01/19/19 at 23:30 Acetaminophen (Tylenol Tab) 650 mg Q6H PRN PO .PAIN 1-3 OR TEMP; Start 01/19/19 at 23:30 Heparin Sodium (Porcine) (Heparin (5000 Units/1ml)) 5,000 unit Q12 SC Last administered on 01/23/19at 08:50; Admin Dose 5,000 UNIT; Start 01/20/19 at 09:00; Status Hold Albuterol/ Ipratropium (Duoneb) 3 ml Q2H RESP THERAPY PRN HHN SHORTNESS OF BREATH; Start 01/19/19 at 23:30 Diagnostic Test (Pha) (Accu-Chek) 1 ea 02 XX ; Start 01/20/19 at 02:00 Insulin Aspart (Novolog Insulin Pen) NOVOLOG *MILD* ALGORITHM WITH MEALS BEDTI ME SC Last administered on 01/21/19at 12:54; Admin Dose 2 UNIT; Start 01/20/19 at 07:55 Atenolol (Tenormin) 25 mg DAILY PO Last administered on 01/24/19at 08:17; Admin Dose 25 MG; Start 01/20/19 at 09:00 Docusate Sodium (Colace) 100 mg TID PO Last administered on 01/24/19at 14:05; Admin Dose 100 MG; Start 01/20/19 at 09:00 Miscellaneous Information 1 ea NOTE XX ; Start 01/20/19 at 02:30 Glucose (Glutose) 15 gm Q15M PRN PO DECREASED GLUCOSE; Start 01/20/19 at 02:30 Glucose (Glutose) 22.5 gm Q15M PRN PO DECREASED GLUCOSE; Start 01/20/19 at 02:30 Dextrose (D50w Syringe) 25 ml Q15M PRN IV DECREASED GLUCOSE; Start 01/20/19 at 02:30 Dextrose (D50w Syringe) 50 ml Q15M PRN IV DECREASED GLUCOSE; Start 01/20/19 at 02:30 Glucagon (Glucagen) 1 mg Q15M PRN IM DECREASED GLUCOSE; Start 01/20/19 at 02:30 Glucose (Glutose) 15 gm Q15M PRN BUCCAL DECREASED GLUCOSE; Start 01/20/19 at 02:30 Piperacillin Sod/ Tazobactam Sod 50 ml @ 100 mls/hr Q6 IVPB Last administered on 01/24/19at 14:05; Admin Dose 100 MLS/HR; Start 01/20/19 at 18:00 Acetaminophen (Tylenol Supp) 650 mg Q6H PRN [place] ELEVATED TEMPERATURE Last administered on 01/20/19at 19:08; Admin Dose 650 MG; Start 01/20/19 at 19:00 Norepinephrine 250 ml @ 1.875 mls/ hr TITRATE IV Last administered on 01/21/19at 01:45; Admin Dose 1.875 MLS/HR; Start 01/21/19 at 00:30 Insulin Glargine (Lantus) 15 units DAILY@2000 SC Last administered on 01/23/19at 20:54; Admin Dose 15 UNITS; Start 01/21/19 at 20:00 KAVITHA MILLAN MD January 24, 2019 15:35
[2019-01-24] MEDS: INSULIN GLARGINE [LANTus] (100 UNITS/ML) SYG SC SCH (20:17)
[2019-01-25] VITALS (8 sets, daily range): BP systolic 138–151; BP diastolic 64–70; PULSE 51–63; RESP 17–19
[2019-01-25] MEDS: PIPER-TAZO 2.25 GM/NS 50 ML IVPB SCH ×3 (01:16→12:13)
--- NOTE | 2019-01-25 01:25 | PN ---
Date/Time of Note Date/Time of Note DATE: 01/22/19 TIME: 21:22 Assessment/Plan Lines/Catheters IV Catheter Type (from [facility]): Peripheral IV Duvall in Place (from [facility]): No Assessment/Plan Chief Complaint/Hosp Course 1. Abdominal pain with concern for cholecystitis: HIDA noted; abdominal pain currently resolved and tolerating diet without abdominal discomfort. No fevers. Labs improved. -Antibiotics -Pain management -Low-fat low-cholesterol diet okay -outpt vs inpt sx 2. Hyperbilirubinemia with transaminitis: Resolved hyperbilirubinemia;? Passed stone -As above 3. Hypotension status post pressor support: Off of pressor support; Arrhythmias with episode of wide-complex tachycardia: Currently sinus rhythm echo: EF 65% -Per cardiology 4. GASTON: -Limit nephrotoxic meds -Renally dose meds -Per renal 5. Normocytic normochromic anemia: -Monitor and transfuse as needed 6. Leukocytosis: Resolved 7. Thrombocytopenia: -Trend -Bleeding precautions 8. Status post code stroke: CT: No acute pathology; ultrasound carotid: Mild to moderate right carotid bulb plaque without stenosis -Neurology follow-up Thank you, Late entry 01/22 Subjective 24 Hr Interval Summary No acute abdominal pain. Tolerating diet without abdominal discomfort. Off of pressor support. No chest pain or palpitations. No dysrhythmias. WBC normal ized. + Bowel function. No fevers, chills, sob, congested cough, cp, palpitations, christine, dizziness, nausea, vomiting, diarrhea, dysuria. Exam/Review of Systems Vital Signs Vitals Vital Signs Date Temp Pulse Resp B/P (MAP) Pulse Ox O2 O2 Flow FiO2 Time Delivery Rate 01/25/19 98.6 59 17 141/70 96 00:20 (93) 01/24/19 Room Air 15:10 Intake and Output 01/24/19 01/24/19 01/25/19 1515:00 23:00 07:00 IntakeIntake Total 50 ml BalanceBalance 50 ml Exam Free Text/Dictation Constitutional: alert, oriented, well developed Psych: nl mood/affect; No anxiety Head: normocephalic, atraumatic Eyes: nl conjunctiva, EOMI, nl lids, nl sclera ENMT: nl external ears & nose, nl lips & teeth, mucosa pink and moist Neck: supple, non-tender; No jvd Respiratory: normal air movement; No congested cough Cardiovascular: regular rate and rhythm, nl pulses; No edema Gastrointestinal: soft, non-tender; No distended, No rebound or guarding Genitourinary - Female: nl external genitalia Musculoskeletal: nl extremities to inspection Extremities: normal pulses Neurological: nl mental status, nl speech, nl strength Skin: nl turgor; No rash or lesions Lymph: nl lymph nodes Results Result Diagram: 01/23/19 0452 01/24/19 1037 LALITHA HERMAN MD January 25, 2019 01:25
--- NOTE | 2019-01-25 01:27 | PN ---
Date/Time of Note Date/Time of Note DATE: 01/24/19 TIME: 21:25 Assessment/Plan Lines/Catheters IV Catheter Type (from [facility]): Peripheral IV Duvall in Place (from [facility]): No Assessment/Plan Chief Complaint/Hosp Course 1. Abdominal pain with concern for cholecystitis: HIDA noted; abdominal pain currently resolved and tolerating diet without abdominal discomfort. No fevers. Labs improved. -Antibiotics -Pain management -Low-fat low-cholesterol diet okay -Had long d/w patient and per her decision, we will follow up as outpt for elective surgery. 2. Hyperbilirubinemia with transaminitis: Resolved hyperbilirubinemia;? Passed stone -As above 3. Hypotension status post pressor support: Off of pressor support; Arrhythmias with episode of wide-complex tachycardia: Currently sinus rhythm echo: EF 65% -Per cardiology 4. GASTON: -Limit nephrotoxic meds -Renally dose meds -Per renal 5. Normocytic normochromic anemia: -Monitor and transfuse as needed 6. Leukocytosis: Resolved 7. Thrombocytopenia: -Trend -Bleeding precautions 8. Status post code stroke: CT: No acute pathology; ultrasound carotid: Mild to moderate right carotid bulb plaque without stenosis -Neurology follow-up Thank you, Late entry 01/24 Subjective 24 Hr Interval Summary No acute abdominal pain. Tolerating diet without abdominal discomfort. No chest pain or palpitations. No dysrhythmias. WBC normalized. + Bowel function. No fevers, chills, sob, congested cough, cp, palpitations, christine, dizziness, nausea, vomiting, diarrhea, dysuria. Patient not eager for surgery. Exam/Review of Systems Vital Signs Vitals Vital Signs Date Temp Pulse Resp B/P (MAP) Pulse Ox O2 O2 Flow FiO2 Time Delivery Rate 01/25/19 98.6 59 17 141/70 96 00:20 (93) 01/24/19 Room Air 15:10 Intake and Output 01/24/19 01/24/19 01/25/19 1515:00 23:00 07:00 IntakeIntake Total 50 ml BalanceBalance 50 ml Exam Free Text/Dictation Constitutional: alert, oriented, well developed Psych: nl mood/affect; No anxiety Head: normocephalic, atraumatic Eyes: nl conjunctiva, EOMI, nl lids, nl sclera ENMT: nl external ears & nose, nl lips & teeth, mucosa pink and moist Neck: supple, non-tender; No jvd Respiratory: normal air movement; No congested cough Cardiovascular: regular rate and rhythm, nl pulses; No edema Gastrointestinal: soft, non-tender; No distended, No rebound or guarding Genitourinary - Female: nl external genitalia Musculoskeletal: nl extremities to inspection Extremities: normal pulses Neurological: nl mental status, nl speech, nl strength Skin: nl turgor; No rash or lesions Lymph: nl lymph nodes Results Result Diagram: 01/23/19 0452 01/24/19 1037 LALITHA HERMAN MD January 25, 2019 01:27
[2019-01-25] MEDS: ACCU-CHEK XX SCH (03:07)
[2019-01-25] MEDS: INSULIN ASPART [NOVOLOG] 3 ML PEN SC SCH ×2 (07:48→11:45)
[2019-01-25] MEDS: DOCUSATE SODIUM 100 MG CAP PO SCH ×2 (08:10→12:13)
[2019-01-25] MEDS: ASPIRIN 81 MG TAB PO SCH (08:10)
[2019-01-25] MEDS: ATENOLOL 25 MG TAB PO SCH (08:11)
--- NOTE | 2019-01-25 09:23 | CONS ---
Consult Date/Type/Reason Admit Date/Time January 20, 2019 at 18:00 Initial Consult Date 01/21/19 Type of Consultation: cv Requesting Provider: ELIAS MONTGOMERY Date/Time of Note DATE: 01/25/19 TIME: 09:21 Subjective Interventional cardiology follow-up progress note Subjective: Discussed with the staff. Telemetry was reviewed patient remains sinus rhythm. No chest pain or pressure no palpitation now. She denies abdominal pain to me pt is on tele now Objective: General: no acute distress HEENT: NC/AT. pupils are equal. round. NECK: NO JVD. no stridor. CV: Rate and rhythm systolic murmur; no gallop or rubs. PULM: no wheezing or rhonchi. GI: SOFT, NT, ND, no rebound or guarding Extremity: trace B/L LE edema. no clubbing. neuro: awake and alert, OX3. Psych: calm and pleasant rectal: deferred EKG done on January 19 showed normal sinus rhythm nonspecific ST abnormalities. CT of the abdomen shows 1. Moderately distended gallbladder containing multiple sub centimeter gallstones with gallbladder wall thickening and surrounding inflammatory changes in keeping with acute cholecystitis. No biliary ductal dilatation. 2. Fatty liver. 3. Aortoiliac atherosclerosis without aneurysmal dilatation. 4. Transcatheter aortic valve replacement. Coronary artery vascular calcifications EchoCardiogram was personally reviewed which shows: Normal left ventricular systolic function. Normal left ventricular cavity size. Mild concentric left ventricular hypertrophy. Ejection fraction is visually estimated at 65 %. Abnormal Diastolic Function. E/E'= 17. Aortic Valve IS S/P TAVR. Gradients normal for valve type and size. Aortic valve Max velocity 2.07 m/sec. Max PG 17.00 mmHg. Mean PG 9.00 mmHg. Aortic valve area 1.70 cm2. No aortic regurgitation. Normal appearance and function of the mitral valve with trace physiologic regurgitation. Mild mitral annular calcification. Normal appearance of the tricuspid valve. Estimated peak PA systolic pressure 32 mmHg. There is trace to mild tricuspid regurgitation. Objective Vitals Vital Signs Date Temp Pulse Resp B/P (MAP) Pulse Ox O2 O2 Flow FiO2 Time Delivery Rate 01/25/19 97.6 56 19 140/65 95 07:16 (90) 01/24/19 Room Air 15:10 Intake and Output 01/24/19 01/24/19 01/25/19 1515:00 23:00 07:00 IntakeIntake Total 50 ml 450 ml BalanceBalance 50 ml 450 ml Results/Medications Result Diagram: 01/23/19 0452 01/24/19 1037 Results 24 hrs Laboratory Tests Test 01/24/19 10:37 01/24/19 11:56 01/24/19 17:36 01/24/19 19:57 Sodium Level 138 Potassium Level 3.4 L Chloride Level 106 Carbon Dioxide Level 26 Anion Gap 6 Blood Urea Nitrogen 28 H Creatinine 1.38 H Est Glomerular Filtrat Rate mL/min Glucose Level 109 Calcium Level 8.7 Total Bilirubin 0.8 Direct Bilirubin 0.00 Indirect Bilirubin 0.8 Aspartate Amino 24 Transf (AST/SGOT) Alanine 94 H Aminotransferase (AL T/SGPT) Alkaline Phosphatase 156 H Total Protein 6.4 Albumin 3.1 L Globulin 3.30 H Albumin/Globulin 0.93 Ratio Bedside Glucose 90 131 168 Test 01/25/19 03:01 01/25/19 07:47 Bedside Glucose 91 91 Home Meds Active Scripts Docusate Sodium* (Colace*) 100 Mg Capsule, 100 MG PO TID for CONSTIPATION, #30 CAP Prov:MIN NEWTON MD 12/18/16 Furosemide* (Lasix*) 20 Mg Tablet, 20 MG PO DAILY, #10 TAB Prov:MIN NEWTON MD 12/18/16 Reported Medications Chlorthalidone* (Chlorthalidone*) 25 Mg Tablet, 25 MG PO DAILY for 90 Days 01/20/19 Ibuprofen* (Ibuprofen*) 800 Mg Tablet, 800 MG PO Q6H PRN for PAIN LEVEL 7-10 for 30 Days, #90 01/20/19 Metformin Hcl* (Metformin Hcl*) 1,000 Mg Tablet, 1000 MG PO WITH BREAKFAST, #30 TAB 12/18/16 Atenolol* (Atenolol*) 25 Mg Tablet, 25 MG PO DAILY, #30 TAB 12/18/16 Discontinued Scripts Ibuprofen* (Motrin*) 600 Mg Tab, 600 MG PO Q8 for PAIN AND/OR INFLAMMATION, #30 TAB Prov:MIN NEWTON MD 12/18/16 Medications Current Medications IV Flush (NS 3 ml) 3 ml PER PROTOCOL IV ; Start 01/19/19 at 23:30 Ondansetron HCl (Zofran Inj) 4 mg Q6H PRN IV NAUSEA/VOMITING Last administered on 01/23/19 12:58; Admin Dose 4 MG; Start 01/19/19 at 23:30 Aspirin (Aspirin) 81 mg DAILY PO Last administered on 01/25/19 08:10; Admin Dose 81 MG; Start 01/20/19 at 09:00 Nitroglycerin (Nitroglycerin (Sl Tab) 0.4 Mg) 1 tab Q5M PRN SL .CHEST PAIN; Start 01/19/19 at 23:30 Acetaminophen (Tylenol Tab) 650 mg Q6H PRN PO .PAIN 1-3 OR TEMP; Start 01/19/19 at 23:30 Heparin Sodium (Porcine) (Heparin (5000 Units/1ml)) 5,000 unit Q12 SC Last administered on 01/23/19 08:50; Admin Dose 5,000 UNIT; Start 01/20/19 at 09:00; Status Hold Albuterol/ Ipratropium (Duoneb) 3 ml Q2H RESP THERAPY PRN HHN SHORTNESS OF BREATH; Start 01/19/19 at 23:30 Diagnostic Test (Pha) (Accu-Chek) 1 ea 02 XX Last administered on 01/25/19at 03:07; Admin Dose 1 EA; Start 01/20/19 at 02:00 Insulin Aspart (Novolog Insulin Pen) NOVOLOG *MILD* ALGORITHM WITH MEALS BEDTIME SC Last administered on 01/21/19at 12:54; Admin Dose 2 UNIT; Start 01/20/19 at 07:55 Atenolol (Tenormin) 25 mg DAILY PO Last administered on 01/25/19 08:11; Admin Dose 25 MG; Start 01/20/19 at 09:00 Docusate Sodium (Colace) 100 mg TID PO Last administered on 01/25/19 08:10; Admin Dose 100 MG; Start 01/20/19 at 09:00 Miscellaneous Information 1 ea NOTE XX ; Start 01/20/19 at 02:30 Glucose (Glutose) 15 gm Q15M PRN PO DECREASED GLUCOSE; Start 01/20/19 at 02:30 Glucose (Glutose) 22.5 gm Q15M PRN PO DECREASED GLUCOSE; Start 01/20/19 at 02:30 Dextrose (D50w Syringe) 25 ml Q15M PRN IV DECREASED GLUCOSE; Start 01/20/19 at 02:30 Dextrose (D50w Syringe) 50 ml Q15M PRN IV DECREASED GLUCOSE; Start 01/20/19 at 02:30 Glucagon (Glucagen) 1 mg Q15M PRN IM DECREASED GLUCOSE; Start 01/20/19 at 02:30 Glucose (Glutose) 15 gm Q15M PRN BUCCAL DECREASED GLUCOSE; Start 01/20/19 at 02:30 Piperacillin Sod/ Tazobactam Sod 50 ml @ 100 mls/hr Q6 IVPB Last administered on 01/25/19at 06:36; Admin Dose 100 MLS/HR; Start 01/20/19 at 18:00 Acetaminophen (Tylenol Supp) 650 mg Q6H PRN [place] ELEVATED TEMPERATURE Last administered on 01/20/19at 19:08; Admin Dose 650 MG; Start 01/20/19 at 19:00 Norepinephrine 250 ml @ 1.875 mls/ hr TITRATE IV Last administered on 01/21/19at 01:45; Admin Dose 1.875 MLS/HR; Start 01/21/19 at 00:30 Insulin Glargine (Lantus) 15 units DAILY@2000 SC Last administered on 01/24/19at 20:17; Admin Dose 15 UNITS; Start 01/21/19 at 20:00 Assessment/Plan Hospital Course (Demo Recall) 1. Chest pain: resolved and appears to be non anginal most likely GI related has improved now 2. Arrhythmias with episode of wide-complex tachycardia. Currently sinus bradycardia and stable 3. Shock most likely septic 4. HX DM 5. S/P TAVR 6. HX HTN: now hypotensive 7. ? CHOLECYSTITIS. 8. GASTON: REC; Neuro work-up as per neurology. cont DM control f/u with surgical rec. Replace electrolytes including potassium as needed f/u GI and surgery rec Patient was advised to follow-up with me in about 1 to 2 weeks correct lytes prn Thanks you ELE CAMPOS,ELE HURLEY January 25, 2019 09:23
[2019-01-25] MEDS ORDERED: LEVO750T8 PO (10:53)
--- NOTE | 2019-01-25 11:17 | PDOCDIS ---
Discharge Instructions DIAGNOSIS Discharge Diagnosis Cholecystitis GASTON Sepsis CONDITION [id number] Patient Condition: [id number] Stable FOLLOW UP/APPOINTMENTS Follow-up Plan Make an appointment to see Dr Juventino Elliott in clinic to discuss gall bladder surgery. His number is Return to the hosptial if you have any concerning symptoms Take your antibiotics as prescribed KAVITHA MILLAN MD January 25, 2019 11:17
--- NOTE | 2019-01-25 12:39 | DS ---
Date/Time of Note Date/Time of Note DATE: 01/25/19 TIME: 12:38 Discharge Summary Admission/Discharge Info Admit Date/Time January 20, 2019 at 18:00 Discharge Date/Time Discharge Diagnosis Cholecystitis GASTON Sepsis Patient Condition: Stable Hospital Course Kvng was admitted with abdmoinal pain and sepsis. Imaging revealed cholecystitis. She was treated with IV antibiotics for this. Surgery evaluated her and recommended conservative management. Her symptoms resolved and LFTs resolved to baseline. She also suffered acute kidney injury which resolved. She will follow up [facility] Dr Elliott as an outaptient for consideration of cholecystectomy Home Meds Active Scripts Levofloxacin* (Levofloxacin*) 750 Mg Tablet, 750 MG PO DAILY for 4 Days, #4 TAB Prov:KAVITHA MILLAN MD 01/25/19 Docusate Sodium* (Colace*) 100 Mg Capsule, 100 MG PO TID for CONSTIPATION, #30 CAP Prov:MIN NEWTON MD 12/18/16 Reported Medications Ibuprofen* (Ibuprofen*) 800 Mg Tablet, 800 MG PO Q6H PRN for PAIN LEVEL 7-10 for 30 Days, #90 01/20/19 Metformin Hcl* (Metformin Hcl*) 1,000 Mg Tablet, 1000 MG PO WITH BREAKFAST, #30 TAB 12/18/16 Atenolol* (Atenolol*) 25 Mg Tablet, 25 MG PO DAILY, #30 TAB 12/18/16 Discontinued Reported Medications Chlorthalidone* (Chlorthalidone*) 25 Mg Tablet, 25 MG PO DAILY for 90 Days 01/20/19 Discontinued Scripts Furosemide* (Lasix*) 20 Mg Tablet, 20 MG PO DAILY, #10 TAB Prov:MIN NEWTON MD 12/18/16 Ibuprofen* (Motrin*) 600 Mg Tab, 600 MG PO Q8 for PAIN AND/OR INFLAMMATION, #30 TAB Prov:MIN NEWTON MD 12/18/16 Follow-up Plan Make an appointment to see Dr Juventino Elliott in clinic to discuss gall bladder surgery. His number is Return to the hosptial if you have any concerning symptoms Take your antibiotics as prescribed Primary Care Provider [facility] Pending Labs Laboratory Tests Test 01/24/19 17:36 01/24/19 19:57 01/25/19 03:01 01/25/19 07:47 Bedside 131 168 91 91 Glucose mg/dL (70-220) mg/dL (70-220) mg/dL (70-220) mg/dL (70-220) Test 01/25/19 11:38 Bedside 141 Glucose mg/dL (70-220) KAVITHA MILLAN MD January 25, 2019 12:39
--- NOTE | 2019-01-25 15:21 | CONS ---
Assessment/Plan Assessment/Plan Assessment/Plan (Daily) 1. acute kidney injury oliguric due to ATN From sepsis 2. Sepsis 2/2 acute cholecystitis 3. abdominal pain/Chest pain due to # 2 4. paroxysmal atrial fibrillation 5. H/O HTN 6. H/o HL 7. H/o DM II Plan: BUN/Cr 28/1.38, K 3.4- adequate urine output, BP stable, IV abx Zosyn for acute cholecystitis, Renally dose all abx and monitor electrolytes renal US 01/20/19 showed The right kidney measures 10.9 cm in length. There is normal echogenicity within the right kidney. There is no perinephric fluid collection. No hydronephrosis, mass, or calculus is seen. Follow up with me in clinic in 1 week after discharge will follow up Consultation Date/Type/Reason Admit Date/Time January 20, 2019 at 18:00 Initial Consult Date 01/21/19 Type of Consult NEPHROLOGY Requesting Provider: ELIAS MONTGOMERY Date/Time of Note DATE: 01/25/19 TIME: 15:21 Exam/Review of Systems Exam Vitals Vital Signs Date Temp Pulse Resp B/P (MAP) Pulse Ox O2 O2 Flow FiO2 Time Delivery Rate 01/25/19 51 12:00 01/25/19 98.0 19 151/67 96 11:13 (95) 01/24/19 Room Air 15:10 Intake and Output 01/24/19 01/24/19 01/25/19 1515:00 23:00 07:00 IntakeIntake Total 50 ml 450 ml BalanceBalance 50 ml 450 ml Exam Constitutional: alert, oriented Respiratory: clear to auscultation, normal air movement, diminished breath sounds Cardiovascular: regular rate and rhythm, nl pulses Gastrointestinal: soft, non-tender Musculoskeletal: nl extremities to inspection, swelling Extremities: normal pulses Neurological: [employer] II-XII intact, nl mental status, nl speech, nl strength Results Result Diagram: 01/23/19 0452 01/24/19 1037 Results 24hrs Laboratory Tests Test 01/24/19 17:36 01/24/19 19:57 01/25/19 03:01 01/25/19 07:47 Bedside Glucose 131 168 91 91 Test 01/25/19 11:38 Bedside Glucose 141 Medications Medication Current Medications IV Flush (NS 3 ml) 3 ml PER PROTOCOL IV ; Start 5/10/19 at 23:30 Ondansetron HCl (Zofran Inj) 4 mg Q6H PRN IV NAUSEA/VOMITING Last administered on 01/23/19at 12:58; Admin Dose 4 MG; Start 01/19/19 at 23:30 Aspirin (Aspirin) 81 mg DAILY PO Last administered on 01/25/19at 08:10; Admin Dose 81 MG; Start 01/20/19 at 09:00 Nitroglycerin (Nitroglycerin (Sl Tab) 0.4 Mg) 1 tab Q5M PRN SL .CHEST PAIN; Start 01/19/19 at 23:30 Acetaminophen (Tylenol Tab) 650 mg Q6H PRN PO .PAIN 1-3 OR TEMP; Start 01/19/19 at 23:30 Heparin Sodium (Porcine) (Heparin (5000 Units/1ml)) 5,000 unit Q12 SC Last administered on 01/23/19at 08:50; Admin Dose 5,000 UNIT; Start 01/20/19 at 09:00; Status Hold Albuterol/ Ipratropium (Duoneb) 3 ml Q2H RESP THERAPY PRN HHN SHORTNESS OF BREATH; Start 01/19/19 at 23:30 Diagnostic Test (Pha) (Accu-Chek) 1 ea 02 XX Last administered on 01/25/19at 03:07; Admin Dose 1 EA; Start 01/20/19 at 02:00 Insulin Aspart (Novolog Insulin Pen) NOVOLOG *MILD* ALGORITHM WITH MEALS BEDTIME SC Last administered on 01/21/19at 12:54; Admin Dose 2 UNIT; Start 01/20/19 at 07:55 Atenolol (Tenormin) 25 mg DAILY PO Last administered on 01/25/19at 08:11; Admin Dose 25 MG; Start 01/20/19 at 09:00 Docusate Sodium (Colace) 100 mg TID PO Last administered on 01/25/19at 12:13; Admin Dose 100 MG; Start 01/20/19 at 09:00 Miscellaneous Information 1 ea NOTE XX ; Start 01/20/19 at 02:30 Glucose (Glutose) 15 gm Q15M PRN PO DECREASED GLUCOSE; Start 01/20/19 at 02:30 Glucose (Glutose) 22.5 gm Q15M PRN PO DECREASED GLUCOSE; Start 01/20/19 at 02:30 Dextrose (D50w Syringe) 25 ml Q15M PRN IV DECREASED GLUCOSE; Start 01/20/19 at 02:30 Dextrose (D50w Syringe) 50 ml Q15M PRN IV DECREASED GLUCOSE; Start 01/20/19 at 02:30 Glucagon (Glucagen) 1 mg Q15M PRN IM DECREASED GLUCOSE; Start 01/20/19 at 02:30 Glucose (Glutose) 15 gm Q15M PRN BUCCAL DECREASED GLUCOSE; Start 01/20/19 at 02:30 Piperacillin Sod/ Tazobactam Sod 50 ml @ 100 mls/hr Q6 IVPB Last administered on 01/25/19at 12:13; Admin Dose 100 MLS/HR; Start 01/20/19 at 18:00 Acetaminophen (Tylenol Supp) 650 mg Q6H PRN [place] ELEVATED TEMPERATURE Last administered on 01/20/19at 19:08; Admin Dose 650 MG; Start 01/20/19 at 19:00 Norepinephrine 250 ml @ 1.875 mls/ hr TITRATE IV Last administered on 01/21/19at 01:45; Admin Dose 1.875 MLS/HR; Start 01/21/19 at 00:30 Insulin Glargine (Lantus) 15 units DAILY@2000 SC Last administered on 01/24/19at 20:17; Admin Dose 15 UNITS; Start 01/21/19 at 20:00 ALYSSA MARLEY MD January 25, 2019 15:21
== END 2019-01-25 16:45 | disposition home or self-care (01) | DRG 871 ==
LOC: E/R 17:47 → TEL 20:50 → ICU 01-20 01:52 → OBSVTOIN 01-20 18:00 → 6WM 01-23 16:30
PROVIDERS: ADMIT Internal Medicine; ATTEND Internal Medicine
DX: A41.9 Sepsis, unspecified organism (principal); R65.21 Severe sepsis with septic shock; N17.0 Acute kidney failure with tubular necrosis; G93.41 Metabolic encephalopathy; K81.0 Acute cholecystitis; I48.91 Unspecified atrial fibrillation; E11.9 Type 2 diabetes mellitus without complications
CPT/HCPCS: 36415; 70450; 70551; 71045; 74176; 74181; 76705; 78226; 80048; 80053; 80061; 80076; 81001; 82550; 82553; 82962; 83036; 83735; 84132; 84443; 84484; 85025; 85610; 85730; 87081; 87086; 92610; 93005; 93306; 93880; 96374; 96375; 99217; G0378; A9537; J1644; J1815; J2270; J2405; J2543; J3475; J3480; J7030; J7040